=== PATIENT | female | born 1995 | race Caucasian/White ===

== ENCOUNTER → 2017-11-27 12:00 | Outpatient (REF) | payer MEDICAID, SELFPAY | LOC: LAB 12:00 | PROVIDERS: Visit Provider Nurse Practitioner Obstetrics & Gynecology | DX: Z34.90 Encounter for supervision of normal pregnancy, unspecified, unspecified trimester (principal) | CPT/HCPCS: 86403 ==

== ENCOUNTER 2017-11-29 10:58 | Outpatient (CLI) | payer MEDICAID, SELFPAY ==
[2017-11-29 11:15] VITALS: BP 134/80; PULSE 106; RESP 18; TEMP 36.6; O2SAT 99
[2017-11-29 11:17] VITALS: BP 134/80; RESP 18; TEMP 36.6; O2SAT 99; BMI 48.2
[2017-11-29 11:18] VITALS: BMI 30.4
[2017-11-29 11:40] LABS: Microscopic, Urine URINE MICROSCOPIC (MICROSCOPIC)
[2017-11-29 11:44] LABS: Appearance,Urine CLEAR (Clear); Bilirubin,Urine Negative (Negative); Blood, Urine Negative (Negative); Color,Urine STRAW (Yellow); Glucose,Urine (UA) Negative (Negative); Ketones,Urine Negative (Negative); Leukocyte Esterase,Urine TRACE (Negative); Nitrate,Urine Negative (Negative); Protein,Urine Negative (Negative); Specific Gravity, Urine 1.015 (1.005-1.030); Urobilinogen,Urine 0.2 EU/dl (0.2)
[2017-11-29 12:17] LABS: Bacteria,Urine Trace /lpf; WBC,Urine Occasional #/hpf (0-3)
[2017-11-29 12:23] LABS: Fetal Membrane Rupture (Rapid) Negative (Negative)
[2017-11-29 12:25] VITALS: BP 116/72; PULSE 91; RESP 18; TEMP 36.4; O2SAT 99
[2017-11-29 12:39] LABS: Fetal Fibronectin (Rapid) Negative (Negative)
== END 2017-11-29 12:50 | disposition home or self-care (01) ==
LOC: OBOUT 11:00 → OB 11:01
PROVIDERS: PCP Family Medicine; Visit Provider Nurse Practitioner Obstetrics & Gynecology
DX: O60.03 Preterm labor without delivery, third trimester (principal); Z3A.35 35 weeks gestation of pregnancy
CPT/HCPCS: 59025; 81001; 82731; 84112

== ENCOUNTER 2017-12-11 16:00 | Outpatient (CLI) | payer MEDICAID, SELFPAY ==
[2017-12-11 16:20] VITALS: BP 131/70; PULSE 110; RESP 16; TEMP 36.6; O2SAT 97
[2017-12-11 16:28] VITALS: PULSE 108; RESP 16; O2SAT 96; BMI 30.7
[2017-12-11 17:20] LABS: Microscopic, Urine URINE MICROSCOPIC (MICROSCOPIC)
[2017-12-11 17:25] LABS: Appearance,Urine SL CLOUDY (Clear); Bilirubin,Urine Negative (Negative); Blood, Urine Negative (Negative); Glucose,Urine (UA) Negative (Negative); Ketones,Urine Negative (Negative); Leukocyte Esterase,Urine TRACE (Negative); Nitrate,Urine Negative (Negative); Protein,Urine Negative (Negative); Specific Gravity, Urine 1.015 (1.005-1.030); Urobilinogen,Urine 0.2 EU/dl (0.2)
[2017-12-11 17:35] VITALS: BP 123/72; PULSE 90; RESP 16; O2SAT 97
[2017-12-11 17:36] LABS: Color,Urine Yellow (Yellow)
[2017-12-11 18:09] LABS: Bacteria,Urine 3+ /lpf
== END 2017-12-11 18:30 | disposition home or self-care (01) ==
LOC: OBOUT 16:04 → OB 16:06
PROVIDERS: Obstetrics & Gynecology; PCP Nurse Practitioner Obstetrics & Gynecology; Visit Provider Nurse Practitioner Obstetrics & Gynecology
DX: O26.93 Pregnancy related conditions, unspecified, third trimester (principal); Z3A.37 37 weeks gestation of pregnancy; M54.5 Low back pain
CPT/HCPCS: 59025; 81001; 87086; 96360; 96372

== ENCOUNTER 2017-12-26 15:37 | Outpatient (CLI) | payer MEDICAID, SELFPAY ==
[2017-12-26 15:45] VITALS: BMI 31.1
[2017-12-26 15:55] VITALS: BP 131/74; PULSE 118; RESP 18; TEMP 36.7; O2SAT 99; BMI 31.1
[2017-12-26 17:08] LABS: Microscopic, Urine URINE MICROSCOPIC (MICROSCOPIC)
[2017-12-26 17:11] LABS: Appearance,Urine CLEAR (Clear); Bilirubin,Urine Negative (Negative); Blood, Urine Negative (Negative); Color,Urine YELLOW (Yellow); Glucose,Urine (UA) Negative (Negative); Ketones,Urine Negative (Negative); Leukocyte Esterase,Urine 1+ (Negative); Nitrate,Urine Negative (Negative); Protein,Urine Negative (Negative); Urobilinogen,Urine 0.2 EU/dl (0.2)
[2017-12-26 17:25] LABS: Bacteria,Urine 3+ /lpf; RBC,Urine Occasional #/hpf (0-3); Squamous Epithelial Cell,Urine 20-50 #/hpf (0-5); WBC,Urine Occasional #/hpf (0-3)
== END 2017-12-26 17:25 | disposition home or self-care (01) ==
LOC: OBOUT 15:39 → OB 15:40
PROVIDERS: PCP Nurse Practitioner Family; Visit Provider Nurse Practitioner Obstetrics & Gynecology
DX: O60.03 Preterm labor without delivery, third trimester (principal); Z3A.39 39 weeks gestation of pregnancy
CPT/HCPCS: 59025; 81001; 87086

== ENCOUNTER 2018-01-02 04:51 | Inpatient (IN) | payer MEDICAID, SELFPAY ==
[2018-01-02 05:00] VITALS: BMI 30.9
[2018-01-02 06:15] VITALS: BP 120/70; PULSE 105; RESP 18; TEMP 36.7; O2SAT 99
[2018-01-02 06:26] LABS: Basophils % 0.3 % (0.1-2.0); Eosinophils # 0.3 K/mm3 (0.0-0.4); Eosinophils % 3.1 % (0.1-12.0); Hematocrit 30.1 % (37.0-47.0); Hemoglobin 10.2 g/dL (12.2-16.2); Lymphocytes # 2.4 K/mm3 (0.7-4.5); Lymphocytes % 23.8 K/mm3 (10-50); Mean Corpuscular Hemoglobin 32.3 pg (27.0-31.2); Mean Platelet Volume 8.1 fl (7.4-10.4); Monocytes # 0.5 K/mm3 (0.1-1.0); Monocytes % 4.8 % (1.7-9.3); Neutrophils % 67.9 % (37.0-80.0); Platelet Count 365 K/mm3 (142-424); Red Blood Count 3.17 M/mm3 (4.20-5.40); Red Cell Distribution Width 13.6 % (11.5-17.5); White Blood Count 10.2 K/mm3 (4.8-10.8)
--- NOTE | 2018-01-02 07:25 | HMH.LABNOT ---
Labor Note - Subjective: Date: 01/02/18 Time: 07:25 regular contraction - Objective: NST:: Reactive Contractions:: every 4-5 minutes Cervical Dilation:: 2-3 Effacement:: 50% Station: -2 Membranes: articially ruptured - Fetus: Monitoring?: Yes monitoring type:: External - Assessment: Labor progressing?: Yes Cephalopelvic disproportion?: No Patient Problems: All Active Problems (Acute) - Plan: Anesthesia for epidural?: No Continue to labor down?: Yes Plan for ?: No Continue to monitor?: Yes
--- NOTE | 2018-01-02 10:23 | HMH.LABNOT ---
Labor Note - Subjective: Date: 01/02/18 Time: 10:23 regular contraction - Objective: NST:: Reactive Contractions:: every 2-3 minutes Cervical Dilation:: 4 Effacement:: 90% Station: -1 Membranes: articially ruptured - Fetus: Monitoring?: Yes monitoring type:: External - Assessment: Labor progressing?: Yes Cephalopelvic disproportion?: No Patient Problems: All Active Problems (Acute) - Plan: Anesthesia for epidural?: No Continue to labor down?: Yes Plan for ?: No Continue to monitor?: Yes
--- NOTE | 2018-01-02 10:36 | P.HP_ITS ---
OB - H&P: HPI Antepartum - History of Present Illness Chief complaint: She is having occasional contractions. She is feeling pressure. - History of Present Criteria for establishing EDC:: LMP confirmed by 1st trimester US care: good care Ultrasounds: normal 1st trimester US, normal mid trimester US Obstetrical complications: none Medical complications: none [facility] History I have reviewed the patient's past medical history: Yes Medical History: Reports:: Depression Denies:: Cancer, Diabetes Mellitus Type 1, Diabetes Mellitus Type 2, MRSA Other Surgeries: Yes: No Previous Surgery Amputation: No Fractures: No - *Social History Educational Level: Completed High School Smoking Status: Current every day smoker Tobacco Type: cigarettes # Packs/Day (cigarettes): 10 #Yrs smoked (if former smoker): 1 Alcohol Intake: never Substance Use Type: denies use Occupational Status: employed Household Members: spouse, children - Psychiatric History Expresses thoughts of harming self/others: None Suicide Plan Description: No Plan Pschychiatric History:: Reports:: Depression *Family Hx:: Diabetes, Hypertension Review of Systems - Review of Systems Review of systems:: pertinent systems reviewed and negative unless documented below Meds Home Medications Medication Instructions Recorded Confirmed Type ferrous sulfate 325 mg (65 mg 325 mg PO DAILY tab 11/26/17 01/02/18 History iron) tablet pediatric multivitamin no.49 1 tab PO DAILY each 11/26/17 01/02/18 History chewable tablet Allergies Allergy/AdvReac Type Severity Reaction Status Date / Time penicillin G [PENICILLIN G] Allergy Mild -- Verified 12/20/17 09:52 OB - H&P: Exam - Physical Exam Vital signs: Temp Pulse Resp BP Pulse Ox 98.1 F 105 H 18 120/70 99 01/02/18 06:15 01/02/18 06:15 01/02/18 06:15 01/02/18 06:15 01/02/18 06:15 - Constitutional no acute distress - Routine HEENT Exam Head: Present: normocephalic OB - Results - Labs Labs: Short CBC 01/02/18 Range/Units 05:30 WBC 10.2 (4.8-10.8) K/mm3 Hgb 10.2 L (12.2-16.2) g/dL Hct 30.1 L (37.0-47.0) % Plt Count 365 (142-424) K/mm3 OB - A/P Antepartum (1) Normal delivery at term Current visit: Yes Status: Acute - Additional Plan Plan: expectant management (She is having occasional contractions and she is 39 + weeks gestational age. She is 4 cm dilated and josefina so we will deliver her.) Planning to breastfeed?: Yes
--- NOTE | 2018-01-02 12:21 | HMH.LABNOT ---
Labor Note - Subjective: Date: 01/02/18 Time: 12:22 regular contraction - Objective: NST:: Reactive Contractions:: every 2-3 minutes Cervical Dilation:: 6 Effacement:: 100% Station: 0 Membranes: articially ruptured - Fetus: Monitoring?: Yes monitoring type:: External - Assessment: Labor progressing?: Yes Cephalopelvic disproportion?: No Patient Problems: All Active Problems Normal delivery at term (Acute) (Acute) - Plan: Anesthesia for epidural?: Yes Continue to labor down?: Yes Plan for ?: No Continue to monitor?: Yes Start pushing?: No
--- NOTE | 2018-01-02 13:25 | HMH.LABNOT ---
Labor Note - Subjective: Date: 01/02/18 Time: 13:25 regular contraction - Objective: NST:: Reactive Contractions:: every 2-3 minutes Cervical Dilation:: 9 Effacement:: 100% Station: 0 Membranes: articially ruptured - Fetus: Monitoring?: Yes monitoring type:: External - Assessment: Labor progressing?: Yes Cephalopelvic disproportion?: No Patient Problems: All Active Problems Normal delivery at term (Acute) (Acute) - Plan: Anesthesia for epidural?: Yes Continue to labor down?: Yes Plan for ?: No Continue to monitor?: Yes Start pushing?: No
--- NOTE | 2018-01-02 15:19 | P.PCN_ITS ---
- Delivery Note Delivery Date:: 01/02/18 Delivery Time:: 15:05 Anesthesia Type: Epidural Was labor medically induced?: No Induction method: none delivered prior to 39 weeks?: No Gender: Male at 1 minute: 9 at 5 minutes: 9 AF:: Clear fluid Delivery Procedure:: She is a 22-year-old 2 para 1 who was 40 and 1 weeks gestational age. She came in having a few contractions and as result of that we elected to augment her labor. She was started on IV oxytocin had her membranes ruptured. Under labor epidural she progressed to full dilation and delivered spontaneously a liveborn male child. On deliver the head there was a loose nuchal cord which was easily reduced. This was followed by the rest of the infant's body atraumatically. The baby cried spontaneously. The nasopharynx and oropharynx were bulb suctioned. We allowed the cord to continue to pulsate for approximately 45 seconds. The cord was then doubly clamped and cut and the was handed off to nurses who assigned Apgars of 9 at 1 minute and 9 at 5 minutes. We then obtained cord blood as well as cord pH. The pH is currently pending. Using gentle traction on the cord and countertraction on the fundus I was able to easily deliver the placenta intact. He had a normal three-vessel cord. There were no perineal or vaginal lacerations. She has B+ blood, she is rubella immune and was group B streptococcus negative. She plans to bottle feed. Her grease rack worker Dr. Durham. Estimated blood loss was 400 cc. Placental Delivery Description: Spontaneous
[2018-01-03 06:47] LABS: Hematocrit 29.1 % (37.0-47.0); Hemoglobin 9.7 g/dL (12.2-16.2)
--- NOTE | 2018-01-03 10:33 | HMH.ACPN2 ---
Internal Medicine - PN: Subj *Date: 01/03/18 *Time: 10:33 Interval history: She has done well overnight. She is eating and drinking and ambulating. She is bottlefeeding. Her lochia is normal. Exam Vital signs and Labs for Last 24 Hours: Temp Pulse Resp BP Pulse Ox 98.1 F 105 H 18 120/70 99 01/02/18 06:15 01/02/18 06:15 01/02/18 06:15 01/02/18 06:15 01/02/18 06:15 Laboratory Results - last 24 hr 01/02/18 15:15: Cord ABG pH 7.40 01/03/18 06:30: Hgb 9.7 L, Hct 29.1 L I & O for Last 24 hours: Intake & Output 12/31/17 01/01/18 01/02/18 01/03/18 11:59 11:59 11:59 11:59 Weight 175 lb - Constitutional no acute distress Assessment and Plan (1) Normal delivery at term Current visit: Yes Status: Acute Category: Medical Code(s): O80 - Encounter for full-term uncomplicated delivery - Assessment and plan all Dx Assessment and Plan for all problems:: She continues to do very well. She is eating and drinking and ambulating. We will plan to send her home tomorrow.
--- NOTE | 2018-01-03 19:15 | PC.NURSE ---
Report received from JARED Cochran and JARED William.
[2018-01-03 22:34] VITALS: BP 121/59; PULSE 77; RESP 18; TEMP 36.6
--- NOTE | 2018-01-04 08:08 | HMH.DCSUM ---
General - General Admission date: 01/02/18 Discharge date: 01/04/18 HPI HPI: She is a 22-year-old 2 now para 2 who was 40 and 1 weeks gestational age. She is having pressure and occasional contractions and as a result of that we elected to augment her labor. Objective Vital signs: Temp Pulse Resp BP Pulse Ox 97.8 F 77 18 121/59 99 01/03/18 22:34 01/03/18 22:34 01/03/18 22:34 01/03/18 22:34 01/02/18 06:15 no acute distress Hospital Course Hospital Course: She had her membranes ruptured and was augmented with oxytocin. She progressed to full dilation and delivered spontaneously a liveborn male child at 3:05 PM in the afternoon of January 02, 2018. The baby had Apgars of 9 at 1 minute and 9 at 5 minutes. She has done well and has remained afebrile throughout her hospitalization. She is eating and drinking and ambulating. She is bottlefeeding. Her lockstitch front maker is Dr. Durham. She has B+ blood, she is rubella immune and was group B Streptococcus negative. She is discharged home to follow-up with me in approximately 2 weeks time. She will take [id number] analgesics for pain. She will continue with her vitamins and iron. DS: Diagnosis - Discharge Diagnosis (1) Normal delivery at term Status: Acute Discharge Plan - Patient Discharge Instructions ACTIVITY: Continue current activity, No heavy lifting DIET: continue same diet - Follow up Plan Disposition: Home, Self-Assisted Medications: Home Medications Medication Instructions Recorded Confirmed Type ferrous sulfate 325 mg (65 mg 325 mg PO DAILY tab 11/26/17 01/02/18 History iron) tablet pediatric multivitamin no.49 1 tab PO DAILY each 11/26/17 01/02/18 History chewable tablet Prescriptions/Medication Reconciliation: Continue ferrous sulfate 325 mg (65 mg iron) tablet 325 mg PO DAILY tab pediatric multivitamin no.49 chewable tablet 1 tab PO DAILY each ranitidine 150 mg tablet 150 mg PO BID 30 Days #60 tab
--- NOTE | 2018-01-04 08:12 | P.DS_ITS ---
General - General Admission date: 01/02/18 Discharge date: 01/04/18 HPI HPI: She is a 22-year-old 2 now para 2 who was 40 and 1 weeks gestational age. She is having pressure and occasional contractions and as a result of that we elected to augment her labor. Objective Vital signs: Temp Pulse Resp BP Pulse Ox 97.8 F 77 18 121/59 99 01/03/18 22:34 01/03/18 22:34 01/03/18 22:34 01/03/18 22:34 01/02/18 06:15 no acute distress Hospital Course Hospital Course: She had her membranes ruptured and was augmented with oxytocin. She progressed to full dilation and delivered spontaneously a liveborn male child at 3:05 PM in the afternoon of January 02, 2018. The baby had Apgars of 9 at 1 minute and 9 at 5 minutes. She has done well and has remained afebrile throughout her hospitalization. She is eating and drinking and ambulating. She is bottlefeeding. Her extension course coordinator is Dr. Durham. She has B+ blood, she is rubella immune and was group B Streptococcus negative. She is discharged home to follow-up with me in approximately 2 weeks time. She will take [id number] analgesics for pain. She will continue with her vitamins and iron. DS: Diagnosis - Discharge Diagnosis (1) Normal delivery at term Status: Acute Discharge Plan - Patient Discharge Instructions ACTIVITY: Continue current activity, No heavy lifting DIET: continue same diet - Follow up Plan Disposition: Home, Self-Senior Living Medications: Home Medications Medication Instructions Recorded Confirmed Type ferrous sulfate 325 mg (65 mg 325 mg PO DAILY tab 11/26/17 01/02/18 History iron) tablet pediatric multivitamin no.49 1 tab PO DAILY each 11/26/17 01/02/18 History chewable tablet Prescriptions/Medication Reconciliation: Continue ferrous sulfate 325 mg (65 mg iron) tablet 325 mg PO DAILY tab pediatric multivitamin no.49 chewable tablet 1 tab PO DAILY each ranitidine 150 mg tablet 150 mg PO BID 30 Days #60 tab
== END 2018-01-04 11:15 | disposition home or self-care (01) | DRG 775 ==
LOC: OB 04:52
PROVIDERS: Admitting Provider Obstetrics & Gynecology; Family Provider Nurse Anesthetist, Certified Registered; Visit Provider Nurse Practitioner Obstetrics & Gynecology
DX: O69.81X0 Labor and delivery complicated by cord around neck, without compression, not applicable or unspecified (principal); Z37.0 Single live birth; Z3A.40 40 weeks gestation of pregnancy
CPT/HCPCS: 59409; 36415; 59025; 82800; 85014; 85018; 85025; 86850

== ENCOUNTER 2018-03-20 00:43 | Observation (INO) ==
--- NOTE | 2018-03-20 00:58 | Emergency Department Note ---
ED Disposition Clinical Impression: Pelvic pain, Pelvic fluid collection Disposition: Still a Patient Condition on Discharge: Good Referrals: Nita Durham DO [Primary Care Provider] - - Critical Care Critical Care Time: No Attestation: On 03/20/18, the high probability of a clinically significant, sudden or life threatening deterioration of the following system(s) required my full and direct attention, intervention and personal management. The time I documented below is in addition to time spent performing reported procedures but includes the following listed in this critical care notation. Medical Decision Making - Tariq Inquiry Pt receiving controlled substance: No Vital Signs: 03/20/18 00:44 Temperature 97.9 F Temperature Source Oral Pulse Rate [Right Radial] 116 H Respiratory Rate 20 Blood Pressure [Right Arm] 125/60 Blood Pressure Mean [Right Arm] 81 Blood Pressure Source [Right Arm] Automatic Cuff Blood Pressure Position [Right Arm] Sitting 02 Sat by Pulse Oximetry 100 Oxygen Delivery Method Room Air - Lab Data Lab Results 03/20/18 01:00: Urine Color Yellow, Urine Appearance Clear, Urine pH 6.5, Ur Specific [place] 1.015, Urine Protein Negative, Urine Glucose (UA) Negative, Urine Ketones Negative, Urine Blood Negative, Urine Nitrate Negative, Urine Bilirubin Negative, Urine Urobilinogen 0.2, Ur Leukocyte Esterase Negative, Urine WBC Occasional, Ur Squamous Epith Cells Occasional, Urine Bacteria Trace 03/20/18 01:00: WBC 11.1 H, RBC 3.70 L, Hgb 11.7 L, Hct 35.0 L, MCV 94.5, MCH 31.6 H, MCHC 33.4, RDW 13.5, Plt Count 341, MPV 7.7, Neut % (Auto) 65.4, Lymph % (Auto) 25.4, [place] % (Auto) 5.0, Eos % (Auto) 3.8, Baso % (Auto) 0.3, Neut # ( Auto) 7.3, Lymph # (Auto) 2.8, [place] # (Auto) 0.6, Eos # (Auto) 0.4, Baso # (Auto ) 0.0 03/20/18 01:00: Urine HCG, Qual Negative 03/20/18 01:00: Sodium 140, Potassium 3.5, Chloride 105, Carbon Dioxide 26, Anion Gap 12.5, BUN 8, Creatinine 0.85, Estimated Creat Clear 121, Estimated GFR 82, Est GFR ( Amer) 99, Glucose 109 H, Calcium 8.8, Total Bilirubin 0.2, AST 19, ALT 33, Alkaline Phosphatase 91, Total Protein 7.3, Albumin 3.7, Globulin 3.6 H, Albumin/Globulin Ratio 1.0 L, Amylase 36, Lipase 131 Result diagrams: 03/20/18 01:00 03/20/18 01:00 Orders (Tests/Meds): ED MEDICATIONS Discontinued Medications Generic Name Dose Route Start Last Admin Trade Name Freq PRN Reason Stop Dose Admin Acetaminophen 650 mg 03/20/18 02:08 03/20/18 02:10 Acetaminophen 325mg Tab PO 03/20/18 02:09 650 mg ONCE ONE Administration Sodium Chloride 1,000 mls @ 999 mls/hr 03/20/18 01:00 03/20/18 01:00 Sod Chlor 0.9% 1000ml Bag IV 03/20/18 02:00 Not Given .Q1H1M SEAMUS Lactated Ringer's 1,000 mls @ 999 mls/hr 03/20/18 01:00 03/20/18 01:04 Lactated Ringer's 1000 Ml Bag IV 03/20/18 02:00 999 mls/hr .Q1H1M SEAMUS Administration Iopamidol 75 ml 03/20/18 02:14 03/20/18 02:16 [id number]; 75ml Vial IV 03/20/18 02:15 75 ml ONCE ONE Administration Ondansetron HCl 4 mg 03/20/18 00:56 03/20/18 01:04 Zofran 4mg/2ml Vial IV 03/20/18 00:57 4 mg ONCE ONE Administration Sodium Chloride 10 ml 03/20/18 02:14 03/20/18 02:15 Rad-Saline Flush 10ml Syringe IV 03/20/18 02:15 10 ml ONCE ONE Administration ORDERS Category Date Time Status CT abdomen pelvis w con Stat Cat Scan 03/20/18 01:10 Taken Urinalysis and Microscopic Stat Lab 03/20/18 01:47 Ordered - CT Data CT Scan: Abdomen, Pelvis Time Received: 02:[address] Reviewed: Yes: I have viewed the radiologist's interpretation Findings Narrative: CT scan interpreted by [facility] radiologist. Faxed report received and reviewed: Normal appendix. Mildly complex free pelvic fluid measuring 6.8 x 6.8 x 5.2 cm. Subtle peritoneal enhancement is felt to be present. Recommend laboratory correlation for potential abscess. Medical Decision Narrative: 2:20 AM: Case discussed with Dr. Santos. He prefers to admit the patient to observation, pelvic ultrasound this morning, repeat CBC at 6 AM. Patient agreeable. General Adult HPI - General Chief complaint: Back Pain/Injury Stated complaint: Lower Back Pain,Cramping in Abdominal area Time Seen by Provider: 03/20/18 01:00 Mode of Arrival: Ambulatory Limitations: No Limitations Description of Symptoms (Recalled from ER Triage Doc. by RN): had some cramps at work earlier today, low back pain and into abdomen with cramping during sex, started about 30 minutes ago, 2 months post pardum, due for period in about 2 days - History of Present Illness HPI narrative: Pelvic cramping since Sunday 2 days ago. Got worse in the past couple of hours. Pain radiates up her right side and she also has pain in her sacral area. She had bilateral salpingectomy on 02/26/18 for sterilization. No vaginal bleeding for 2 weeks. States normal bowel movements, no constipation, no urinary symptoms, no fever. - Related Data Home Medications Medication Instructions Recorded Confirmed raNITIdine HCl [Ranitidine HCl] 150 mg PO DAILY 03/20/18 03/20/18 Allergies Allergy/AdvReac Type Severity Reaction Status Date / Time penicillin G [PENICILLIN G] Allergy Mild -- Verified 03/13/18 14:00 [facility] History I have reviewed the patient's past medical history: Yes Medical History: Reports:: Depression Denies:: Cancer, Diabetes Mellitus Type 1, Diabetes Mellitus Type 2, MRSA, Seizures Other Medical History: Reports: Other. Denies: Blood Transfusion Reaction Other Surgeries: Yes: No Previous Surgery Amputation: No Fractures: No - Social History Smoking Status: Current every day smoker Tobacco Type: cigarettes # Packs/Day (cigarettes): 1 #Yrs smoked (if former smoker): 1 Alcohol Intake: never Substance Use Type: denies use Occupational Status: employed Household Members: spouse, children - Psychiatric History Expresses thoughts of harming self/others: None Suicide Plan Description: No Plan Pschychiatric History:: Reports:: Depression Family Hx:: Diabetes, Hypertension Comment: Twins ROS Obtained: Yes All systems reviewed & no additional complaints - Constitutional Constitutional: Denies fever(s) - Gastrointestinal Gastrointestingal: Reports: abdominal pain. Denies: constipation, diarrhea, vomiting - Genitourinary Female Genitourinary: Denies abnormal vaginal bleeding, Denies difficulty voiding - Musculoskeletal Musculoskeletal: Reports back pain Physical Exam - General General appearance: alert, in no apparent distress - Head Head exam: atraumatic, normocephalic, normal inspection - Eye Eye exam: Present: normal appearance, PERRL, EOMI - ENT ENT exam: Present: normal exam, normal oropharynx, mucous membranes moist, TM's normal bilaterally, normal external ear exam - Neck Neck exam: Present: normal inspection, full ROM, trachea midline. Absent: meningismus, lymphadenopathy - Chest Chest inspection: Present: normal inspection, symmetric chest wall rise. Absent : tenderness - Respiratory Respiratory exam: Present: normal lung sounds bilaterally. Absent: respiratory distress - Cardiovascular Cardiovascular exam: Present: regular rate, normal rhythm. Absent: JVD - Abdominal Exam Abdominal exam: Present: soft, tenderness, guarding, normal bowel sounds. Absent: distention Abdominal tenderness: Present: RLQ, LLQ, suprapubic - Extremities Exam Extremities exam: Present: normal inspection, full ROM, normal capillary refill. Absent: calf tenderness - Neurological Exam Neurological exam: Present: alert, oriented X3 - Psychiatric Psychiatric exam: Present: normal affect, normal mood - Skin Skin exam: Present: warm, dry, intact, normal color - Lymphatic Lymphatic Findings: no adenopathy
[2018-03-20 01:08] LABS: Appearance,Urine CLEAR (Clear); Bilirubin,Urine Negative (Negative); Blood, Urine Negative (Negative); Color,Urine YELLOW (Yellow); Glucose,Urine (UA) Negative (Negative); Ketones,Urine Negative (Negative); Leukocyte Esterase,Urine Negative (Negative); Microscopic, Urine URINE MICROSCOPIC (MICROSCOPIC); PH,Urine 6.5 (5.0-8.5); Protein,Urine Negative (Negative); Specific Gravity, Urine 1.015 (1.005-1.030); Urobilinogen,Urine 0.2 EU/dl (0.2)
[2018-03-20 01:09] LABS: Basophils % 0.3 % (0.1-2.0); Eosinophils # 0.4 K/mm3 (0.0-0.4); Eosinophils % 3.8 % (0.1-12.0); Hemoglobin 11.7 g/dL (12.2-16.2); Lymphocytes # 2.8 K/mm3 (0.7-4.5); Lymphocytes % 25.4 K/mm3 (10-50); Mean Corpuscular HGB Conc 33.4 g/dL (31.8-35.4); Mean Corpuscular Hemoglobin 31.6 pg (27.0-31.2); Mean Corpuscular Volume 94.5 fl (81-99); Mean Platelet Volume 7.7 fl (7.4-10.4); Monocytes # 0.6 K/mm3 (0.1-1.0); Neutrophils # 7.3 K/mm3 (1.8-7.8); Neutrophils % 65.4 % (37.0-80.0); Platelet Count 341 K/mm3 (142-424); Red Cell Distribution Width 13.5 % (11.5-17.5); White Blood Count 11.1 K/mm3 (4.8-10.8)
[2018-03-20 01:12] LABS: Bacteria,Urine Trace /lpf; Squamous Epithelial Cell,Urine Occasional #/hpf (0-5); WBC,Urine Occasional #/hpf (0-3)
[2018-03-20 01:29] LABS: Albumin Level 3.7 gm/dL (3.4-5.0); Anion Gap 12.5 mEq/L (5-15); Bilirubin,Total 0.2 mg/dL (0.2-1.0); Calcium 8.8 mg/dL (8.5-10.1); Globulin 3.6 gm/dl (1.3-3.2); Potassium 3.5 mmoL/L (3.5-5.1); Total Protein,Serum 7.3 gm/dL (6.4-8.2)
[2018-03-20 06:41] LABS: Basophils % 0.4 % (0.1-2.0); Eosinophils # 0.3 K/mm3 (0.0-0.4); Eosinophils % 3.1 % (0.1-12.0); Hematocrit 34.7 % (37.0-47.0); Hemoglobin 11.4 g/dL (12.2-16.2); Lymphocytes # 2.4 K/mm3 (0.7-4.5); Mean Corpuscular HGB Conc 32.9 g/dL (31.8-35.4); Mean Corpuscular Hemoglobin 31.4 pg (27.0-31.2); Mean Corpuscular Volume 95.3 fl (81-99); Mean Platelet Volume 7.6 fl (7.4-10.4); Monocytes # 0.6 K/mm3 (0.1-1.0); Monocytes % 5.3 % (1.7-9.3); Neutrophils # 7.6 K/mm3 (1.8-7.8); Neutrophils % 69.3 % (37.0-80.0); Platelet Count 325 K/mm3 (142-424); Red Blood Count 3.64 M/mm3 (4.20-5.40); Red Cell Distribution Width 13.5 % (11.5-17.5)
--- NOTE | 2018-03-20 08:06 | History & Physical Report ---
*Admission Date: 03/20/18 *Chief complaint: Pelvic pain *History of present illness: She came into the ER last night with lower abdominal pain. She said that she was having sex and as soon as she started she began to have severe lower abdominal pain. She had a bilateral salpingectomy for family planning on February 26, 2018. Since that time she says she has had sexual intercourse and had no pain. She denies fever or chills. [facility] History I have reviewed the patient's past medical history: Yes Medical History: Reports:: Depression Denies:: Cancer, Diabetes Mellitus Type 1, Diabetes Mellitus Type 2, MRSA, Seizures Other Medical History: Reports: Other. Denies: Blood Transfusion Reaction Other Surgeries: Yes: No Previous Surgery, Tubal Ligation Amputation: No Fractures: No - *Social History Educational Level: Completed High School Smoking Status: Current every day smoker Tobacco Type: cigarettes # Packs/Day (cigarettes): 1 #Yrs smoked (if former smoker): 1 Alcohol Intake: never Substance Use Type: denies use Occupational Status: employed Housing: house Household Members: spouse, children - Psychiatric History Expresses thoughts of harming self/others: None Suicide Plan Description: No Plan Pschychiatric History:: Reports:: Depression *Family Hx:: Diabetes, Hypertension Review of Systems - Review of Systems Review of systems:: pertinent systems reviewed and negative unless documented below Meds Home Medications Medication Instructions Recorded Confirmed Type raNITIdine HCl [Ranitidine HCl] 150 mg PO BID 03/20/18 03/20/18 History Allergies Allergy/AdvReac Type Severity Reaction Status Date / Time No Known Allergies Allergy Verified 03/20/18 03:19 Exam Vital signs and Labs for Last 24 Hours: Temp Pulse Resp BP Pulse Ox 98.1 F 93 H 16 106/52 100 03/20/18 07:57 03/20/18 07:57 03/20/18 07:57 03/20/18 07:57 03/20/18 07:57 Laboratory Results - last 24 hr 03/20/18 01:00: Urine Color Yellow, Urine Appearance Clear, Urine pH 6.5, Ur Specific [place] 1.015, Urine Protein Negative, Urine Glucose (UA) Negative, Urine Ketones Negative, Urine Blood Negative, Urine Nitrate Negative, Urine Bilirubin Negative, Urine Urobilinogen 0.2, Ur Leukocyte Esterase Negative, Urine WBC Occasional, Ur Squamous Epith Cells Occasional, Urine Bacteria Trace 03/20/18 01:00: WBC 11.1 H, RBC 3.70 L, Hgb 11.7 L, Hct 35.0 L, MCV 94.5, MCH 31.6 H, MCHC 33.4, RDW 13.5, Plt Count 341, MPV 7.7, Neut % (Auto) 65.4, Lymph % (Auto) 25.4, Story % (Auto) 5.0, Eos % (Auto) 3.8, Baso % (Auto) 0.3, Neut # ( Auto) 7.3, Lymph # (Auto) 2.8, Story # (Auto) 0.6, Eos # (Auto) 0.4, Baso # (Auto ) 0.0 03/20/18 01:00: Urine HCG, Qual Negative 03/20/18 01:00: Sodium 140, Potassium 3.5, Chloride 105, Carbon Dioxide 26, Anion Gap 12.5, BUN 8, Creatinine 0.85, Estimated Creat Clear 121, Estimated GFR 82, Est GFR ( Amer) 99, Glucose 109 H, Calcium 8.8, Total Bilirubin 0.2, AST 19, ALT 33, Alkaline Phosphatase 91, Total Protein 7.3, Albumin 3.7, Globulin 3.6 H, Albumin/Globulin Ratio 1.0 L, Amylase 36, Lipase 131 03/20/18 06:05: WBC 11.0 H, RBC 3.64 L, Hgb 11.4 L, Hct 34.7 L, MCV 95.3, MCH 31.4 H, MCHC 32.9, RDW 13.5, Plt Count 325, MPV 7.6, Neut % (Auto) 69.3, Lymph % (Auto) 22.0, Story % (Auto) 5.3, Eos % (Auto) 3.1, Baso % (Auto) 0.4, Neut # ( Auto) 7.6, Lymph # (Auto) 2.4, Story # (Auto) 0.6, Eos # (Auto) 0.3, Baso # (Auto ) 0.0 I & O for Last 24 hours: Intake & Output 03/17/18 03/18/18 03/19/18 03/20/18 11:59 11:59 11:59 11:59 Weight 161 lb 6 oz - Constitutional no acute distress - *Routine HEENT Exam Head: Present: normocephalic - *Routine Respiratory Exam Comments: She has normal breath sounds with no accessory muscle use. - *Routine Cardiovascular Exam Present: RRR - *Routine Abdominal Exam Present: soft, tenderness Comments: She is slightly tender to palpation but there is no peritoneal signs. Her belly is soft. - *Routine Exam Patient deferred: external exam, perineal exam - *Routine Extremities Exam Comments: She has good range of motor of all her extremities. - *Routine Skin Exam Present: intact H&P: Result - Labs Labs: Short CBC 03/20/18 03/20/18 Range/Units 01:00 06:05 WBC 11.1 H 11.0 H (4.8-10.8) K/mm3 Hgb 11.7 L 11.4 L (12.2-16.2) g/dL Hct 35.0 L 34.7 L (37.0-47.0) % Plt Count 341 325 (142-424) K/mm3 BMP 03/20/18 01:00 Sodium 140 Potassium 3.5 Chloride 105 Carbon Dioxide 26 BUN 8 Creatinine 0.85 Glucose 109 H Calcium 8.8 Liver Function 03/20/18 Range/Units 01:00 Total Bilirubin 0.2 (0.2-1.0) mg/dL AST 19 (15-37) U/L ALT 33 (12-78) U/L Alkaline Phosphatase 91 (46-116) U/L Albumin 3.7 (3.4-5.0) gm/dL Urine 03/20/18 Range/Units 01:00 Urine Color Yellow (Yellow) Urine Appearance Clear (Clear) Urine pH 6.5 (5.0-8.5) Ur Specific [place] 1.015 (1.005-1.030) Urine Protein Negative (Negative) Urine Glucose (UA) Negative (Negative) Assessment and Plan (1) Pelvic fluid collection Current visit: Yes Status: Acute Category: Medical Code(s): R18.8 - Other ascites (2) Pelvic pain Current visit: Yes Status: Acute Category: Medical Code(s): R10.2 - Pelvic and perineal pain - Assessment and plan all Dx Assessment and Plan for all problems:: She had a CT scan last night that showed a 6 cm collection of fluid in the pelvis. They were concerned about an abscess but she has no evidence of this on her clinical examination. I suspect she may have had a ruptured ovarian cyst since she had pain with intercourse as soon as she started. We will get a transvaginal ultrasound this morning to confirm this collection of fluid. If there is any doubt about an abscess we will certainly plan to perform surgery later today. Her white cell count is just 11. It has not changed overnight. She has no fever. Is not been taking anything for pain. She took one Tylenol last night.
--- NOTE | 2018-03-20 08:21 | Pharmacy Consult Notes ---
[facility] Pharmacy VTE Monitoring - Patient Demographics Admission date: 03/19/18 Report Date: 03/20/18 Time: 08:21 Allergies/Adverse Reactions: Patient Allergies No Known Allergies Allergy (Verified 03/20/18 03:19) Height: 1.6 m Weight: 73.198 kg Patient Problems: Current Active Problems Pelvic pain (Acute) Pelvic fluid collection (Acute) - VTE Risk Labs: VTE Related Lab Results Hgb 11.4 g/dL (12.2-16.2) L 03/20/18 06:05 Hct 34.7 % (37.0-47.0) L 03/20/18 06:05 Plt Count 325 K/mm3 (142-424) 03/20/18 06:05 BUN 8 mg/dL (7-18) 03/20/18 01:00 Creatinine 0.85 mg/dL (0.55-1.02) 03/20/18 01:00 Estimated Creat Clear 121 mL/min (0-300) 03/20/18 01:00 Was VTE Risk Assessment Performed: Yes VTE Score: 1 VTE Risk Level: Very Low Risk Clinical Trial Participant: No - Prophylaxis VTE Prophylaxis Ordered?: Yes Types of VTE Prophylaxis: TEDS Knee High
[2018-03-20 16:03] VITALS: BP 102/60
--- NOTE | 2018-03-20 17:02 | Discharge Summary ---
General - General Admission date:: 03/20/18 Discharge date: 03/20/18 HPI HPI: She came into the ER last night with lower abdominal pain. She said that she was having sex and as soon as she started she began to have severe lower abdominal pain. She had a bilateral salpingectomy for family planning on February 26, 2018. Since that time she says she has had sexual intercourse and had no pain. She denies fever or chills. Hospital Course Hospital Course: She has been doing well throughout the day. She had a repeat ultrasound that just showed a 5 cm hemorrhagic ovarian cyst on the right ovary. There was some fluid in the pelvis. Her white cell count has not gone up and she has remained afebrile. Her pain is mild to moderate. It is not gotten any worse. She is just been taking Tylenol for pain. We will plan to discharge her home today to follow-up with me early next week with another ultrasound. We will return to the ER if she gets any further episodes of pain or fever. Objective Vital signs: Temp Pulse Resp BP Pulse Ox 98.1 F 78 16 102/60 96 03/20/18 15:55 03/20/18 15:55 03/20/18 15:55 03/20/18 15:55 03/20/18 15:55 no acute distress Results Labs on day of discharge: Labs from last 24 hours 03/20/18 03/20/18 03/20/18 06:05 01:00 01:00 WBC 11.0 H RBC 3.64 L Hgb 11.4 L Hct 34.7 L MCV 95.3 MCH 31.4 H MCHC 32.9 RDW 13.5 Plt Count 325 MPV 7.6 Neut % (Auto) 69.3 Lymph % (Auto) 22.0 Craig % (Auto) 5.3 Eos % (Auto) 3.1 Baso % (Auto) 0.4 Neut # (Auto) 7.6 Lymph # (Auto) 2.4 Craig # (Auto) 0.6 Eos # (Auto) 0.3 Baso # (Auto) 0.0 Sodium 140 Potassium 3.5 Chloride 105 Carbon Dioxide 26 Anion Gap 12.5 BUN 8 Creatinine 0.85 Estimated Creat Clear 121 Estimated GFR 82 Est GFR ( Amer) 99 Glucose 109 H Calcium 8.8 Total Bilirubin 0.2 AST 19 ALT 33 Alkaline Phosphatase 91 Total Protein 7.3 Albumin 3.7 Globulin 3.6 H Albumin/Globulin Ratio 1.0 L Amylase 36 Lipase 131 Urine Color Urine Appearance Urine pH Ur Specific [place] Urine Protein Urine Glucose (UA) Urine Ketones Urine Blood Urine Nitrate Urine Bilirubin Urine Urobilinogen Ur Leukocyte Esterase Urine WBC Ur Squamous Epith Cells Urine Bacteria Urine HCG, Qual Negative 03/20/18 03/20/18 01:00 01:00 WBC 11.1 H RBC 3.70 L Hgb 11.7 L Hct 35.0 L MCV 94.5 MCH 31.6 H MCHC 33.4 RDW 13.5 Plt Count 341 MPV 7.7 Neut % (Auto) 65.4 Lymph % (Auto) 25.4 Craig % (Auto) 5.0 Eos % (Auto) 3.8 Baso % (Auto) 0.3 Neut # (Auto) 7.3 Lymph # (Auto) 2.8 Craig # (Auto) 0.6 Eos # (Auto) 0.4 Baso # (Auto) 0.0 Sodium Potassium Chloride Carbon Dioxide Anion Gap BUN Creatinine Estimated Creat Clear Estimated GFR Est GFR ( Amer) Glucose Calcium Total Bilirubin AST ALT Alkaline Phosphatase Total Protein Albumin Globulin Albumin/Globulin Ratio Amylase Lipase Urine Color Yellow Urine Appearance Clear Urine pH 6.5 Ur Specific [place] 1.015 Urine Protein Negative Urine Glucose (UA) Negative Urine Ketones Negative Urine Blood Negative Urine Nitrate Negative Urine Bilirubin Negative Urine Urobilinogen 0.2 Ur Leukocyte Esterase Negative Urine WBC Occasional Ur Squamous Epith Cells Occasional Urine Bacteria Trace Urine HCG, Qual DS: Diagnosis - Discharge Diagnosis (1) Pelvic fluid collection Status: Acute (2) Pelvic pain Status: Acute Discharge Plan - Patient Discharge Instructions ACTIVITY: No heavy lifting DIET: continue same diet - Follow up Plan Disposition: Home, Self-Assisted Medications: Home Medications Medication Instructions Recorded Confirmed Type raNITIdine HCl [Ranitidine HCl] 150 mg PO BID 03/20/18 03/20/18 History Prescriptions/Medication Reconciliation: Continue raNITIdine HCl [Ranitidine HCl] 150 mg PO BID
== END 2018-03-20 17:40 | disposition home or self-care (01) ==
LOC: ER 00:43 → 2ND 00:43
PROVIDERS: ADMIT Nurse Practitioner Obstetrics & Gynecology; ATTEND Nurse Practitioner Obstetrics & Gynecology

== ENCOUNTER 2018-12-13 08:57 | Outpatient (RCR) | payer MEDICAID, SELFPAY ==
--- NOTE | 2018-12-13 09:51 | HMH.PTOPEV ---
PT Outpatient Evaluation Rehab PT Outpatient Evaluation Start: 12/13/18 09:36 Freq: Status: Active Protocol: Document 12/13/18 09:36 DIALLO (Rec: 12/13/18 09:50 DIALLO [id number]) Electronically Signed By Parth Gan, PT 12/13/18 09:36 Outpatient Therapy Subjective History Subjective History Pt is a 23 year old female presenting to outpatient PT with reports of R hip pain starting 07/2018 of insidious onset. Pt most recently received a steriod injection that has provided some significant relief. Signs and symptoms consistent with R trochanteric bursitis/ITB syndrome. Pt reports hx of chronic low back pain as well starting after a lifting injury. No hx of BLE radicular symptoms. Chief Complaint Pain Weakness Symptom Type Ache Sharp Symptoms Relieved By Rest/Positioning Ice OTC Meds Symptoms Aggravated By Standing Physical Activity Walking Prior Functional Limitations None Current Functional Limitations Lifting Housework Sleeping Standing Recreation Activity Walking Stairs Symptom Description Constant but Variable Intermittent Level of pain today (0-10) 2 Pain scale - at its best (0-10) 0 Pain scale - at its worst (0-10) 5 Hip/Knee Eval Gait Observation General Gait Pattern Observation No Deviations/Normal Assistive Device Assistive Devices None / NA Palpation Tenderness right Knee Palpation Overall Comment troch bursa, piriformis Hip Palpation Findings Tenderness MMT left Hip Strength Reason Not Measured WFL Knee Strength Reason Not Measured WFL right Hip Flexion Strength Grade 4 Good Hip Abduction Strength Grade 4 Good Hip Adduction Strength Grade 4- Good- Hip Extension Strength Grade 4- Good- Hip External Rotation Strength Grade 4- Good- Hip Internal Rotation Strength Grade 4- Good- Knee Strength Reason Not Measured WFL ROM left Hip ROM Reason Not Measured Within Function
== END 2018-12-13 08:59 | disposition home or self-care (01) ==
LOC: PT 08:57
PROVIDERS: Visit Provider Internal Medicine Adolescent Medicine
DX: M76.31 Iliotibial band syndrome, right leg (principal); M70.61 Trochanteric bursitis, right hip
CPT/HCPCS: 97163

== ENCOUNTER → 2019-02-25 11:40 | Outpatient (CLI) | payer MEDICAID, SELFPAY ==
--- NOTE | 2019-02-25 11:45 | XR_ITS ---
EXAM: XR lumbar spine min 4V HISTORY: ITS.REASON: LOW BACK PAIN ORDERING PHYSICIAN: Vira Garcia PATIENT AGE: 23 years COMPARISON: None FINDINGS: There is minimal lumbar curvature convex left. The disc spaces are well-preserved. No fracture or dislocation is evident. No lytic or blastic change. The SI joints have an unremarkable appearance. IMPRESSION: Minimal lumbar curvature convex left otherwise negative lumbar spine
== END ==
PROVIDERS: PCP Internal Medicine Adolescent Medicine; Visit Provider Nurse Practitioner Family
DX: M54.5 Low back pain (principal); G89.29 Other chronic pain
CPT/HCPCS: 72110

== ENCOUNTER → 2019-06-13 07:27 | Outpatient (CLI) | payer MEDICAID, SELFPAY ==
--- NOTE | 2019-06-13 07:31 | US_ITS ---
US gallbladder HISTORY: ITS.REASON: RUQ PAIN ORDERING PHYSICIAN: Aaron Moreira MD PATIENT AGE: 24 years Comparison: None FINDINGS: Common bile duct is normal measuring 2.3 mm. Visualized portions of the pancreas, IVC, portal vein and hepatic veins appear normal. There is a small amount of linear sludge in the gallbladder without stones and there is no gallbladder wall thickening or pericholecystic fluid. Liver and right kidney are normal. Impression: Small amount of gallbladder sludge. No definite gallstone or acute inflammation.
== END ==
PROVIDERS: PCP Internal Medicine Adolescent Medicine; Visit Provider Internal Medicine Adolescent Medicine
DX: R10.11 Right upper quadrant pain (principal)
CPT/HCPCS: 76705

== ENCOUNTER → 2019-06-27 09:58 | Outpatient (CLI) | payer MEDICAID, SELFPAY ==
--- NOTE | 2019-06-27 10:03 | NM_ITS ---
NM hepatobiliary w pharm HISTORY: ITS.REASON: RUQ PAIN,ABD PAIN ORDERING PHYSICIAN: Aaron Moreira MD PATIENT AGE: 24 years COMPARISON: 06/13/2019 DOSE: 7.80 mci tc choletec 1.3 mcg of cck injected into rt ant. FINDINGS: Homogeneous activity is present within the hepatic parenchyma. Activity is present in the gallbladder by 10 minutes. Activity is present in the small bowel by 30 minutes. The gallbladder ejection fraction is calculated to be 95% The patient did not report pain or other symptoms during CCK infusion. IMPRESSION: Unremarkable hepatobiliary scan and gallbladder ejection fraction. No evidence of common or cystic duct obstruction with normal gallbladder ejection fraction
== END ==
PROVIDERS: PCP Pediatrics; Visit Provider Internal Medicine Adolescent Medicine
DX: R10.11 Right upper quadrant pain (principal)
CPT/HCPCS: 78227; A9537; J2805

== ENCOUNTER → 2019-08-05 10:36 | Outpatient (CLI) | payer MEDICAID, SELFPAY ==
[2019-08-05 13:35] LABS: HCG Qualitative, Serum Negative (Negative)
== END ==
PROVIDERS: Visit Provider Surgery
DX: R10.9 Unspecified abdominal pain (principal)
CPT/HCPCS: 36415; 84703

== ENCOUNTER → 2020-04-30 17:08 | Outpatient (CLI) | payer BC, SELFPAY ==
[2020-04-30 17:27] LABS: Basophils # 0.1 K/mm3 (0-0.2); Basophils % 0.5 % (0.1-2.0); Eosinophils # 0.2 K/mm3 (0.0-0.4); Eosinophils % 1.5 % (0.1-12.0); Hemoglobin 13.9 g/dL (12.2-16.2); Lymphocytes # 2.1 K/mm3 (0.7-4.5); Lymphocytes % 16.4 % (10-50); Mean Corpuscular HGB Conc 34.7 g/dL (31.8-35.4); Mean Corpuscular Hemoglobin 33.8 pg (27.0-31.2); Mean Corpuscular Volume 97.3 fl (81-99); Mean Platelet Volume 7.5 fl (7.4-10.4); Monocytes # 0.5 K/mm3 (0.1-1.0); Monocytes % 3.4 % (1.7-9.3); Neutrophils # 10.1 K/mm3 (1.8-7.8); Neutrophils % 78.1 % (37.0-80.0); Platelet Count 312 K/mm3 (142-424); Red Blood Count 4.11 M/mm3 (4.20-5.40); Red Cell Distribution Width 13.3 % (11.5-17.5)
[2020-04-30 17:28] LABS: Urine Pregnancy, HCG Qual. Negative (Negative)
[2020-04-30 18:24] LABS: Chloride 106 mmol/L (98-107); Potassium 3.8 mmoL/L (3.5-5.1); Sodium 138 mmol/L (136-145)
[2020-04-30 18:27] LABS: Anion Gap 11.8 mEq/L (5-15); Blood Urea Nitrogen 7 mg/dl (7-17); Calcium 9.5 mg/dl (8.4-10.2); Carbon Dioxide 24 mmol/L (22.0-30.0); Estimated Glomerular Filt Rate 120 ml/min (>60); GFR (African American) 145 ML/MIN (>60); Glucose 88 mg/dl (74-100)
== END ==
PROVIDERS: Visit Provider Internal Medicine Adolescent Medicine
DX: R10.30 Lower abdominal pain, unspecified (principal)
CPT/HCPCS: 36415; 80048; 81025; 85025

== ENCOUNTER 2020-12-18 12:07 | Emergency (ER) | payer SELFPAY ==
[2020-12-18 12:10] VITALS: BP 105/60; PULSE 86; RESP 20; TEMP 36.6; O2SAT 99; BMI 26.9
--- NOTE | 2020-12-18 13:07 | HMH.EDUTC ---
[facility] [place] Clinical Impression: Strep throat Disposition: Home, Self-Care Condition on Discharge: Good Instructions: DI for Strep Throat Additional Instructions: Start antibiotics today be sure to take it as ordered with the full length of time although you should start feeling better in 24-48 hours. Change toothbrush and toothpaste 24-48 hours after starting antibiotics Tylenol or Motrin as needed for fever or pain Encourage fluids, water, Gatorade, Powerade, try cold fluids, popsicles, ice cream will make it feel better You are contagious for 24 hours. Avoid kissing anyone, no eating or drinking after anyone. You are contagious. Follow-up the ER for new or worsening symptoms or no noticeable improvement over the next 24-48 hours. Follow-up with PCP this week. Prescriptions: Azithromycin [Zithromax 250mg tab] 250 mg PO DIRECTED #6 tab Transmission Status: Pending to [id number] Referrals: Amado Reyna MD [Primary Care Provider] - Time of Disposition: 13:19 Medical Decision Making - Tariq Inquiry Pt receiving controlled substance: No Vital Signs: 12/18/20 12:10 Temperature 97.9 F Temperature Source Oral Pulse Rate [Right Brachial] 86 Respiratory Rate 20 Blood Pressure [Right Arm] 105/60 L Blood Pressure Mean [Right Arm] 75 Blood Pressure Source [Right Arm] Automatic Cuff Blood Pressure Position [Right Arm] Sitting 02 Sat by Pulse Oximetry 99 Oxygen Delivery Method Room Air [facility] [place] - General Chief complaint: Urgent [facility] Stated complaint: LIM;Joint Pain;Aching all over Time Seen by Provider: 12/18/20 13:07 Mode of Arrival: Ambulatory Source of Information: Patient Limitations: No Limitations Description of Symptoms (Recalled from Triage Doc. by RN): PATIENT C/O HEADACHE AND BODY ACHES SINCE SUNDAY NIGHT HEENT Symptoms (Recalled from RN notes): No Resp Symptoms (Recalled from RN notes): No Skin Symptoms (Recalled from RN notes): No MS Symptoms (Recalled from RN notes): No Functional Status (Recalled from RN notes): WNL - History of Present Illness Provider Complaint: 25 yr old female presnets for sore throat,lim, body aches and fever since . pt states she was feeling dizzy with a lim on but that has improved. - Related Data Previous Rx's Medication Instructions Recorded Azithromycin [Zithromax 250mg 250 mg PO DIRECTED #6 tab 12/18/20 tab] Allergies Allergy/AdvReac Type Severity Reaction Status Date / Time No Known Allergies Allergy Verified 06/28/20 10:11 - Worker's Comp Is this a Worker's Comp case?: No H History - Hepatitis A Screen Drug use history?: No High risk sexual behaviors?: No History of sexually transmitted infection?: No Currently employed?: No Childcare worker?: No Do you have indoor plumbing?: Yes Do you have electricity?: Yes Attestation statement:: This patient has been screened for Hepatitis A risk factors. I have reviewed the patient's past medical history: Yes Medical History: Reports:: Depression Denies:: Cancer, Diabetes Mellitus Type 1, Diabetes Mellitus Type 2, Internal Pacemaker, Lung Disease, MRSA, Seizures Other Medical History: Reports: Other. Denies: Blood Transfusion Reaction Other Surgeries: Yes: No Previous Surgery, EGD, Tubal Ligation, Other. No: Pacemaker Amputation: No Fractures: No Comment: wisdom teeth - Social History Smoking Status: Current every day smoker Tobacco Type: cigarettes # Packs/Day (cigarettes): 1 #Yrs smoked (if former smoker): 1 Alcohol Intake: never Substance Use Type: denies use Occupational Status: other Housing: house Household Members: spouse, children - Psychiatric History Pschychiatric History:: Reports:: Depression Family Hx:: Diabetes, Hypertension Comment: Twins ROS Obtained: Yes Systems reviewed as appropriate & no additional complaints - Constitutional Constitutional: Reports system reviewed and no additional complaints, excep
[2020-12-18 13:20] VITALS: BP 105/60; PULSE 86; RESP 20; TEMP 36.6; O2SAT 99
[2020-12-18 15:02] LABS: UTC Strep Screen (Rapid) Negative (Negative)
== END 2020-12-18 13:27 | disposition home or self-care (01) ==
PROVIDERS: Emergency Provider Nurse Practitioner Family; PCP Internal Medicine Adolescent Medicine
DX: J02.0 Streptococcal pharyngitis (principal); F17.210 Nicotine dependence, cigarettes, uncomplicated
CPT/HCPCS: 87880; 99202; G0463

== ENCOUNTER 2021-01-08 15:42 | Emergency (ER) | payer OTHER, SELFPAY ==
[2021-01-08 15:45] VITALS: BP 139/77; PULSE 81; RESP 19; TEMP 36.8; O2SAT 99; BMI 26.5
--- NOTE | 2021-01-08 16:06 | HMH.EDUTC ---
[facility] [place]: [place] Disposition: Home, Self-Care Condition on Discharge: Good Instructions: DI for Hives, DI for Rash, Methylprednisolone Additional Instructions: Look around and make sure that nothing has changed like soap, shampoo, laundry detergent ETC that you may be having a reaction too Start Medrol dose pack tomorrow Over the counter Benadryl may help with itching and rash Return if needed Straight to ER if any life threatening symptoms Prescriptions: methylPREDNISolone [Medrol 4mg tab] 4 mg PO DIRECTED #21 tab Transmission Status: Received by [id number] Referrals: Amado Reyna MD [Primary Care Provider] - As needed Time of Disposition: 16:19 Medical Decision Making - Tariq Inquiry Pt receiving controlled substance: No Tariq was queried for this patient: No Vital Signs: 01/08/21 15:45 Temperature 98.2 F Temperature Source Oral Pulse Rate [Right Brachial] 81 Respiratory Rate 19 Blood Pressure [Right Arm] 139/77 Blood Pressure Mean [Right Arm] 97 Blood Pressure Source [Right Arm] Automatic Cuff Blood Pressure Position [Right Arm] Sitting 02 Sat by Pulse Oximetry 99 Oxygen Delivery Method Room Air - Lab Data Lab results reviewed: Yes: I reviewed the patient's lab results. Orders (Tests/Meds): ED MEDICATIONS Discontinued Medications Generic Name Dose Route Start Last Admin Trade Name Andrew PRN Reason Stop Dose Admin Methylprednisolone Sodium Succinate 125 mg 01/08/21 16:16 01/08/21 16:20 Methylprednisolone Sod Succ 125mg Vial IM 01/08/21 16:17 125 mg ONCE ONE Administration Medical Decision Narrative: Reports tubal Rash improved patient dcd home [facility] [place] - General Stated complaint: rash Time Seen by Provider: 01/08/21 16:06 Mode of Arrival: Ambulatory Source of Information: Patient Limitations: No Limitations Description of Symptoms (Recalled from Triage Doc. by RN): PATIENT C/O RASH ALL OVER SINCE APPROX 1400 TODAY HEENT Symptoms (Recalled from RN notes): No Resp Symptoms (Recalled from RN notes): No Skin Symptoms (Recalled from RN notes): Yes MS Symptoms (Recalled from RN notes): No Functional Status (Recalled from RN notes): WNL - History of Present Illness Provider Complaint: Patient states that she was at work and around 130 she noticed she was having rash on her chest, shoulders and arms States that she felt warm and not sure if she was hot or had fever Denies any known allergies States that she is not sure if there is something she is allergic to but wanted to get checked because it felt itchy - Related Data Previous Rx's Medication Instructions Recorded Azithromycin [Zithromax 250mg 250 mg PO DIRECTED #6 tab 12/18/20 tab] methylPREDNISolone [Medrol 4mg 4 mg PO DIRECTED #21 tab 01/08/21 tab] Allergies Allergy/AdvReac Type Severity Reaction Status Date / Time No Known Allergies Allergy Verified 06/28/20 10:11 - Worker's Comp Is this a Worker's Comp case?: No [facility] History - Hepatitis A Screen Drug use history?: No High risk sexual behaviors?: No History of sexually transmitted infection?: No Currently employed?: No Childcare worker?: No Do you have indoor plumbing?: Yes Do you have electricity?: Yes Attestation statement:: This patient has been screened for Hepatitis A risk factors. I have reviewed the patient's past medical history: Yes Medical History: Reports:: Depression Denies:: Cancer, Diabetes Mellitus Type 1, Diabetes Mellitus Type 2, Internal Pacemaker, Lung Disease, MRSA, Seizures Other Medical History: Reports: Other. Denies: Blood Transfusion Reaction Other Surgeries: Yes: No Previous Surgery, EGD, Tubal Ligation, Other. No: Pacemaker Amputation: No Fractures: No Comment: wisdom teeth - Social History Smoking Status: Current every day smoker Tobacco Type: cigarettes # Packs/Day (cigarettes): 1 #Yrs smoked (if former smoker): 1 Alcohol Intake: never
[2021-01-08 16:48] VITALS: BP 139/77; PULSE 81; RESP 19; TEMP 36.8; O2SAT 99
[2021-01-08 16:53] LABS: UTC Strep Screen (Rapid) Negative (Negative)
== END 2021-01-08 16:50 | disposition home or self-care (01) ==
PROVIDERS: Emergency Provider Nurse Practitioner; PCP Internal Medicine Adolescent Medicine
DX: R21 Rash and other nonspecific skin eruption (principal); F17.210 Nicotine dependence, cigarettes, uncomplicated; F33.1 Major depressive disorder, recurrent, moderate
CPT/HCPCS: 87880; 96372; 99202; G0463

== ENCOUNTER → 2021-07-15 12:09 | Outpatient (CLI) | payer BC, OTHER, SELFPAY ==
[2021-07-15 13:27] LABS: Basophils % 0.5 % (0.1-2.0); Eosinophils # 0.1 K/mm3 (0.0-0.4); Eosinophils % 1.5 % (0.1-12.0); Hematocrit 39.7 % (37.0-47.0); Hemoglobin 13.3 g/dL (12.2-16.2); Lymphocytes # 2.2 K/mm3 (0.7-4.5); Lymphocytes % 27.4 % (10-50); Mean Corpuscular HGB Conc 33.4 g/dL (31.8-35.4); Mean Corpuscular Hemoglobin 32.7 pg (27.0-31.2); Mean Corpuscular Volume 97.8 fl (81-99); Mean Platelet Volume 8.4 fl (7.4-10.4); Monocytes # 0.3 K/mm3 (0.1-1.0); Monocytes % 3.6 % (1.7-9.3); Neutrophils # 5.3 K/mm3 (1.8-7.8); Neutrophils % 67.1 % (37.0-80.0); Platelet Count 366 K/mm3 (142-424); Red Blood Count 4.06 M/mm3 (4.20-5.40); White Blood Count 7.9 K/mm3 (4.8-10.8)
[2021-07-15 14:15] LABS: Alanine Aminotransferase 19 U/L (12-78); Albumin Level 4.5 g/dl (3.5-5.0); Albumin/Globulin Ratio 1.7 (1.1-1.8); Alkaline Phosphatase 61 U/L (38-126); Anion Gap 16.1 mEq/L (5-15); Aspartate Amino Transferase 25 U/L (14-36); Bilirubin,Total 0.4 mg/dl (0.2-1.3); Blood Urea Nitrogen 8 mg/dl (7-17); Calcium 9.3 mg/dl (8.4-10.2); Carbon Dioxide 26 mmol/L (22.0-30.0); Chloride 102 mmol/L (98-107); Estimated Glomerular Filt Rate 147 ml/min (>60); GFR (African American) 178 ML/MIN (>60); Globulin 2.7 g/dL (1.3-3.2); Glucose 76 mg/dl (74-100); Potassium 4.1 mmoL/L (3.5-5.1); Sodium 140 mmol/L (136-145); Total Protein,Serum 7.2 g/dl (6.3-8.2)
[2021-07-15 14:47] LABS: Thyroid Stimulating Hormone 1.01 uIU/mL (0.465-4.68)
[2021-07-15 15:06] LABS: Vitamin B12 356 pg/mL (239-931)
== END ==
PROVIDERS: Visit Provider Nurse Practitioner Family
DX: R42 Dizziness and giddiness (principal); R51.9 Headache, unspecified
CPT/HCPCS: 36415; 80053; 82607; 84443; 85025

== ENCOUNTER → 2021-08-13 09:18 | Outpatient (CLI) | payer BC, OTHER, SELFPAY ==
--- NOTE | 2021-08-13 09:25 | MR_ITS ---
PROCEDURE INFORMATION: Exam: MRA Head Without Contrast; Arteriography Exam date and time: 08/13/2021 9:25 AM Age: 26 years old Clinical indication: Patient HX: Headaches TECHNIQUE: Imaging protocol: Magnetic resonance angiography head without contrast. Exam focused on the arteries. COMPARISON: No relevant prior studies available. FINDINGS: ANTERIOR CIRCULATION: Right internal carotid artery: Intracranial segment is patent with no significant stenosis. No aneurysm. Right middle cerebral artery: No occlusion or significant stenosis. No aneurysm. Right anterior cerebral artery: No occlusion or significant stenosis. No aneurysm. Left internal carotid artery: Intracranial segment is patent with no significant stenosis. No aneurysm. Left middle cerebral artery: No occlusion or significant stenosis. No aneurysm. Left anterior cerebral artery: No occlusion or significant stenosis. No aneurysm. POSTERIOR CIRCULATION: Right vertebral artery: No occlusion or significant stenosis. No aneurysm. Left vertebral artery: No occlusion or significant stenosis. No aneurysm. Basilar artery: No occlusion or significant stenosis. No aneurysm. Right posterior cerebral artery: No occlusion or significant stenosis. No aneurysm. Left posterior cerebral artery: No occlusion or significant stenosis. No aneurysm. IMPRESSION: No stenosis or occlusion. No aneurysm.
--- NOTE | 2021-08-13 09:25 | MR_ITS ---
PROCEDURE INFORMATION: Exam: MR Head Without and With Contrast Exam date and time: 08/13/2021 9:25 AM Age: 26 years old Clinical indication: Pain; Migraine; Aura effect not specified; Does respond to medication; Severity not specified; Patient HX: PT C/O persistent headaches TECHNIQUE: Imaging protocol: MR of the head without and with intravenous contrast. Contrast material: PROHANCE; Contrast volume: 13 ml; Contrast route: IV; COMPARISON: No relevant prior studies available. FINDINGS: Brain: There is no extra-axial collection or intra-axial mass. Normal parenchymal signal is preserved. There is no diffusion restriction. There is no abnormal enhancement within the brain. Cerebral ventricles: Normal. No ventriculomegaly. Bones/joints: Unremarkable. Paranasal sinuses: Normal as visualized. No acute sinusitis. Mastoid air cells: Normal as visualized. No mastoid effusion. Orbital cavity: Unremarkable. Soft tissues: Unremarkable. IMPRESSION: No acute findings.
== END ==
PROVIDERS: PCP Internal Medicine Adolescent Medicine; Visit Provider Nurse Practitioner Family
DX: R51.9 Headache, unspecified (principal); R42 Dizziness and giddiness; Z82.49 Family history of ischemic heart disease and other diseases of the circulatory system
CPT/HCPCS: 70544; 70553; A9576

== ENCOUNTER 2022-01-11 00:46 | Emergency (ER) | payer BC, OTHER, SELFPAY ==
[2022-01-11 00:47] VITALS: BP 136/79; PULSE 118; RESP 18; TEMP 37.5; O2SAT 99; BMI 26.5
[2022-01-11 01:17] LABS: Influenza A, PCR Not Detected (NotDetected); Influenza B, PCR Not Detected (NotDetected); Microscopic, Urine URINE MICROSCOPIC (MICROSCOPIC)
[2022-01-11 01:20] LABS: Appearance,Urine CLEAR (Clear); Basophils # 0.1 K/mm3 (0-0.2); Basophils % 1.1 % (0.1-2.0); Bilirubin,Urine Negative (Negative); Blood, Urine 1+ (Negative); Color,Urine YELLOW (Yellow); Eosinophils # 0.1 K/mm3 (0.0-0.4); Eosinophils % 1.4 % (0.1-12.0); Glucose,Urine (UA) Negative (Negative); Hematocrit 41.4 % (37.0-47.0); Hemoglobin 13.5 g/dL (12.2-16.2); Ketones,Urine Negative (Negative); Leukocyte Esterase,Urine Negative (Negative); Lymphocytes % 20.9 % (10-50); Mean Corpuscular HGB Conc 32.6 g/dL (31.8-35.4); Mean Corpuscular Hemoglobin 31.6 pg (27.0-31.2); Mean Corpuscular Volume 97.1 fl (81-99); Mean Platelet Volume 7.9 fl (7.4-10.4); Monocytes # 0.4 K/mm3 (0.1-1.0); Monocytes % 8.6 % (1.7-9.3); Neutrophils # 3.2 K/mm3 (1.8-7.8); Nitrate,Urine Negative (Negative); Platelet Count 342 K/mm3 (142-424); Protein,Urine Negative (Negative); Red Blood Count 4.26 M/mm3 (4.20-5.40); Red Cell Distribution Width 13.2 % (11.5-17.5); Specific Gravity, Urine >= 1.030 (1.005-1.030); Urobilinogen,Urine 0.2 EU/dl (0.2); White Blood Count 4.7 K/mm3 (4.8-10.8)
[2022-01-11 01:28] LABS: Alanine Aminotransferase 21 U/L (12-78); Albumin Level 4.8 g/dl (3.5-5.0); Albumin/Globulin Ratio 1.6 (1.1-1.8); Alkaline Phosphatase 69 U/L (38-126); Anion Gap 14.3 mEq/L (5-15); Aspartate Amino Transferase 26 U/L (14-36); Bilirubin,Total 0.3 mg/dl (0.2-1.3); Blood Urea Nitrogen 6 mg/dl (7-17); Calcium 8.8 mg/dl (8.4-10.2); Carbon Dioxide 27 mmol/L (22.0-30.0); Chloride 102 mmol/L (98-107); Creatinine Clearance Estimated 150 mL/min (50-200); Estimated Glomerular Filt Rate 119 ml/min (>60); GFR (African American) 144 ML/MIN (>60); Glucose 87 mg/dl (74-100); Potassium 3.3 mmoL/L (3.5-5.1); Sodium 140 mmol/L (136-145); Total Protein,Serum 7.8 g/dl (6.3-8.2)
[2022-01-11 01:33] LABS: C-Reactive Protein 2.9 mg/L (0-4); HCG Qualitative, Serum Negative (Negative)
[2022-01-11 01:36] LABS: Bacteria,Urine Trace /lpf; WBC,Urine Occasional #/hpf (0-3)
[2022-01-11 01:40] LABS: Coronavirus 19, PCR Detected (NotDetected)
--- NOTE | 2022-01-11 01:41 | XR_ITS ---
PROCEDURE INFORMATION: Exam: XR Chest Exam date and time: 01/11/2022 1:41 AM Age: 26 years old Clinical indication: Condition or disease; Lung condition and disease; Pneumonia; Other: Covid; Cough; Additional info: Covid positive; Cough TECHNIQUE: Imaging protocol: XR of the chest. Views: 2 views. COMPARISON: ABDPELW CT abdomen pelvis w con 03/20/2018 1:26 AM FINDINGS: Lungs: Unremarkable. No consolidation. Pleural spaces: Unremarkable. No pleural effusion. No pneumothorax. Heart/Mediastinum: Unremarkable. No cardiomegaly. Bones/joints: Mild dextroconvex midthoracic scoliosis which may be positional in nature. Otherwise unremarkable. IMPRESSION: No acute findings.
[2022-01-11 01:47] LABS: Procalcitonin 0.057 ng/mL (0.0-2.0)
[2022-01-11 02:10] LABS: Erythrocyte Sedimentation Rate 24 mm/hr (0-20)
--- NOTE | 2022-01-11 03:19 | HMH.EDURI ---
ED Disposition Clinical Impression: COVID-19 Disposition: Home, Self-Care Condition on Discharge: Good Instructions: DI for COVID-19 (Suspected or Confirmed ) Additional Instructions: use meds and call pcp for follow up Prescriptions: dexAMETHasone [Decadron] 6 mg PO DAILY #6 tab Transmission Status: Pending to [id number] Referrals: Amado Reyna MD [Primary Care Provider] - - Critical Care Critical Care Time: No Attestation: On 01/11/22, the high probability of a clinically significant, sudden or life threatening deterioration of the following system(s) required my full and direct attention, intervention and personal management. The time I documented below is in addition to time spent performing reported procedures but includes the following listed in this critical care notation. Medical Decision Making - Medical Records Medical records reviewed: Yes: I reviewed the patient's medical records. - Tariq Inquiry Pt receiving controlled substance: No Vital Signs: 01/11/22 00:47 Temperature 99.5 F Temperature Source Oral Pulse Rate [Left Radial] 118 H Respiratory Rate 18 Blood Pressure [Right Arm] 136/79 Blood Pressure Mean [Right Arm] 98 Blood Pressure Source [Right Arm] Automatic Cuff Blood Pressure Position [Right Arm] Sitting 02 Sat by Pulse Oximetry 99 Oxygen Delivery Method Room Air - Lab Data Lab results reviewed: Yes: I reviewed the patient's lab results. Lab Results 01/11/22 01:04: Urine Color Yellow, Urine Appearance Clear, Urine pH 6.0, Ur Specific Alfred >= 1.030, Urine Protein Negative, Urine Glucose (UA) Negative, Urine Ketones Negative, Urine Blood 1+, Urine Nitrate Negative, Urine Bilirubin Negative, Urine Urobilinogen 0.2, Ur Leukocyte Esterase Negative, Urine RBC 3-5, Urine WBC Occasional, Ur Squamous Epith Cells 3-5, Urine Bacteria Trace 01/11/22 01:04: Sodium 140, Potassium 3.3 L, Chloride 102, Carbon Dioxide 27, Anion Gap 14.3, BUN 6 L, Creatinine 0.60, Estimated Creat Clear 150, Estimated GFR 119, Est GFR ( Amer) 144, Glucose 87, Calcium 8.8, Total Bilirubin 0.3, AST 26, ALT 21, Alkaline Phosphatase 69, C-Reactive Protein 2.9, Total Protein 7.8, Albumin 4.8, Globulin 3.0, Albumin/Globulin Ratio 1.6 01/11/22 01:04: Serum HCG, Qual Negative 01/11/22 01:04: SARS-CoV-2 (PCR) Detected A, Influenza A Untype (PCR) Not detected, Influenza Type B (PCR) Not detected 01/11/22 01:04: WBC 4.7 L, RBC 4.26, Hgb 13.5, Hct 41.4, MCV 97.1, MCH 31.6 H, MCHC 32.6, RDW 13.2, Plt Count 342, MPV 7.9, Neut % (Auto) 68.0, Lymph % (Auto) 20.9, Mcleod % (Auto) 8.6, Eos % (Auto) 1.4, Baso % (Auto) 1.1, Neut # (Auto) 3.2, Lymph # (Auto) 1.0, Mcleod # (Auto) 0.4, Eos # (Auto) 0.1, Baso # (Auto) 0.1, ESR 24 H 01/11/22 01:04: Procalcitonin 0.057 Result diagrams: 01/11/22 01:04 01/11/22 01:04 Orders (Tests/Meds): ED MEDICATIONS Generic Name Dose Route Start Last Admin Trade Name Freq PRN Reason Stop Dose Admin Sodium Chloride 1,000 mls @ 999 mls/hr 01/11/22 01:15 01/11/22 01:20 Sod Chlor 0.9% 1000ml Bag IV 01/11/22 02:15 999 mls/hr .[id number] SEAMUS Administration Discontinued Medications Generic Name Dose Route Start Last Admin Trade Name Freq PRN Reason Stop Dose Admin Acetaminophen 1,000 mg 01/11/22 01:15 01/11/22 01:19 Acetaminophen 500mg Tab PO 01/11/22 01:16 1,000 mg ONCE ONE Administration Dexamethasone Sodium Phosphate 10 mg 01/11/22 01:41 01/11/22 01:45 Dexamethasone 4mg/Ml 5ml Mdv IV 01/11/22 01:42 10 mg ONCE ONE Administration Ibuprofen 600 mg 01/11/22 01:15 01/11/22 01:18 Ibuprofen 600 Mg Tablet PO 01/11/22 01:16 600 mg ONCE ONE Administration - Radiology Data #1 Image(s): Chest Image Reviewed: Yes I have reviewed radiologist's interpretation Preliminary Findings: Normal/NAD Medical Decision Narrative: uri sx and cough with covid-19 and stable exams URI/Sore Throat HPI - General Chief Complaint: Upper Res
[2022-01-11 03:21] VITALS: BP 115/78; PULSE 90; RESP 18; TEMP 36.9; O2SAT 99
[2022-01-11 03:40] VITALS: BP 122/73; PULSE 87; RESP 18; TEMP 37.1; O2SAT 99
== END 2022-01-11 03:42 | disposition home or self-care (01) ==
PROVIDERS: Emergency Provider Emergency Medicine; PCP Internal Medicine Adolescent Medicine
DX: U07.1 COVID-19 (principal); F17.210 Nicotine dependence, cigarettes, uncomplicated; F32.9 Major depressive disorder, single episode, unspecified
CPT/HCPCS: 71046; 80053; 81001; 84145; 84703; 85025; 85651; 86140; 96365; 96375; 99283; C9803; U0003; U0005

== ENCOUNTER → 2023-01-01 16:44 | Outpatient (CLI) | payer BC, OTHER, SELFPAY ==
--- NOTE | 2023-01-01 16:49 | XR_ITS ---
PROCEDURE INFORMATION: Exam: XR Right Hip Exam date and time: 01/01/2023 4:51 PM Age: 27 years old Clinical indication: Hip pain; Right hip; Additional info: Pain in right hip TECHNIQUE: Imaging protocol: Radiologic exam of the Right hip. Views: 2 or 3 views hip with pelvis when performed. COMPARISON: ABDPELW CT abdomen pelvis w con 03/20/2018 1:26 AM FINDINGS: Bones/joints: Unremarkable. No acute fracture. Soft tissues: Unremarkable. IMPRESSION: No acute findings.
--- NOTE | 2023-01-01 16:49 | XR_ITS ---
PROCEDURE INFORMATION: Exam: XR Lumbosacral Spine Exam date and time: 01/01/2023 4:51 PM Age: 27 years old Clinical indication: Low back pain TECHNIQUE: Imaging protocol: Radiologic exam of the lumbosacral spine. Views: 2 or 3 views. COMPARISON: CR [id number] XR lumbar spine min 4V 02/25/2019 11:47 AM FINDINGS: Bones/joints: There is stable minimal leftward curvature of the lumbar spine. No vertebral body compression or acute fracture evident. No significant degenerative/arthritic changes are seen Soft tissues: Unremarkable. IMPRESSION: No acute abnormality
--- NOTE | 2023-01-01 16:50 | XR_ITS ---
PROCEDURE INFORMATION: Exam: XR Right Knee Exam date and time: 01/01/2023 4:51 PM Age: 27 years old Clinical indication: Pain; Knee; Right; Additional info: Pain in right knee TECHNIQUE: Imaging protocol: Radiologic exam of the Right knee. Views: 3 views. COMPARISON: No relevant prior studies available. FINDINGS: Bones/joints: Normal. Soft tissues: Normal. IMPRESSION: No acute findings.
== END ==
PROVIDERS: PCP Nurse Practitioner Family; Visit Provider Nurse Practitioner Family
DX: M54.50 Low back pain, unspecified (principal); M25.551 Pain in right hip; M25.561 Pain in right knee
CPT/HCPCS: 72100; 73502; 73562

== ENCOUNTER → 2023-03-02 14:42 | Outpatient (CLI) | payer BC, OTHER, SELFPAY ==
--- NOTE | 2023-03-02 14:46 | US_ITS ---
FINAL REPORT CLINICAL HISTORY: Ovarian Pain/Pelvic Pain FINDINGS: Transvaginal sonographic images of the pelvis were obtained. The uterus measures 8.2 x 4.2 x 5.0 cm. No mass is identified. The endometrium measures 5 mm which is normal. The right ovary measures up to 3.5 cm. The left ovary measures up to 2.6 cm. There is a 1.4 cm complex mass in the right ovary, may represent a complex/hemorrhagic cyst. Small follicles are seen bilaterally. There is a small amount of pelvic free fluid, may be physiologic or reactive. IMPRESSION: Complex right ovarian mass, may represent complex/hemorrhagic cyst. Small amount of pelvic free fluid, may be physiologic or reactive. Reviewed, Interpreted and Dictated by Aly Antonio III, MD Transcribed by Sandra Yates Authenticated and [facility]
== END ==
PROVIDERS: PCP Nurse Practitioner Family; Visit Provider Nurse Practitioner Obstetrics & Gynecology
DX: R10.2 Pelvic and perineal pain (principal); N83.209 Unspecified ovarian cyst, unspecified side
CPT/HCPCS: 76830

== ENCOUNTER 2023-08-22 09:46 | Emergency (ER) | payer BC, OTHER, SELFPAY ==
[2023-08-22 10:00] VITALS: BP 135/66; PULSE 76; RESP 20; TEMP 36.8; O2SAT 98; BMI 28.8
--- NOTE | 2023-08-22 10:11 | EXP.UTC ---
Discharge Plan Disposition Patient Disposition: Home, Self-Care Condition: Good Prescriptions Prescriptions: New methylprednisolone [Medrol (Douglas)] 4 mg tablets,dose pack See Rx Instructions .Route .COMPLEX 6 Days Qty: 21 0RF Rx Instructions: taper pack; azithromycin [Zithromax Z-Douglas] 250 mg tablet See Rx Instructions .ROUTE .COMPLEX 5 Days Qty: 6 0RF Rx Instructions: For 250 mg dose pack: take 500 mg today (day 1), then 250 mg for 4 days (days 2-5) Referrals Follow up/Referrals: Gerda Smith APRN [Primary Care Provider] - See instructions Activity Restrictions/Add. Instructions Additional Instructions/Restrictions: *Monitor Temp, Over the counter Motrin or Tylenol as directed/as needed Tylenol every 4 hours and Motrin every 6 hours (as long as your family doctor has told you that you can take it) for fever or pain. and straight to ER if unable to lower temp less than 101.0 after medication given *Warm salt water gargles may help to soothe the throat *Throat Lozenges? *Warm fluids like tea with honey may help to soothe the throat? *Sleep elevated *Humidifier/Vaporizer *Flonase 2 sprays in each nostril daily but be aware that it may take 2-3 days before you notice improvement *Bromfed may cause drowsiness. Know how it effects you (your child) before driving, caring for small child, or sending your child to school. Not other antihistamines/allergy medications while taking bromfed Your throat swab was sent for culture. Those results are typically sent to your primary care. Be sure to follow up in 2-3 days with your family doctor/primary care physician if no improvement so they can review those result and treat if necessary. If you don?t have a primary care doctor, I recommend you get one but in the mean time, you will have to return to a walk in clinic Follow up IMMEDIATELY for new or worsening symptoms or no Noticeable improvement over the next 48-72 hours. 911 for difficulty breathing or swallowing You were tested for today for Upper Respiratory Panel with COVID19 your test result should be back in the next 24 hours and be available for you to view on your [facility] My Health Portal if your COVID or Flu is positive you will need to Quarantine for 5 days Clinical Impressions Clinical Impression: Pharyngitis Qualifiers: Pharyngitis/tonsillitis etiology: unspecified etiology Qualified Code(s): J02.9 - Acute pharyngitis, unspecified Instructions Patient Instructions: Sore Throat, DI for Sinusitis Discharge ED Provider: Ashley Traore [facility] [place] HPI General Stated complaint: LIM, sore throat,body aches,nausea Mode of Arrival: Ambulatory Source of Information: Patient Limitations: No Limitations Time Seen by Provider: 08/22/23 10:11 Description of Symptoms (Recalled from Triage Doc. by RN): PATIENT C/O LOSS OF VOICE, SORE THROAT, BODY ACHES, AND HEADACHE X 2 DAYS HEENT Symptoms (Recalled from RN notes): Yes Resp Symptoms (Recalled from RN notes): No Skin Symptoms (Recalled from RN notes): No MS Symptoms (Recalled from RN notes): No Functional Status (Recalled from RN notes): WNL History of Present Illness Provider Complaint: Patient states that she hasnt been feeling well for several days States that she has been having sore throat, headache body aches, and loss her voice States that today she was still not feeling any better so she came in to get checked out Related Data Previous Rx's Medication Instructions Recorded azithromycin 250 mg tablet See Rx Instructions PO .COMPLEX 5 08/22/23 (Zithromax Z-Douglas) days #6 tabs methylprednisolone 4 mg tablets in See Rx Instructions .Route 08/22/23 a dose pack (Medrol (Douglas)) .COMPLEX 6 days #21 tabs Allergies Allergy/AdvReac Type Severity Reaction Status Date / Time No Known Allergies Allergy Verified 03/08/23 13:29 Worker's Comp Is this a Worker's Comp case?: No [facility] Disclaimer: The information
[2023-08-22 10:25] LABS: UTC Influenza A Antigen Negative (Negative); UTC Influenza B Antigen Negative (Negative); UTC Strep Screen (Rapid) Negative (Negative)
[2023-08-22 10:31] VITALS: BP 135/66; PULSE 76; RESP 20; TEMP 36.8; O2SAT 98
== END 2023-08-22 10:33 | disposition home or self-care (01) ==
PROVIDERS: Emergency Provider Nurse Practitioner; PCP Nurse Practitioner Family
DX: J02.9 Acute pharyngitis, unspecified; Z87.891 Personal history of nicotine dependence
CPT/HCPCS: 87804; 87880; 99212; 99214; G0463

== ENCOUNTER → 2023-08-23 15:52 | Outpatient (CLI) | payer BC, OTHER, SELFPAY ==
[2023-08-23 17:43] LABS: Basophils % 0.2 % (0.1-2.0); Eosinophils % 0.1 % (0.1-12.0); Hematocrit 38.3 % (37.0-47.0); Hemoglobin 12.7 g/dL (12.2-16.2); Lymphocytes # 1.7 K/mm3 (0.7-4.5); Lymphocytes % 13.7 % (10-50); Mean Corpuscular HGB Conc 33.2 g/dL (31.8-35.4); Mean Corpuscular Hemoglobin 31.5 pg (27.0-31.2); Mean Corpuscular Volume 94.8 fl (81-99); Mean Platelet Volume 7.9 fl (7.4-10.4); Monocytes # 0.4 K/mm3 (0.1-1.0); Monocytes % 2.9 % (1.7-9.3); Neutrophils # 10.2 K/mm3 (1.8-7.8); Neutrophils % 83.1 % (37.0-80.0); Platelet Count 373 K/mm3 (142-424); Red Blood Count 4.04 M/mm3 (4.20-5.40); Red Cell Distribution Width 13.4 % (11.5-17.5); White Blood Count 12.3 K/mm3 (4.8-10.8)
[2023-08-23 17:51] LABS: Alanine Aminotransferase 18 U/L (12-78); Albumin Level 4.6 g/dl (3.5-5.0); Albumin/Globulin Ratio 1.6 (1.1-1.8); Alkaline Phosphatase 67 U/L (38-126); Aspartate Amino Transferase 20 U/L (14-36); Bilirubin,Total 0.2 mg/dl (0.2-1.3); Blood Urea Nitrogen 8 mg/dl (7-17); Calcium 9.1 mg/dl (8.4-10.2); Carbon Dioxide 27 mmol/L (22.0-30.0); Chloride 105 mmol/L (98-107); Estimated Glomerular Filt Rate 145 ml/min (>60); GFR (African American) 175 ML/MIN (>60); Globulin 2.9 g/dL (1.3-3.2); Glucose 93 mg/dl (74-100); Sodium 141 mmol/L (136-145); Total Protein,Serum 7.5 g/dl (6.3-8.2)
[2023-08-23 18:08] LABS: HCG,Quantitative < 2 mIU/ml (0-5.42)
== END ==
PROVIDERS: PCP Nurse Practitioner Family; Visit Provider Nurse Practitioner Obstetrics & Gynecology
DX: Z01.812 Encounter for preprocedural laboratory examination (principal); R10.2 Pelvic and perineal pain
CPT/HCPCS: 36415; 80053; 84702; 85025

== ENCOUNTER 2023-08-30 07:07 | Day surgery (SDC) | payer BC, OTHER, SELFPAY ==
[2023-08-29 11:23] VITALS: BMI 27.4
[2023-08-30] VITALS (10 sets, daily range): BP systolic 115–141; BP diastolic 64–89; PULSE 70–100; RESP 12–20; TEMP 35.6–37.2; O2SAT 94–100
--- NOTE | 2023-08-30 08:25 | EXP.ANES.CKL ---
[facility] Disclaimer: The information contained in this section may have been updated after the patient was seen, as this information can be updated by other users. Medical History No significant past medical history Surgical History Hx of tubal ligation Hx of wisdom tooth extraction Family History Other Cancer Social History Smoking Status: Former smoker tobacco type: cigarettes packs per day: 1 second hand exposure: No alcohol intake: never substance use type: denies use current occupational status: employed and other Travel in the last 8 weeks: None household members: spouse and children housing: house current occupation: [employer], on maternity leave current occupational exposures/hazards: No caffeine: No [facility] Anesthesia Checklist Structural Data Admitted From: Home Planned Operative Procedure/s: d/c hyst Consent for Planned Operative Procedure(s) Verified: Yes NPO Status Verified Time NPO: 00:00 Additional verifications Anesthesia Reactions: No Hx Blood Transfusions: No Blood Transfusion Reaction: No Airway Assessment Mallampati Score:: Class I C-Spine Mobility Assessed: Yes TMJ Mobility Assessed: Yes Dentition: Good Dentition Neurological Assessment Level of Consciousness: Awake, Alert and Appropriate Anesthesia Plan Anesthesia Risk discussed: Yes Anesthesia Plan: Verified ASA Class: I Anesthesia Type: General
--- NOTE | 2023-08-30 09:10 | EXP.OP.NOTE ---
Date of procedure: 08/30/23 Pre-op Diagnosis:: Menorrhagia Post-op Diagnosis:: Menorrhagia Procedure performed:: Hysteroscopy, dilation and curettage, NovaSure ablation Surgeon:: Walter Santos MD STUDENT RECRUITER:: Other (Collette Veras) Anesthesia: LMA Estimated blood loss (mL): 50 Clinical Note:: She is a 28-year-old lady who complains of extremely heavy periods. She has had a bilateral salpingectomy and was offered NovaSure ablation. The risks and benefits of surgery were discussed with the patient prior to surgery. Operative findings:: She had an anteverted somewhat bulky uterus that sounded to 9 cm. The width of the uterus was 4.6 cm and the length was 6 cm. Operative note:: She was taken to the operating room where LMA anesthesia was found be adequate. She was prepped and draped in the normal sterile fashion in the lithotomy position. A weighted speculum was placed in the vagina and the anterior lip of the cervix was grasped with a tenaculum. The cervix was then dilated to approximately 6 mm. I then inserted a hysteroscope into the uterine cavity and the findings were as previously dictated. I then performed a gentle curettage with a medium curette. I then sounded the uterus and determine the length of the uterus. I then inserted the NovaSure device and determine the width of the endometrial cavity. The width was 4.9 cm and the length was 6 cm. This was placed into the NovaSure device. About half-way through the program the program failed as a result of a vacuum failure. I attempted to remedy the situation and this still did not work so I obtained a new device. I then ran the device through its program. I further inspected the endometrial cavity and was found to be completely charred. I then injected 30 cc of 0.5% ropivacaine at the 3:00, 5:00, 7:00, and 9:00 positions of the cervix. She tolerated procedure well and was taken to the recovery room in excellent condition. All sponge and instrument counts were correct. The estimated blood loss was less than 50 cc. Condition: stable Disposition: PACU Specimens:: Endometrial curettings Complications:: None
--- NOTE | 2023-08-30 11:28 | P.PNANES_ITS ---
[facility] Anesthesia Record Part I Anesthesia Record I Intake, IV Amount: 500 Hydration: Adequate Estimated blood loss (mL): 50 Urine output (mL): 300 Blood Products used (#): none Blood Pressure: 115/76 SaO2: 94 Pulse Rate: 71 Airway Patency: Patent Respiratory Rate: 12 Temperature: 96.0 F Patient is:: Awake, Drowsy and Stable Stable to PACU at:: 09:09
--- NOTE | 2023-08-30 14:25 | SUR.OPER ---
Novasure ablation total time 1 minute 47 seconds
--- NOTE | 2023-08-31 10:22 | EXP.ANES.II ---
[facility] Anesthesia Record Part II Anesthesia Record Part II Discharge Time: 09:34 Destination: Surgical Day Care (OP Surgery) PACU nurse assessment reviewed?: Yes Patient Condition:: Good Anesthesia Complications:: None Swallowing reflex intact?: Yes Airway Patency: Patent Cyanosis?: No Blood Pressure: 129/76 SaO2: 98 Respiratory Rate: 16 Pulse Rate: 88 Temperature: 97.4 F Mental Status: Alert & Oriented Pain level:: 1 Nausea and/or vomitting:: None Intake, IV Amount: 0 Hydration: Adequate
[2023-08-31 10:23] VITALS: BP 129/76; PULSE 88; RESP 16; TEMP 36.3; O2SAT 98
== END 2023-08-30 10:19 | disposition home or self-care (01) ==
PROVIDERS: PCP Nurse Practitioner Family; Visit Provider Nurse Practitioner Obstetrics & Gynecology
PROC: 0U5B8ZZ Destruction of Endometrium, Via Natural or Artificial Opening Endoscopic (ICD-10-PCS; CPT 58563; principal; 2023-08-30 08:45)
DX: N92.0 Excessive and frequent menstruation with regular cycle (principal)
CPT/HCPCS: 58563; 96374; J2405

== ENCOUNTER 2024-05-15 07:22 | Outpatient (CLI) | payer BC, SELFPAY ==
--- NOTE | 2024-05-15 07:29 | US_ITS ---
FINAL REPORT CLINICAL HISTORY: PELVIC PAIN,PERINEAL PAIN COMPARISON: None FINDINGS: The gallbladder shows no wall thickening, distention or stone disease. No biliary ductal dilatation is appreciated. No fluid collections are seen. The pancreas is obscured by overlying bowel gas. The portions of the liver visualized appear unremarkable. The right kidney measures 12.1 cm in length, and the left kidney measures 10.4 cm in length. No evidence of hydronephrosis or mass is seen. IMPRESSION: No abnormality of the upper abdomen identified. Reviewed, Interpreted and Dictated by Aparna Bender MD Transcribed by Deepti Ortiz Authenticated and [facility]
--- NOTE | 2024-05-15 07:29 | US_ITS ---
PROCEDURE: US TRANSVAGINAL CLINICAL INDICATION: PELVIC PAIN,PERINEAL PAIN COMPARISON: US US TRANSVAGINAL from 03/02/2023 FINDINGS: Transvaginal sonographic images of the pelvis were obtained. UTERUS: 8.0cm x 4.7 cmx 3.5 cm anteverted with a combined endometrial thickness of 9.8mm. There is a posterior fibroid measuring 1.1 cm x 1.1 cm x 1.4 cm. There are post ablation changes within the uterus. There is a 4.4 mm nabothian cyst in the cervix. LEFT OVARY: 3.0cmx2.0cmx1.6cm with a volume of 5ml. There is a 0.9 cm resolving hemorrhagic follicle. Smaller than previous exam 1 year ago. Could represent a small endometrioma. There are a few small calcifications within the left ovary that could be old endometriosis. There are multiple small peripheral follicles. RIGHT OVARY: 4.2cmx 2.2cmx2.2cm with a volume of 11ml. There is a corpus luteum in the right ovary measuring 2.1 cm. There are multiple small peripheral follicles. Both ovaries are seen and appear normal. Doppler flow to both ovaries are seen. There is a small amount fluid in the cul-de-sac. IMPRESSION: 1. Anteverted uterus normal in shape and size. There are post ablation changes. There is a posterior fibroid measuring up to 1.4 cm in size. 2. Both ovaries are seen and appear normal. They have a polycystic appearance. There appears to be a 2.1 cm corpus luteum on the right ovary. Calcifications seen in the left ovary that may be old endometriosis. Previous described hemorrhagic cyst on the left ovary is smaller in size but may represent a small endometrioma. 3. There is a small amount of fluid in the cul-de-sac. Dictated by: Walter Santos MD 05/15/2024 16:33 Walter Santos MD in OV 05/15/2024 16:33
== END 2024-05-15 23:59 | disposition home or self-care (01) ==
LOC: RAD 07:22
PROVIDERS: PCP Nurse Practitioner Family; Visit Provider Nurse Practitioner Family
DX: R10.2 Pelvic and perineal pain (principal)
CPT/HCPCS: 76700; 76830

== ENCOUNTER 2025-05-31 14:08 | Emergency (ER) | payer BC, SELFPAY ==
--- NOTE | 2025-05-31 14:13 | ED_ITS ---
Discharge Plan Disposition Patient Disposition: Home, Self-Care Condition: Good Prescriptions Prescriptions: No Action No Known Home Medications Referrals Follow up/Referrals: Gerda Smith APRN [Primary Care Provider, Medical] - See instructions Activity Restrictions/Add. Instructions Additional Instructions/Restrictions: As we discussed I am sending a muscle relaxer into your pharmacy. Please be careful about driving within 8 hours of taking it. Also recommend taking 1000 mg alternating every 4 hours with up to 800 mg of ibuprofen taken with food [id number] to help control pain and swelling. If you have any continued new or worsening signs or symptoms please follow-up with your PCP return to the ER as needed. Clinical Impressions Clinical Impression: Acute back pain Instructions Patient Instructions: DI for Low Back Pain Print Language Print Language: Wolof Discharge ED Provider: João Abarca General Adult HPI <ANJANA Kay - Last Filed: 05/31/25 17:08> General Chief complaint: Back Pain/Injury Stated complaint: Mid and Lower Back Pain; Time Seen by Provider: 05/31/25 14:13 History of Present Illness HPI narrative: Patient presents for evaluation of back pain. Patient states that she woke up today with low back pain initially in the lumbar area. She states as the day is gone on she has began hurting in her mid back. She denies any trauma or injury. She denies chest pain fever chills hemoptysis hematochezia melena nausea vomit diarrhea. Patient works at [employer] but has a sitting job. She has never had a back injury previously that she knows. She also reports that she occasionally has bilateral lower extremity burning numbness that comes and goes. Related Data Home Medications ?Medication ?Instructions ?Recorded ?Confirmed No Known Home Medications 09/18/2305/19 Allergies Allergy/AdvReac Type Severity Reaction Status Date / Time No Known Allergies Allergy Verified 05/28/24 15:50 PFSH <ANJANA Kay - Last Filed: 05/31/25 17:08> [facility] Disclaimer: The information contained in this section may have been updated after the patient was seen, as this information can be updated by other users. Medical History Pelvic pain Surgical History History of endometrial ablation History of D&C History of hysteroscopy Hx of wisdom tooth extraction Hx of tubal ligation Family History Other Cancer Social History Smoking Status: Never smoker second hand exposure: No alcohol intake: never substance use type: denies use current occupational status: employed and other Travel in the last 8 weeks?: None household members: spouse and children housing: house current occupation: [employer], on maternity leave current occupational exposures/hazards: No caffeine: No Other Medical History Have you received the Flu Vaccine for this season: No Have you received the Pneumonia Vaccine: No <ANJANA Kay - Last Filed: 05/31/25 17:08> ROS Obtained: Yes Systems reviewed as appropriate & no additional complaints except as documented Physical Exam <ANJANA Kay - Last Filed: 05/31/25 17:08> General General appearance: alert Respiratory Respiratory exam: Present normal lung sounds bilaterally Cardiovascular Cardiovascular exam: Present regular rate Neurological Exam Neurological exam: Present alert and oriented X3 Medical Decision Making <ANJANA Kay - Last Filed: 05/31/25 17:08> Medical Records Medical records reviewed: Yes I reviewed the patient's medical records. Screening: Per USPSTF and CDC recommendations, given the prevalence of disease in our region, it is our hospital?s policy to screen for HIV and viral Hepatitis for all patients aged 18 and over and those with ongoing risk factors. Tariq Inquiry Pt receiving controlled substance: No Vital Signs: 05/31/25 14:16 05/31/25 14:16 05/31/25 14:30 Temperature 98.4 F 98.4 F Temperature Source Oral Pulse Rate 87 78 Pulse Rate [Right Radial] 87 Respiratory Rate 16 16 18 Blood Pressure 114/57 L 100/52 L Blood Pressure [Right Arm] 114/57 L Blood Pressure Mean 68 Blood Pressure Mean [Right Arm] 76 02 Sat by Pulse Oximetry 100 100 100 Oxygen Delivery Method Room Air Room Air 05/31/25 15:30 05/31/25 16:00 05/31/25 16:30 Temperature Temperature Source Pulse Rate 66 63 68 Pulse Rate [Right Radial] Respiratory Rate 18 18 16 Blood Pressure 109/69 L 103/64 L 95/57 L Blood Pressure [Right Arm] Blood Pressure Mean 80 74 65 Blood Pressure Mean [Right Arm] 02 Sat by Pulse Oximetry 100 100 100 Oxygen Delivery Method 05/31/25 18:19 Temperature 98.2 F Temperature Source Pulse Rate 78 Pulse Rate [Right Radial] Respiratory Rate 20 Blood Pressure 130/78 Blood Pressure [Right Arm] Blood Pressure Mean Blood Pressure Mean [Right Arm] 02 Sat by Pulse Oximetry Oxygen Delivery Method Room Air Lab Data Lab results reviewed: Yes I reviewed the patient's lab results. Lab Results 05/31/25 15:20: WBC 7.8, RBC 3.95 L, Hgb 12.7, Hct 37.7, MCV 95.4, MCH 32.2 H, MCHC 33.7, RDW 12.4, Plt Count 296, MPV 9.8, Neut % (Auto) 58.6, Lymph % (Auto) 31.1, Young % (Auto) 6.2, Eos % (Auto) 2.8, Baso % (Auto) 1.0, Neut # (Auto) 4.6, Lymph # (Auto) 2.4, Young # (Auto) 0.5, Eos # (Auto) 0.2, Baso # (Auto) 0.1, ESR 17, Sodium 138, Potassium 4.1, Chloride 101, Carbon Dioxide 28, Anion Gap 13.1, BUN 10, Creatinine 0.70, Estimated Creat Clear 112, Estimated GFR 97, Est GFR ( Amer) 117, Glucose 85, Calcium 8.8, Total Bilirubin 0.3, AST 22, ALT 15, Alkaline Phosphatase 68, C-Reactive Protein < 0.3, Total Protein 7.1, Albumin 4.6, Globulin 2.5, Albumin/Globulin Ratio 1.8, Procalcitonin < 0.030, Serum HCG, Qual Negative 05/31/25 15:23: Urine Color Yellow, Urine Appearance Clear, Urine pH 8.0, Ur Specific [place] 1.015, Urine Protein Negative, Urine Glucose (UA) Negative, Urine Ketones Negative, Urine Blood Negative, Urine Nitrate Negative, Urine Bilirubin Negative, Urine Urobilinogen 0.2, Ur Leukocyte Esterase Negative, Urine RBC None, Urine WBC None, Ur Squamous Epith Cells Occasional, Urine Bacteria None, Urine HCG, Qual Negative 05/31/25 15:20 05/31/25 15:20 Orders (Tests/Meds): ED MEDICATIONS Discontinued Medications Generic Name Dose Route Start Last Admin Trade Name Andrew PRN Reason Stop Dose Admin Acetaminophen 1,000 mg 05/31/25 15:01 05/31/25 15:23 Acetaminophen 500mg Tab PO 05/31/25 15:02 1,000 mg ONCE ONE Administration Dexamethasone Sodium Phosphate 10 mg 05/31/25 15:01 05/31/25 15:23 Dexamethasone 4mg/Ml 5ml Mdv IV 05/31/25 15:02 10 mg ONCE ONE Administration Ketorolac Tromethamine 15 mg 05/31/25 15:01 05/31/25 15:23 Ketorolac 30mg/Ml Vial IV 05/31/25 15:02 15 mg ONCE ONE Administration Methocarbamol 500 mg 05/31/25 15:01 05/31/25 15:23 Methocarbamol 500mg Tablet PO 05/31/25 15:02 500 mg ONCE ONE Administration ORDERS Category Date Time Status CT cervical spine wo con Stat Cat Scan 05/31/25 15:[address] lumbar spine wo con Stat Cat Scan 05/31/25 15:[address] thoracic spine wo con Stat Cat Scan 05/31/25 15:01 Completed CBC w/Auto Diff [Complete Blood Count Auto Diff] Stat Lab 05/31/25 15:20 Completed CMP [Comprehensive Metabolic Panel] Stat Lab 05/31/25 15:20 Completed CRP [C-Reactive Protein] Stat Lab 05/31/25 15:20 Completed ESR [Erythrocyte Sedimentation Rate] Stat Lab 05/31/25 15:20 Completed HCG Qualitative, Serum Stat Lab 05/31/25 15:20 Completed Procalcitonin Stat Lab 05/31/25 15:20 Completed UA [Urinalysis and Microscopic] Stat Lab 05/31/25 15:23 Completed Urine , HCG Qual. Stat Lab 05/31/25 15:23 Completed Medical Decision Narrative: In summary patient is a 30-year-old female who presents to the emergency department for evaluation of atraumatic back pain. Patient is hemodynamically stable the blood pressure 114/57 heart rate 87 normal sinus rhythm on the bedside monitor breathing 16 times minute satting at 100% on room air upon arrival, afebrile at 90.4. Physical exam is remarkable for midline dorsal spine tenderness from the C-spine to the sacrum however there is no palpable bony deformities evidence of contusions abrasions deformities. Patient is neurovascularly intact in all 4 extremities and is able to ambulate in the emergency department.. Differential diagnosis includes arthralgia versus arthritis versus degenerative disc disease versus infection etc. Initial workup will be conducted with hematologic labs and CT scan without contrast of the cervical thoracic and lumbar spines. Initial interventions include Tylenol Decadron Robaxin Toradol. Initial workup reviewed by me and her hematologic labs nonactionable my informal interpretation of her imaging shows no evidence of acute bony abnormality or injury.. Upon repeat evaluation patient had significant improvement after initial intervention. Given this there is diagnostic uncertainty as to the cause of her discomfort with essentially ruled out any serious or life-threatening condition. I feel patient is safe for discharge with a prescription for muscle relaxer with close follow-up with her PCP for persistent new or worsening signs or symptoms. Patient verbalized understanding and agreement. <João Abarca MD - Last Filed: 06/01/25 09:23> Vital Signs: 05/31/25 14:16 05/31/25 14:16 05/31/25 14:30 Temperature 98.4 F 98.4 F Temperature Source Oral Pulse Rate 87 78 Pulse Rate [Right Radial] 87 Respiratory Rate 16 16 18 Blood Pressure 114/57 L 100/52 L Blood Pressure [Right Arm] 114/57 L Blood Pressure Mean 68 Blood Pressure Mean [Right Arm] 76 02 Sat by Pulse Oximetry 100 100 100 Oxygen Delivery Method Room Air Room Air 05/31/25 15:30 05/31/25 16:00 05/31/25 16:30 Temperature Temperature Source Pulse Rate 66 63 68 Pulse Rate [Right Radial] Respiratory Rate 18 18 16 Blood Pressure 109/69 L 103/64 L 95/57 L Blood Pressure [Right Arm] Blood Pressure Mean 80 74 65 Blood Pressure Mean [Right Arm] 02 Sat by Pulse Oximetry 100 100 100 Oxygen Delivery Method 05/31/25 18:19 Temperature 98.2 F Temperature Source Pulse Rate 78 Pulse Rate [Right Radial] Respiratory Rate 20 Blood Pressure 130/78 Blood Pressure [Right Arm] Blood Pressure Mean Blood Pressure Mean [Right Arm] 02 Sat by Pulse Oximetry Oxygen Delivery Method Room Air Lab Data Lab Results 05/31/25 15:20: WBC 7.8, RBC 3.95 L, Hgb 12.7, Hct 37.7, MCV 95.4, MCH 32.2 H, MCHC 33.7, RDW 12.4, Plt Count 296, MPV 9.8, Neut % (Auto) 58.6, Lymph % (Auto) 31.1, Young % (Auto) 6.2, Eos % (Auto) 2.8, Baso % (Auto) 1.0, Neut # (Auto) 4.6, Lymph # (Auto) 2.4, Young # (Auto) 0.5, Eos # (Auto) 0.2, Baso # (Auto) 0.1, ESR 17, Sodium 138, Potassium 4.1, Chloride 101, Carbon Dioxide 28, Anion Gap 13.1, BUN 10, Creatinine 0.70, Estimated Creat Clear 112, Estimated GFR 97, Est GFR ( Amer) 117, Glucose 85, Calcium 8.8, Total Bilirubin 0.3, AST 22, ALT 15, Alkaline Phosphatase 68, C-Reactive Protein < 0.3, Total Protein 7.1, Albumin 4.6, Globulin 2.5, Albumin/Globulin Ratio 1.8, Procalcitonin < 0.030, Serum HCG, Qual Negative 05/31/25 15:23: Urine Color Yellow, Urine Appearance Clear, Urine pH 8.0, Ur Specific [place] 1.015, Urine Protein Negative, Urine Glucose (UA) Negative, Urine Ketones Negative, Urine Blood Negative, Urine Nitrate Negative, Urine Bilirubin Negative, Urine Urobilinogen 0.2, Ur Leukocyte Esterase Negative, Urine RBC None, Urine WBC None, Ur Squamous Epith Cells Occasional, Urine Bacteria None, Urine HCG, Qual Negative Orders (Tests/Meds): ED MEDICATIONS Discontinued Medications Generic Name Dose Route Start Last Admin Trade Name Andrew PRN Reason Stop Dose Admin Acetaminophen 1,000 mg 05/31/25 15:01 05/31/25 15:23 Acetaminophen 500mg Tab PO 05/31/25 15:02 1,000 mg ONCE ONE Administration Dexamethasone Sodium Phosphate 10 mg 05/31/25 15:01 05/31/25 15:23 Dexamethasone 4mg/Ml 5ml Mdv IV 05/31/25 15:02 10 mg ONCE ONE Administration Ketorolac Tromethamine 15 mg 05/31/25 15:01 05/31/25 15:23 Ketorolac 30mg/Ml Vial IV 05/31/25 15:02 15 mg ONCE ONE Administration Methocarbamol 500 mg 05/31/25 15:01 05/31/25 15:23 Methocarbamol 500mg Tablet PO 05/31/25 15:02 500 mg ONCE ONE Administration ORDERS Category Date Time Status CT cervical spine wo con Stat Cat Scan 05/31/25 15:[address] lumbar spine wo con Stat Cat Scan 05/31/25 15:[address] thoracic spine wo con Stat Cat Scan 05/31/25 15:01 Completed CBC w/Auto Diff [Complete Blood Count Auto Diff] Stat Lab 05/31/25 15:20 Completed CMP [Comprehensive Metabolic Panel] Stat Lab 05/31/25 15:20 Completed CRP [C-Reactive Protein] Stat Lab 05/31/25 15:20 Completed ESR [Erythrocyte Sedimentation Rate] Stat Lab 05/31/25 15:20 Completed HCG Qualitative, Serum Stat Lab 05/31/25 15:20 Completed Procalcitonin Stat Lab 05/31/25 15:20 Completed UA [Urinalysis and Microscopic] Stat Lab 05/31/25 15:23 Completed Urine , HCG Qual. Stat Lab 05/31/25 15:23 Completed Medical Decision Narrative: In summary patient is a 30-year-old female who presents to the emergency department for evaluation of atraumatic back pain. Patient is hemodynamically stable the blood pressure 114/57 heart rate 87 normal sinus rhythm on the bedside monitor breathing 16 times minute satting at 100% on room air upon arrival, afebrile at 98.4. Physical exam is remarkable for midline dorsal spine tenderness from the C-spine to the sacrum however there is no palpable bony deformities evidence of contusions abrasions deformities. Patient is neurovascularly intact in all 4 extremities and is able to ambulate in the emergency department.. Differential diagnosis includes arthralgia versus arthritis versus degenerative disc disease versus infection etc. Initial workup will be conducted with hematologic labs and CT scan without contrast of the cervical thoracic and lumbar spines. Initial interventions include Tylenol Decadron Robaxin Toradol. Initial workup reviewed by me and her hematologic labs nonactionable my informal interpretation of her imaging shows no evidence of acute bony abnormality or injury.. Upon repeat evaluation patient had significant improvement after initial intervention. Given this there is diagnostic uncertainty as to the cause of her discomfort with essentially ruled out any serious or life-threatening condition. I feel patient is safe for discharge with a prescription for muscle relaxer with close follow-up with her PCP for persistent new or worsening signs or symptoms. Patient verbalized understanding and agreement. I was consulted by the VICKY, and we discussed the complexity of the problems being addressed. I approve the treatment and management plan for this patient's care in the emergency department, thus performing a substantive portion of the medical decision making. João Abarca MD Critical Care <ANJANA Kay - Last Filed: 05/31/25 17:08> Critical Care Time Critical Care Time: No
[2025-05-31 14:16] VITALS: BP 114/57; PULSE 87; RESP 16; TEMP 36.9; O2SAT 100; BMI 23.9
--- OUTSIDE RECORDS SUMMARY | 2025-05-31 14:24 | XMS_ITS | Data Portability ---
Author Organization [facility] Address [address] [place] [address] Care Team Providers Care Phone Banker Name Role Phone LISSETTE THOMAS Primary Care Provider [phone] Assessment Encounter Date Assessment Date Assessment LastModified by Organization Details LastModified Time 05/29/2023 05/29/2023 Pharyngitis -2 week history of sore throat, enlarged tonsil on right side, and pharyngeal erythema. -Treated by PCP with azithromycin 11 days ago with no improvement in symptoms. -prescribing cephalexin and referring to ENT for possible infected tonsillolith -instructed patient on OTC acetaminophen/i buprofen use for pain/fever control -Educated on salt water gargles, sucking on throat lozenges, hard candy or pieces of ice to help with symptoms relief [email or web address] Not available 05/29/2023 14:33:42 Plan of Treatment Reminders Order Date Submit Date Provider Last Modified By Organization Details Last Modified Time Details Appointments None recorded. Lab HbA1c (hemoglobin A1c), blood 2023 024 [facility], [address] , [facility], [place], [address], 4 08:04:15 urinalysis, dipstick 2023 024 [facility], [address] [facility], [place], [address], 14:02:25 culture, urine 2023 024 AYE [facility], [address], [place] [address], [place], [address], 4 08:04:16 lh + FSH, serum 2023 024 [facility], [address], [place], [place], [address], 4 08:04:14 test, urine 2023 024 [facility], [address] [place] [address], [address], 4 15:05:06 estradiol, serum 2023 024 [facility], [address], [address] [address], [place], [address], 4 08:04:15 progesteron e, serum 2023 024 [facility], [address], [place], [place], [address], 4 08:04:16 TSH + free T4, serum 2023 024 [facility], [address], [place] [address], [place], [address], 4 08:04:13 CMP, serum or plasma 2023 024 [facility], [address], [place] [address], [place], [address], 4 08:04:14 CBC w/ auto diff 2023 024 [facility], [address], [place], [place], [address], 4 08:04:13 rapid strep group A, throat [email or web address] [address] [place] [address], [address], 3 14:33:29 urinalysis, dipstick 2022 023 [facility], [address] [place] [address], [address], 3 15:54:13 HbA1c (hemoglobin A1c), blood 2022 023 [facility], [address] [place] [address], [address], 3 15:54:13 urinalysis, dipstick 2022 023 [facility], [address] [place] [address], [address], 3 11:28:43 culture, urine 2022 023 [facility], [address], [place] [address], [place], [address], 3 13:06:37 ESR (erythrocyt e sedimentati on rate), blood 2022 023 AYE [facility], [address], [place], [place], [address], 3 13:06:36 rf (rheumatoid factor), serum 2022 023 [facility], [address], [place], [place], [address], 3 13:06:35 C reactive protein, QN, serum or plasma 2022 023 [facility], [address], [place], [place], [address], 3 13:06:36 OSMEL (antinuclea r antibodies) screen, serum 2022 023 [facility], [address], [place] [address], [place], [address], 3 13:06:35 Referral otolaryngol ogist referral 2022 023 [email or web address] [facility], [address], [place], [address], 3 10:22:25 Procedures None recorded. Surgeries None recorded. Imaging US, pelvis, transabdomi nal + transvagina l - abdomen complete and transvagina l 2023 024 [facility] (X-[facility]), [address], [place], [address], 4 11:20:14 CT, abdomen + pelvis, w/o contrast 2023 024 [facility] (X-Ray), [address], [place], [address], 4 09:42:43 XR, lumbosacral spine, 2 or 3 view 2022 023 [facility] ([facility]), [address], [place], [address], 3 19:29:47 XR, knee, 3 view 2022 023 [facility] ([facility]), [address], [place], [address], 3 19:32:26 XR, hip, unilateral, 2 or 3 view 2022 023 [facility] ([facility]), [address], [place], [address], 3 19:36:01 Medication Orders cephalexin 500 mg capsule 2023 024 [facility], [address], [address], 4 14:07:47 cephalexin 500 mg capsule 2022 023 [facility], [address], [address], 4 13:33:40 Zithromax Z-Douglas 250 mg tablet 2022 023 [facility], [address], [address], 4 13:33:35 cephalexin 500 mg capsule 2022 023 [facility], [address], [address], 4 13:33:40 Diflucan 100 mg tablet 2022 023 [facility], [address], [address], 4 13:33:47 Patient TargetsNo targets recorded. Patient Instructions Encounter Date Encounter Id Patient Instructions Last Modified By Organization Details Last Modified Time 05/29/2023 [id number] Please consult o ur office promptly if you develop any of the following symptoms: 1. A fever of at least 101 F or 38.4 C 2. Throat pain that is severe or does not start to improve within 5 to 7 days Call for an ambulance or go to the emergency room if you: 1. Have trouble breathing 2. Cannot control your saliva (drooling) due to difficulty swallowing 3. Have swelling of the neck or tongue 4. Cannot move your neck or have trouble opening your mouth Not available 05/29/2023 14:32:49 You can give the infection to other people until you have been treated with an antibiotic for 1 to 3 days. Children with strep throat should not go back to school or day care until their fever has gone away and they have taken an antibiotic for at least 24 hours. Pain/discomfort relief: -Ibuprofen (brand names: Advil, Motrin, Nuprin) or acetaminophen (brand name: Tylenol). Children should not take aspirin. -Gargling with warm salt water ( teaspoon of salt in 1 cup [8 ounces] of warm water) -For adults and older children, sucking on throat lozenges, hard candy or pieces of ice -For younger children soft foods, cool drinks or warm liquids, popsicles Prevention and decreasing spread of Strep Throat: Hand hygiene is especially important after coughing and sneezing and before preparing foods or eating. Good respiratory etiquette involves covering your cough or sneeze. -Cover your mouth and nose with a tissue when you cough or sneeze -Put your used tissue in the waste basket -Cough or sneeze into your upper sleeve or elbow, not your hands, if you don t have a tissue -Wash your hands often with soap and water for at least 20 seconds -Use an alcohol-based hand rub if soap and water are not available -You should also wash glasses, utensils, and plates after someone who is sick uses them. These items are safe for others to use once washed. Monitor for dehydration, encourage increased fluids. If decreased fluids and decreased urine output, or patient showing other signs and symptoms of dehydration, go to ER immediately. If continued fever, no improvement, or worsening symptoms, RTC sooner or go to ER. 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 Referring Physician: Mj Pugh, Family Medicine, Encounter Date: 05/29/2023 Results Created Date Observation Date Name Description Value Unit Range Abnormal Flag Note LastModifiedBy Organization Detail LastModifiedTime 12/22/19 23 12/24/2022 RHEUM ATOID FACTO R (RF) rheumatoid factor (rf) <10.0 IU/mL <14.0 Not Available [facility]) [address] [facility], [place], [address], 12/25/2022 13:06:35 12/22/19 23 12/25/2022 OSMEL W/REF PRECIOUS IF POSIT HERNAN OSMEL direct Negati ve negati ve Not Available [facility] ([facility]) [address] [facility], [place], [address], 12/25/2022 13:06:35 12/22/19 23 12/23/2022 SEDIM ENTAT ION RATE- WESTE RGREN sedimentatio n rate-westerg dequan 10 mm/HR 0-32 Not Available [facility] ([facility]) [address] [facility], [place], [address], 12/25/2022 13:06:36 12/22/19 23 12/24/2022 C-JOSE ELIAS CTIVE PROTE IN, QUANT C-reactive protein, quant <1 mg/L 0-10 Not Available [facility] ([facility]) [address] [facility], [place], [address], 12/25/2022 13:06:36 12/22/19 23 12/24/2022 URINE CULTU RE, ROUTI NE urine culture, routine Final report Not Available [facility] ([facility]) [address] [place], [address], 12/25/2022 13:06:37 12/22/19 23 12/24/2022 URINE CULTU RE, ROUTI NE result 1 Commen t Cultu re shows less than 10,00 0 colon y formi ng units of bacte arely per iam liter of urine . This colon y count is not gener ally consi dered to be clini anders signi fican t. Not Available [facility] ([facility]) [address] [facility], [place], [address], 12/25/2022 13:06:37 12/22/19 23 12/22/2022 urina lysis , dipst ick Leukocytes Negati ve Not Available [address], [address], 12/22/2022 10:50:24 12/22/19 23 12/22/2022 urina lysis , dipst ick Nitrite negati ve Not Available [address], [address], 12/22/2022 10:50:24 12/22/19 23 12/22/2022 urina lysis , dipst ick Urobilinogen .2 Not Available [facility] [address], [address], 12/22/2022 10:50:24 12/22/19 23 12/22/2022 urina lysis , dipst ick Protein Negati ve Not Available [address], [address], 12/22/2022 10:50:24 12/22/19 23 12/22/2022 urina lysis , dipst ick pH 7.5 Not Available [address], [address], 12/22/2022 10:50:24 12/22/19 23 12/22/2022 urina lysis , dipst ick Blood Negati ve Not Available [address], [address], 12/22/2022 10:50:24 12/22/19 23 12/22/2022 urina lysis , dipst ick Specific [place] 1.020 Not Available [address], [address], 12/22/2022 10:50:24 12/22/19 23 12/22/2022 urina lysis , dipst ick Ketone Negati ve Not Available [address], [address], 12/22/2022 10:50:24 12/22/19 23 12/22/2022 urina lysis , dipst ick Bilirubin Negati ve Not Available [address], [address], 12/22/2022 10:50:24 12/22/19 23 12/22/2022 urina lysis , dipst ick Glucose Negati ve Not Available [address], [address], 12/22/2022 10:50:24 12/22/19 23 12/22/2022 urina lysis , dipst ick Appearance Clear Not Available [address], [address], 12/22/2022 10:50:24 12/22/19 23 12/22/2022 urina lysis , dipst ick Color Yellow Not Available [address], [address], 12/22/2022 10:50:24 01/12/20 23 01/12/2023 urina lysis , dipst ick Leukocytes Negati ve Not Available [address], [address], 01/12/2023 14:12:04 01/12/20 23 01/12/2023 urina lysis , dipst ick Nitrite negati ve Not Available [address], [address], 01/12/2023 14:12:04 01/12/20 23 01/12/2023 urina lysis , dipst ick Urobilinogen .2 Not Available [facility], [address], 01/12/2023 14:12:04 01/12/20 23 01/12/2023 urina lysis , dipst ick Protein Negati ve Not Available [address], [address], 01/12/2023 14:12:04 01/12/20 23 01/12/2023 urina lysis , dipst ick pH 7.0 Not Available [address], [address], 01/12/2023 14:12:04 01/12/20 23 01/12/2023 urina lysis , dipst ick Blood Negati ve Not Available [address], [address], 01/12/2023 14:12:04 01/12/20 23 01/12/2023 urina lysis , dipst ick Specific [place] 1.025 Not Available [address], [address], 01/12/2023 14:12:04 01/12/20 23 01/12/2023 urina lysis , dipst ick Ketone Negati ve Not Available [address], [address], 01/12/2023 14:12:04 01/12/20 23 01/12/2023 urina lysis , dipst ick Bilirubin Negati ve Not Available [address], [address], 01/12/2023 14:12:04 01/12/20 23 01/12/2023 urina lysis , dipst ick Glucose Negati ve Not Available [address], [address], 01/12/2023 14:12:04 01/12/20 23 01/12/2023 urina lysis , dipst ick Appearance Clear Not Available [address], [address], 01/12/2023 14:12:04 01/12/20 23 01/12/2023 urina lysis , dipst ick Color Yellow Not Available [address], [address], 01/12/2023 14:12:04 01/12/20 23 01/12/2023 HbA1c (hemo globi n A1c), blood HbA1C 5.2 % Not Available [address], [address], 01/12/2023 14:12:16 05/18/20 23 05/18/2023 rapid strep group A, throa t Strep negati ve Not Available [address], [address], 05/18/2023 14:26:56 05/18/20 23 05/18/2023 rapid strep group A, throa t Culture No Not Available [address], [address], 05/18/2023 14:26:56 05/09/20 24 05/10/2024 TSH+F REE T4 TSH 1.920 uIU/m L 0.450- 4.500 Not Available [facility] ([facility]) [address] [place], [address], 05/11/2024 08:04:13 05/09/20 24 05/10/2024 TSH+F REE T4 T4,free(dire ct) 1.07 NG/dL 0.82-1 .77 Not Available [facility] ([facility]) [address] [facility], [place], [address], 05/11/2024 08:04:13 05/09/20 24 05/10/2024 CBC WITH DIFFE RENTI AL/PL ATELE T WBC 9.0 x10e3 /uL 3.4-10 .8 Not Available [facility] ([facility]) [address] [facility], [place], [address], 05/11/2024 08:04:13 05/09/20 24 05/10/2024 CBC WITH DIFFE RENTI AL/PL ATELE T RBC 3.96 x10e6 /uL 3.77-5 .28 Not Available [facility] ([facility]) [address] [place], [address], 05/11/2024 08:04:13 05/09/20 24 05/10/2024 CBC WITH DIFFE RENTI AL/PL ATELE T hemoglobin 12.9 g/dL 11.1-1 5.9 Not Available [facility] ([facility]) [address] [facility], [place], [address], 05/11/2024 08:04:13 05/09/20 24 05/10/2024 CBC WITH DIFFE RENTI AL/PL ATELE T hematocrit 37.2 % 34.0-4 6.6 Not Available [facility] ([facility]) [address] [place], [address], 05/11/2024 08:04:13 05/09/20 24 05/10/2024 CBC WITH DIFFE RENTI AL/PL ATELE T MCV 94 fL 79-97 Not Available [facility] ([facility]) [address] [place], [address], 05/11/2024 08:04:13 05/09/20 24 05/10/2024 CBC WITH DIFFE RENTI AL/PL ATELE T MCH 32.6 pg 26.6-3 3.0 Not Available [facility] ([facility]) [address] [place], [address], 05/11/2024 08:04:13 05/09/20 24 05/10/2024 CBC WITH DIFFE RENTI AL/PL ATELE T MCHC 34.7 g/dL 31.5-3 5.7 Not Available [facility] ([facility]) [address] [facility], [place], [address], 05/11/2024 08:04:13 05/09/20 24 05/10/2024 CBC WITH DIFFE RENTI AL/PL ATELE T RDW 12.5 % 11.7-1 5.4 Not Available [facility] ([facility]) [address] [facility], [place], [address], 05/11/2024 08:04:13 05/09/20 24 05/10/2024 CBC WITH DIFFE RENTI AL/PL ATELE T platelets 323 x10e3 /uL 150-45 0 Not Available [facility] ([facility]) [address] [facility], [place], [address], 05/11/2024 08:04:13 05/09/20 24 05/10/2024 CBC WITH DIFFE RENTI AL/PL ATELE T neutrophils 69 % not estab. Not Available [facility] ([facility]) [address] [facility], [place], [address], 05/11/2024 08:04:13 05/09/20 24 05/10/2024 CBC WITH DIFFE RENTI AL/PL ATELE T lymphs 24 % not estab. Not Available [facility] ([facility]) [address] [facility], [place], [address], 05/11/2024 08:04:13 05/09/20 24 05/10/2024 CBC WITH DIFFE RENTI AL/PL ATELE T monocytes 5 % not estab. Not Available [facility] ([facility]) [address] [facility], [place], [address], 05/11/2024 08:04:13 05/09/20 24 05/10/2024 CBC WITH DIFFE RENTI AL/PL ATELE T eos 1 % not estab. Not Available [facility] ([facility]) [address] [place], [address], 05/11/2024 08:04:13 05/09/20 24 05/10/2024 CBC WITH DIFFE RENTI AL/PL ATELE T basos 1 % not estab. Not Available [facility] ([facility]) [address] [facility], [place], [address], 05/11/2024 08:04:13 05/09/20 24 05/10/2024 CBC WITH DIFFE RENTI AL/PL ATELE T immature cells CASH APPLICATION REPRESENTATIVE Not Available [facility] ([facility]) [address] [place], [address], 05/11/2024 08:04:13 05/09/20 24 05/10/2024 CBC WITH DIFFE RENTI AL/PL ATELE T neutrophils (absolute) 6.3 x10e3 /uL 1.4-7. 0 Not Available [facility] ([facility]) [address] [place], [address], 05/11/2024 08:04:13 05/09/20 24 05/10/2024 CBC WITH DIFFE RENTI AL/PL ATELE T lymphs (absolute) 2.2 x10e3 /uL 0.7-3. 1 Not Available [facility] ([facility]) [address] [place], [address], 05/11/2024 08:04:13 05/09/20 24 05/10/2024 CBC WITH DIFFE RENTI AL/PL ATELE T monocytes(ab solute) 0.4 x10e3 /uL 0.1-0. 9 Not Available [facility] ([facility]) [address] [place], [address], 05/11/2024 08:04:13 06/21/20 24 05/10/2024 CBC WITH DIFFE RENTI AL/PL ATELE T eos (absolute) 0.1 x10e3 /uL 0.0-0. 4 Not Available [facility] ([facility]) [address] [facility], [place], [address], 05/11/2024 08:04:13 05/09/20 24 05/10/2024 CBC WITH DIFFE RENTI AL/PL ATELE T baso (absolute) 0.1 x10e3 /uL 0.0-0. 2 Not Available [facility] ([facility]) [address] [facility], [place], [address], 05/11/2024 08:04:13 05/09/20 24 05/10/2024 CBC WITH DIFFE RENTI AL/PL ATELE T immature granulocytes 0 % not estab. Not Available [facility] ([facility]) [address] [facility], [place], [address], 05/11/2024 08:04:13 05/09/20 24 05/10/2024 CBC WITH DIFFE RENTI AL/PL ATELE T immature grans (abs) 0.0 x10e3 /uL 0.0-0. 1 Not Available [facility] ([facility]) [address] [facility], [place], [address], 05/11/2024 08:04:13 05/09/20 24 05/10/2024 CBC WITH DIFFE RENTI AL/PL ATELE T NRBC CASH APPLICATION REPRESENTATIVE Not Available [facility] ([facility]) [address] [facility], [place], [address], 05/11/2024 08:04:13 05/09/20 24 05/10/2024 CBC WITH DIFFE RENTI AL/PL ATELE T hematology comments: CASH APPLICATION REPRESENTATIVE Not Available [facility] ([facility]) [address] [facility], [place], [address], 05/11/2024 08:04:13 05/09/20 24 05/10/2024 COMP. METAB OLIC PANEL (14) glucose 85 mg/dL 70-99 Not Available [facility] ([facility]) [address] [place], [address], 05/11/2024 08:04:14 05/09/20 24 05/10/2024 COMP. METAB OLIC PANEL (14) BUN 6 mg/dL 6-20 Not Available [facility] ([facility]) [address] [place], [address], 05/11/2024 08:04:14 05/09/20 24 05/10/2024 COMP. METAB OLIC PANEL (14) creatinine 0.64 mg/dL 0.57-1 .00 Not Available [facility] ([facility]) [address] [place], [address], 05/11/2024 08:04:14 05/09/20 24 05/10/2024 COMP. METAB OLIC PANEL (14) eGFR 121 mL/mi n/1.7 3 >59 Not Available [facility] ([facility]) [address] [place], [address], 05/11/2024 08:04:14 05/09/20 24 05/10/2024 COMP. METAB OLIC PANEL (14) BUN/creatini ne ratio 9 9-23 Not Available [facility] ([facility]) [address] [place], [address], 05/11/2024 08:04:14 05/09/20 24 05/10/2024 COMP. METAB OLIC PANEL (14) sodium 139 mmol/ L 134-14 4 Not Available [facility] ([facility]) [address] [place], [address], 05/11/2024 08:04:14 05/09/20 24 05/10/2024 COMP. METAB OLIC PANEL (14) potassium 3.8 mmol/ L 3.5-5. 2 Not Available [facility] ([facility]) [address] [place], [address], 05/11/2024 08:04:14 05/09/20 24 05/10/2024 COMP. METAB OLIC PANEL (14) chloride 101 mmol/ L 96-106 Not Available [facility] ([facility]) [address] [place], [address], 05/11/2024 08:04:14 05/09/20 24 05/10/2024 COMP. METAB OLIC PANEL (14) carbon dioxide, total 23 mmol/ L 20-29 Not Available [facility] ([facility]) [address] [place], [address], 05/11/2024 08:04:14 05/09/20 24 05/10/2024 COMP. METAB OLIC PANEL (14) calcium 9.4 mg/dL 8.7-10 .2 Not Available [facility] ([facility]) [address] [place], [address], 05/11/2024 08:04:14 05/09/20 24 05/10/2024 COMP. METAB OLIC PANEL (14) protein, total 7.0 g/dL 6.0-8. 5 Not Available [facility] ([facility]) [address] [place], [address], 05/11/2024 08:04:14 05/09/20 24 05/10/2024 COMP. METAB OLIC PANEL (14) albumin 4.6 g/dL 3.9-4. 9 Not Available [facility] ([facility]) [address] [place], [address], 05/11/2024 08:04:14 05/09/20 24 05/10/2024 COMP. METAB OLIC PANEL (14) globulin, total 2.4 g/dL 1.5-4. 5 Not Available [facility] ([facility]) [address] [place], [address], 05/11/2024 08:04:14 05/09/20 24 05/10/2024 COMP. METAB OLIC PANEL (14) bilirubin, total 0.3 mg/dL 0.0-1. 2 Not Available [facility] ([facility]) [address] [place], [address], 05/11/2024 08:04:14 05/09/20 24 05/10/2024 COMP. METAB OLIC PANEL (14) alkaline phosphatase 65 IU/L 44-121 Not Available [facility]) [address] [place], [address], 05/11/2024 08:04:14 05/09/20 24 05/10/2024 COMP. METAB OLIC PANEL (14) AST (SGOT) 14 IU/L 0-40 Not Available [facility] ([facility]) [address] [place], [address], 05/11/2024 08:04:14 05/09/20 24 05/10/2024 COMP. METAB OLIC PANEL (14) ALT (SGPT) 14 IU/L 0-32 Not Available [facility] ([facility]) [address] [place], [address], 05/11/2024 08:04:14 05/09/20 24 05/10/2024 FSH AND LH LH 7.1 mIU/m L Adult Femal e Range Folli cular phase 2.4 - 12.6 Ovula tion phase 14.0 - 95.6 Lutea l phase 1.0 - 11.4 Postm enopa usal 7.7 - 58.5 Not Available [facility] ([facility]) [address] [place], [address], 05/11/2024 08:04:14 05/09/20 24 05/10/2024 FSH AND LH FSH 4.3 mIU/m L Adult Femal e Range Folli cular phase 3.5 - 12.5 Ovula tion phase 4.7 - 21.5 Lutea l phase 1.7 - 7.7 Postm enopa usal 25.8 - 134.8 Not Available [facility] ([facility]) [address] [place], [address], 05/11/2024 08:04:14 05/09/20 24 05/10/2024 HEMOG LOBIN A1C hemoglobin A1C 5.6 % 4.8-5. 6 Predi abete s: 5.7 - 6.4 Diabe chi: >6.4 Glyce rodriguez contr ol for adult s with diabe chi: <7.0 Not Available [facility] ([facility]) [address] [place], [address], 05/11/2024 08:04:15 05/09/20 24 05/10/2024 ESTRA DIOL estradiol 89.0 pg/mL Adult Femal e Range Folli cular phase 12.5 - 166.0 Ovula tion phase 85.8 - 498.0 Lutea l phase 43.8 - 211.0 Postm enopa usal <6.0 - 54.7 Pregn bridget 1st trime ster 215.0 - >4300 .0 Afua ECLIA metho dolog y Not Available [facility] ([facility]) [address] [place], [address], 05/11/2024 08:04:15 05/09/20 24 05/10/2024 PROGE STERO NE progesterone 1.4 NG/mL Folli cular phase 0.1 - 0.9 Lutea l phase 1.8 - 23.9 Ovula tion phase 0.1 - 12.0 Pregn ant First trime ster 11.0 - 44.3 Secon d trime ster 25.4 - 83.3 Third trime ster 58.7 - 214.0 Postm enopa usal 0.0 - 0.1 Not Available [facility] ([facility]) [address] [place], [address], 05/11/2024 08:04:16 05/09/20 24 05/11/2024 URINE CULTU RE, ROUTI NE urine culture, routine Final report Not Available [facility] ([facility] [facility]) [address] [facility], [place], [address], 05/11/2024 08:04:16 05/09/20 24 05/11/2024 URINE CULTU RE, ROUTI NE result 1 COMMEN T Mixed uroge nital karley 10,00 0-25, 000 colon y formi ng units per mL Not Available [facility] ([facility]) [address] [facility], [place], [address], 05/11/2024 08:04:16 05/09/20 24 05/09/2024 pregn bridget test, urine HCG negati ve Not Available [address], [address], 05/09/2024 14:02:13 05/09/20 24 05/09/2024 urina lysis , dipst ick Leukocytes Negati ve Not Available [address], [address], 05/09/2024 13:41:12 05/09/20 24 05/09/2024 urina lysis , dipst ick Nitrite negati ve Not Available [address], [address], 05/09/2024 13:41:12 05/09/20 24 05/09/2024 urina lysis , dipst ick Urobilinogen .2 Not Available [facility], [address], 05/09/2024 13:41:12 05/09/20 24 05/09/2024 urina lysis , dipst ick Protein Negati ve Not Available [address], [address], 05/09/2024 13:41:12 05/09/20 24 05/09/2024 urina lysis , dipst ick pH 7.0 Not Available [address], [address], 05/09/2024 13:41:12 05/09/20 24 05/09/2024 urina lysis , dipst ick Blood Negati ve Not Available [address], [address], 05/09/2024 13:41:12 05/09/20 24 05/09/2024 urina lysis , dipst ick Specific [place] 1.025 Not Available [address], [address], 05/09/2024 13:41:12 05/09/20 24 05/09/2024 urina lysis , dipst ick Ketone Negati ve Not Available [address], [address], 05/09/2024 13:41:12 05/09/20 24 05/09/2024 urina lysis , dipst ick Bilirubin Negati ve Not Available [address], [address], 05/09/2024 13:41:12 05/09/20 24 05/09/2024 urina lysis , dipst ick Glucose Negati ve Not Available [address], [address], 05/09/2024 13:41:12 05/09/20 24 05/09/2024 urina lysis , dipst ick Appearance Clear Not Available [address], [address], 05/09/2024 13:41:12 05/09/20 24 05/09/2024 urina lysis , dipst ick Color Yellow Not Available [address], [place], [address], 05/09/2024 13:41:12 01/01/20 23 01/01/2023 XR, lumbo sacra l spine , 2 or 3 view No observ ation record ed. [address], [place], [address], 01/04/2023 11:05:44 01/01/20 23 01/01/2023 XR, knee, 3 view No observ ation record ed. [address], [place], [address], 01/04/2023 11:05:45 01/01/20 23 01/01/2023 XR, hip, unila teral , 2 or 3 view No observ ation record ed. [address], [place], [address], 01/04/2023 11:05:45 03/02/20 23 03/02/2023 US, trans vagin al No observ ation record ed. [address], [place], [address], 03/05/2023 08:30:42 05/15/20 24 05/15/2024 US, pelvi s, trans abdom inal + trans vagin al No observ ation record ed. [facility] (X-Ray) [address] [place] [address] [address], [place], [address], 05/16/2024 12:37:58 05/15/20 24 05/15/2024 US, pelvi s, trans abdom inal + trans vagin al No observ ation record ed. [facility] [address], [place], [address], 05/16/2024 12:37:58 Result Notes None recorded. Problems Name Problem SNOMED Code Status Onset Date Resolution Date Notes Provider Name and Address Organization Details Recorded Time Uses oral contraception 2903480 Active 2015 Celina pulliam, [place] - [facility] 2 11:32:11 Pharyngitis 786369843 Active 2022 Mj Pugh, SENIOR PRODUCT DEVELOPMENT MANAGER [address], [place], [address], [place] - [facility] 3 11:49:20 Problem Notes None recorded. Procedures Surgical History Date Name Laterality Status Provider Name and Address Organization Details Recorded Time 08/19/20 Endometrial Ablation completed Whitneynancychetan Obrienguillermogeorgiana, SENIOR PRODUCT DEVELOPMENT MANAGER [address], [place], [address], [place] - [facility] 05/09/2024 13:59:01 01/06/20 16 Date of Last Pap Smear completed Celina Edwards [place] - [facility] 07/11/2022 11:32:11 Tubal Ligation completed Kellee Stears [place] - [facility] 07/10/2022 16:16:23 extraction of wisdom tooth completed Kellee Stears [place] - [facility] 07/10/2022 16:16:29 Imaging Results None recorded. Procedure Notes None recorded. Medical Equipment None Reported. Allergies Allergen ID Allergen Name Allergen Category Reaction Reaction Severity Criticality Documentation Date Start Date Code Code System Note Provider Name and Address Organization Details Recorded Time 26995 Product containin g penicilli n (product) medicatio n Not available Not available Not available 08/25/20162014 92529 8001 SNOMED Celina pulliam, [place] - [facility] 2 11:32:12 Medications Name Sig Start Date Stop Date Status Note LastModified by Organization Details LastModified Time cyclobenz aprine 10 mg tablet take 1 tablet (10 mg) by oral route 3 times per day prn 07/17 completed Not Available Not Available Not Available fluconazo le 100 mg tablet TAKE ONE TABLET BY MOUTH A ONE-TIME DOSE AND MAY REPEAT DOSE IN 3 DAYS IF NO IMPROVEM ENT 05/09 completed Not Available Not Available Not Available azithromy jazmin 250 mg tablet TAKE 2 TABLETS BY MOUTH ON DAY 1, AND THEN TAKE 1 TABLET BY MOUTH ONCE A DAY ON DAY 2 THROUGH DAY 5 05/09 completed Not Available Not Available Not Available fluconazo le 150 mg tablet TAKE 1 TABLET BY MOUTH NEEDED DIRECTED FOR 1 DAY active Not Available Not Available No t Available benzoyl peroxide 5 % topical gel apply to the affected area(s) by topical route 2 times per day for 30 days 09/19 completed benzoyl peroxide 5 % topical gel;Jhon rded Status: Recorded on: 09/22/20 08 3:02PM;D iscontin ued Status: Disconti nued on: 09/19/20 10 11:00AM; User: aria Fisher on: 03/21/20 09;Indic ation: Acne Vulgaris - (12.7061 00) Not Available Not Available Not Available oxycodone -acetamin ophen 5 mg-325 mg tablet TAKE 1 TABLET BY MOUTH EVERY 6 HOURS NEEDED FOR PAIN 05/09 completed Not Available Not Available Not Available Microgest in FE 12/08 (28) 1 mg-20 mcg (21)/75 mg (7) tablet take 1 tablet by oral route once daily for 28 days 07/17 completed Not Available Not Available Not Available Lice Treatment (permethr in) 1 % topical liquid APPLY A SUFFICIE NT AMOUNT OF SHAMPOO BY TOPICAL ROUTE ONCE ALLOW TO REMAIN ON HAIR FOR 10 MINUTES BEFORE RINSING OFF WITH WATER 07/17 completed Not Available Not Available Not Available doxycycli ne monohydra te 100 mg capsule take 1 capsule (100 mg) by oral route every 12 hours 07/19 completed doxycycl ine monohydr ate 100 mg oral capsule; Recorded Status: Recorded on: 03/19/20 09 11:45AM; Disconti nued Status: Disconti nued on: 07/19/20 10 5:14PM;U ser: aria Fisher on: 03/26/20 09 Not Available Not Available Not Available cephalexi n 500 mg capsule TAKE 1 CAPSULE BY MOUTH TWICE DAILY FOR 7 DAYS active Not Available Not Available No t Available omeprazol e 20 mg capsule,d elayed release Take 1 capsule every day by oral route. 05/18 completed Not Available Not Available Not Available diclofena c sodium 75 mg tablet,de layed release take 1 tablet (75 mg) by oral route 2 times per day with food 07/24 completed diclofen ac sodium 75 mg oral tablet,d elayed release (/JENNIFER); Recorded Status: Recorded on: 07/14/20 16 11:23AM; User: aria Fisher on: 07/24/20 16;Print ed: 07/14/20 16 Not Available Not Available Not Available ranitidin e 150 mg capsule take 1 capsule (150 mg) by oral route 2 times per day 01/06 completed ranitidi ne HCl 150 mg oral capsule; Prescrib e Status: Prescrib ed on: 10/05/20 15 1:09PM;D iscontin ued Status: Disconti nued on: 01/06/20 16 9:47AM;U ser: [email or web address]; Indicati on: Drug eruption - (693.0); Pharmacy Verified : 10/05/20 15 1:09PM Not Available Not Available Not Available benzoyl peroxide 5 % topical cleanser wash the affected area(s) by topical route 2 times per day for 30 days 09/22 completed benzoyl peroxide 5 % topical cleanser ;Recorde d Status: Recorded on: 09/22/20 08 2:18PM;D iscontin ued Status: Disconti nued on: 09/22/20 08 3:02PM;U ser: [email or web address]; Indicati on: Acne Vulgaris - (12.7061 00) Not Available Not Available Not Available methylpre dnisolone 4 mg tablets in a dose pack TAKE BY MOUTH DIRECTED ON INSIDE OF PACKAGE 05/09 completed Not Available Not Available Not Available sertralin e 50 mg tablet take 1 tablet (50 mg) by oral route once daily for 30 days 06/21 completed sertrali ne 50 mg oral tablet;P rescribe Status: Prescrib ed on: 09/06/20 15 11:58AM; Disconti nued Status: Disconti nued on: 06/21/20 16 3:50PM;U ser: aria ;Est. Completi on: 03/04/20 16;Pharm acyVleigh ied: 09/06/20 15 11:58AM Not Available Not Available Not Available imipramin e 25 mg tablet take 1 tablet (25 mg) by oral route [facility] 09/19 completed imiprami ne HCl 25 mg oral tablet;c omment: pt says does not take;Rec orded Status: Recorded on: 09/22/20 08 3:02PM;D iscontin ued Status: Disconti nued on: 09/19/20 10 11:00AM; User: aria ;Est. Completi on: 03/21/20 09;Indic ation: Depressi on - (969) Not Available Not Available Not Available loratadin e 10 mg tablet take 1 tablet (10 mg) by oral route once daily for 14 days 01/06 completed loratadi ne 10 mg oral tablet;P rescribe Status: Prescrib ed on: 10/05/20 15 1:09PM;D iscontin ued Status: Disconti nued on: 01/06/20 16 9:47AM;U ser: [email or web address]; Est. Completi on: 10/19/20 15;Indic ation: Urticari a - (5889 );Phar Clarence fied: 10/05/20 15 1:09PM Not Available Not Available Not Available naproxen 500 mg tablet 07/17 completed Not Available Not Available Not Available medroxypr ogesteron e 150 mg/mL intramusc ular syringe inject 1 millilit er (150 mg) by intramus cular route every 3 months 06/21 completed medroxyp rogester one 150 mg/mL intramus cular syringe; Recorded Status: Recorded on: 01/06/20 16 10:26AM; Disconti nued Status: Disconti nued on: 06/21/20 16 3:50PM;U ser: [email or web address] ;Printed : 01/06/20 16 Not Available Not Available Not Available Prilosec OTC 20 mg tablet,de layed release take 1 tablet by oral route daily for 30 days 08/09 completed Prilosec OTC 20 mg oral tablet,d elayed release (/EC); Recorded Status: Recorded on: 02/02/20 10 3:04PM;D iscontin ued Status: Disconti nued on: 08/09/20 15 12:44PM; User: [email or web address] EstRan Completi on: 07/31/20 10;Print ed: 02/02/20 10 Not Available Not Available Not Available Minastrin 24 Fe 1 mg-20 mcg (24)/75 mg (4) chewable tablet chew 1 tablet by oral route once daily for 28 days 08/09 completed Minastri n 24 Fe 1 mg-20 mcg(24) /75 mg (4) oral tablet,lizz gould; Andrea e Status: Prescrib ed on: 06/29/20 15 3:05PM;D iscontin ued Status: Disconti nued on: 08/09/20 15 12:44PM; User: [email or web address] TeresaEst. Completi on: 07/27/20 15;Pharm acyVerif ied: 06/29/20 15 3:05PM Not Available Not Available Not Available Contrave 8 mg-90 mg tablet,ex tended release Take 1 tablet every day by oral route as directed for 30 days. 09/12 completed Not Available Not Available Not Available Vitals Date Recorded Body height Body mass index (BMI) Body weight Heart rate Oxygen saturation Oxygen saturation in Arterial blood by Pulse oximetry Respiratory rate Body temperature Systolic And Diastolic Provider Name and Address Organization Details Last Updated DateTime 3 159.13 cm 28.7 kg/m2 18112.7 8 g 94 /min 98 % 98 % 18 /min 97.8 [degF] 120/74 mm[Hg] Kellee Stears [place] - [facility] 3 10:55:34 Date Recorded Body height Body mass index (BMI) Body weight Body temperature Heart rate Oxygen saturation Oxygen saturation in Arterial blood by Pulse oximetry Respiratory rate Provider Name and Address Organization Details Last Updated DateTime 3 159.13 cm 29.1 kg/m2 01107.7 6 g 97.9 [degF] 97 /min 98 % 98 % 18 /min Brisa Garibay [facility] 3 13:40:40 Date Recorded Body height Body mass index (BMI) Body weight Body temperature Heart rate Oxygen saturation Oxygen saturation in Arterial blood by Pulse oximetry Respiratory rate Systolic And Diastolic Provider Name and Address Organization Details Last Updated DateTime 4 159.13 cm 25.4 kg/m2 14494.1 2 g 97.6 [degF] 110 /min 99 % 99 % 18 /min 122/76 mm[Hg] Brisa Garibay [facility] 4 13:39:32 Date Recorded Body height Body mass index (BMI) Body weight Body temperature Heart rate Oxygen saturation Oxygen saturation in Arterial blood by Pulse oximetry Respiratory rate Systolic And Diastolic Provider Name and Address Organization Details Last Updated DateTime 3 159.13 cm 27.4 kg/m2 66120.6 3 g 98.5 [degF] 99 /min 95 % 95 % 18 /min 110/72 mm[Hg] Brisa LOMAX [facility] 3 14:03:37 Date Recorded Body height Body mass index (BMI) Body weight Body temperature Heart rate Oxygen saturation Oxygen saturation in Arterial blood by Pulse oximetry Respiratory rate Systolic And Diastolic Provider Name and Address Organization Details Last Updated DateTime 3 159.13 cm 27.6 kg/m2 30817.2 2 g 97.7 [degF] 78 /min 97 % 97 % 18 /min 105/68 mm[Hg] Brisa Garibay [facility] 3 13:54:42 Social History Question Answer Notes LastModified by Organizat ion Details LastModified Time Tobacco Smoking Status Former Smoker Kellee Ja pulliam [facility] 07/10/2022 16:14:25 Do You Have An Advance Directive? No Information not available 07/10/2022 Are You Blind Or Do You Have Difficulty Seeing? No Information not available 07/10/2022 Is Blood Transfusion Acceptable In An Emergency? Yes [email or web address] Information not available 10/18/2016 What Is Your Level Of Caffeine Consumption? Occasional Information not available 07/10/2022 How Much Tobacco Do You Chew? None [email or web address] Information not available 10/18/2016 Are You Deaf Or Do You Have Serious Difficulty Hearing? No Information not available 07/10/2022 What Type Of Diet Are You Following? REGULAR Information not available 07/10/2022 What Is The Highest Grade Or Level Of School You Have Completed Or The Highest Degree You Have Received? [id number] Information not available 07/10/2022 Have There Been Any Changes To Your Family Or Social Situation? No Information not available 07/10/2022 What Is The Fluoride Status Of Your Home? Unknown Information not available 07/10/2022 Live Alone Or With Others? With Others Information not available 10/18/2016 Do You Have A Medical Power Of Integration Architect? No Information not available 07/10/2022 How Many Children Do You Have? 3 2 Step Children Information not available 07/10/2022 Performs Monthly Self-breast Exam? Yes [email or web address] Information not available 10/18/2016 Do You Use Protection During Sex? Always [email or web address] Information not available 10/18/2016 What Is Your Relationship Status? Information not available 07/10/2022 Seat Belts Used Routinely Yes [email or web address] Information not available 10/18/2016 Are You Sexually Active? Yes Information not available 10/18/2016 Do You Have Smoke And Carbon Monoxide Detectors In Your Home? Yes Information not available 07/10/2022 At What Age Did You Start Smoking Tobacco? 19 [email or web address] Information not available 10/18/2016 Are You Passively Exposed To Smoke? Yes Information not available 07/10/2022 How Much Tobacco Do You Smoke? 0.5 PPD [email or web address] Information not available 10/18/2016 General Stress Level Medium [email or web address] Information not available 10/18/2016 Do You Use Sunscreen Routinely? Yes [email or web address] Information not available 10/18/2016 How Many Years Have You Smoked Tobacco? 2 [email or web address] Information not available 10/18/2016 Do You Have Difficulty Walking Or Climbing Stairs? No Information not available 07/10/2022 How Many Years Have You Used E-cigarettes Or Vape? 2 Information not available 07/10/2022 Sex: Female Functional Status Question Answer Note LastModified by Organizat ion Details LastModified Time Do you or have you ever used smokeless tobacco? Never used smokeless tobacco Information not available 07/10/2022 Are you currently employed? Yes Information not available 07/10/2022 Do you have transportation difficulties? No Information not available 07/10/2022 Are you able to care for yourself? Yes Information n ot available 07/10/2022 Do you have difficulty dressing or bathing? No Information not available 07/10/2022 Do you or have you ever used e-cigarettes or vape? Current user of electronic cigarettes Information not available 07/10/2022 What is your exercise level? Occasional Information not available 07/10/2022 Do you use any illicit or recreational drugs? No Information not available 07/10/2022 Do you or have you ever used any other forms of tobacco or nicotine? Yes Information not available 07/10/2022 What is your level of alcohol consumption? None Information not available 07/10/2022 Are you able to walk? [email or web address] Information not available 07/10/2022 Do you have difficulty doing errands alone? 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 [id number] works night Information not available 07/10/2022 Do you have difficulty concentrating, remembering or making decisions? No Information not available 07/10/2022 Family History Relationship Description Onset Age of this Age Resolved Age Notes LastModified by Organization Details LastModified Time Paternal Grandmother Acid reflux Not availabl e 07/11/2022 11:32:11 Paternal Grandmother Arthritis Not available 07/11/2022 11:32:11 Paternal Grandmother Bipolar disorder Not available 06/20 11:32:11 Paternal Grandmother Osteoarthrit is Not available 06/20 11:32:11 Mother Acid reflux Not mayte ilable 07/11/2022 11:32:11 Mother No current problems or disability [email or web address] Not available 07/10 16:13:05 Maternal Grandmother Arthritis Not available 07/11/2022 11:32:11 Maternal Grandmother Bipolar disorder Not available 06/20 11:32:11 Maternal Grandmother Dementia Not available 0 07/11/2022 11:32:11 Maternal Grandmother Glaucoma Not available 0 07/11/2022 11:32:11 Maternal Grandmother Hyperthyroid ism Not available 06/20 11:32:11 Maternal Grandmother Suicide Not available 11:32:11 Father Asthma Not availabl e 07/11/2022 11:32:11 Father No current problems or disability [email or web address] Not available 07/10 16:13:05 Maternal Aunt Bipolar disorder Not available 06/20 11:32:11 Maternal Aunt Malignant tumor of breast Not available 06/20 11:32:11 Maternal Aunt Diabetes mellitus Not available 06/20 11:32:11 Paternal Grandfather Cirrhosis of liver Not available 06/20 11:32:11 Maternal Grandfather Heart disease Not available 06/20 11:32:11 Medical History Condition Response Pancreatitis N Other N Atrial Fibrillation N congenital heart disease N Blood Diseases N Hyperthyroidism N Rheumatoid arthritis N Blood Transfusion N Erectile Dysfunction N amputation N Skin Lesions N Depression N Pneumonia N Incontinence N Murmur N Edema N Alzheimer's Disease N Migraine Headaches N Tobacco Abuse N Anxiety Disorder N Hemorrhoids N Obesity N Vision or Eye Problems N Arthritis N Restless Leg Syndrome N Infertility N Polyps N Carpal Tunnel N Acid Reflux (GERD) N Cancer N Stroke N Varicosities N Tendonitis N Crohn's Disease N Hypercholesterolemia N Skin Cancer N Fibromyalgia N Headaches N Anal Fissure N Irritable Bowel Syndrome N Kidney Disease N Heart Problems N Hospitalizations N Gallstones N Kidney or Bladder Problems N Goiter N Acne N Eating Disorder N Guevara's Esophagus N Hypertriglyceridemia N Constipation N Embolism N Vitamin B12 Deficiency N Deviated Septum N AIDS/HIV N Myocardial Infarction N Asthma N Mitral Valve Disorders N Vertigo N Hepatitis N Thyroid Cancer N Neuropathy N History of DVT N Herniated Disc N Chicken Pox N Von Willebrands Disease N Thrombophilias N Breast Cancer N Hernia N Plantar Fasciitis N Hypothyroidism N Lung Disease N Defects or Inherited Disease N Breast Problem N Ovarian Cyst N Anesthesia Complications N Testosterone Deficiency N Interstitial Cystitis N Congenital Anomalies N Hypoglycemia N Blood clot N Vitamin D Deficiency N Cellulitis N Endometriosis N Bladder or Kidney Problems N Fracture N Schizophrenia N Panic Disorder N Concussion N Spina Bifida N Osteoarthritis N Parkinson's Disease N Disc Protrusion N STI N Esophagitis N Angina N Thyroid Problems N GI Problems N ADD/ADHD N Anemia N Multiple Sclerosis N Abnormal PAP N Lumbago N Mental Illness N Psychiatric Illness N Ovarian Cancer N Diabetes N Degenerative Disc Disease N Seizures/Epilepsy N Syncope N Insomnia N Hyperlipidemia N Eczema N Dementia N Attention Deficient Disorder N Abuse/Domestic Violence N Ulcerative colitis N Cerebrovascular Disease N Depression N Guillain-Callery N Sleep Apnea N Aneurysm N Heart Disease N Bronchitis N Suicidal Ideation N Pre-Eclampsia N Hypertension N Osteoporosis N Gynecological History Statement/Question Response Date of Last Mammogram Flow Heavy Date of LMP 05/21/2023 Post Menopausal Bleeding N STIs/STDs N Last Lipids Date of Last Colonoscopy Last Ovarian U/S Screening Abnormal Pap N On BCP's at Conception? Y HPV Vaccine N Duration of Flow (days) 4 Age at Menarche 8 Current Control Method Tubal Ligat ion Age at First Child 18 Last Annual Exam/Provider 01-06-2016 Frequency of Cycle (Q days) 30 Most Recent Bone Density Sexually Active? Y Date of Last Cervical Culture 01/06/2016 Menses Monthly Y Date of Last Pap Smear 01/06/2016 Sexual Problems? N LMP Approximate Hormone Replacement Therapy N Obstetrics History GPAL:G 1 P 0 2 0 2 Type Value Multiple Births 1 Premature 2 Living 2 Total 1 Immunizations Vaccine Type Date Status Note Provider Koby ryder and Address Organization Details Recorded Time DTaP 4 completed Not Available [facility] 05/29/2023 13:40:25 DTaP 7 completed Not Available [facility] 05/29/2023 13:40:25 Hib (PRP-OMP) 3 completed Not Available [facility] 05/29/2023 13:40:25 Hib (PRP-OMP) 3 completed Not Available [facility] 05/29/2023 13:40:25 Hib (PRP-OMP) 4 completed Not Available [facility] 05/29/2023 13:40:25 Hib (PRP-OMP) 4 completed Not Available [facility] 05/29/2023 13:40:25 IPV 3 completed Not Available [facility] 05/29/2023 13:40:25 IPV 3 completed Not Available [facility] 05/29/2023 13:40:25 IPV 4 completed Not Available [facility] 05/29/2023 13:40:25 IPV 7 completed Not Available [facility] 05/29/2023 13:40:25 MMR 4 completed Not Available [facility] 05/29/2023 13:40:25 MMR 9 completed Not Available [facility] 05/29/2023 13:40:25 varicella 1 completed Not Available [facility] 05/29/2023 13:40:25 meningococcal MCV4P 6 completed Not Available [facility] 05/29/2023 13:40:25 influenza, unspecified formulation 5 completed Not Available [facility] 05/29/2023 13:40:25 influenza, unspecified formulation 6 completed Not Available [facility] 05/29/2023 13:40:25 HPV, unspecified formulation 7 completed Not Available [facility] 05/29/2023 13:40:25 HPV, unspecified formulation 7 completed Not Available [facility] 05/29/2023 13:40:25 HPV, unspecified formulation 8 completed Not Available [facility] 05/29/2023 13:40:25 tetanus toxoid, adsorbed 4 completed Not Available [facility] 05/29/2023 13:40:25 Hep B, adolescent or pediatric 3 completed Not Available [facility] 05/29/2023 13:40:25 Hep B, adolescent or pediatric 3 completed Not Available [facility] 05/29/2023 13:40:25 Hep B, adolescent or pediatric 4 completed Not Available [facility] 05/29/2023 13:40:25 DTaP 3 completed Not Available [facility] 05/29/2023 13:40:25 DTaP 3 completed Not Available [facility] 05/29/2023 13:40:25 DTaP 4 completed Not Available [facility] 05/29/2023 13:40:25 Influenza, split virus, trivalent, preservative 9 completed MONIE V[facility]12/[facility] 18:39:13 Past Encounters Encounter ID Performer Location Encounter Start Date Encounter Closed Date Diagnosis/Indication Diagnosis SNOMED-CT Code Diagnosis ICD10 Code Diagnosis Note [id number] [facility] [address] [place] [address] 05/10/2009 00:00:00 [id number] [facility] [address] [place] [address] 05/18/2009 00:00:00 [id number] [facility] [address] [place] [address] 08/03/2009 00:00:00 [id number] [facility] [address] [place] [address] 07/14/2016 00:00:00 [id number] [facility] [address] [place] [address] 09/22/2008 00:00:00 [id number] [facility] [address] [place] [address] 10/22/2008 00:00:00 [id number] [facility] [address] [place] [address] 07/19/2010 00:00:00 [id number] [facility] [address] [place] [address] 09/19/2010 00:00:00 [id number] [facility] [address] [place] [address] 08/09/2015 00:00:00 [id number] [facility] [address] [place] [address] 09/06/2015 00:00:00 [id number] [facility] [address] [place] [address] 01/12/2009 00:00:00 [id number] [facility] [address] [place] [address] 10/05/2015 00:00:00 [id number] [facility] [address] [place] [address] 03/19/2009 00:00:00 [id number] [facility] [address] [place] [address] 01/06/2016 00:00:00 [id number] [facility] [address] [place] [address] 05/10/2009 00:00:00 [id number] [facility] [address] [place] [address] 03/30/2016 00:00:00 [id number] [facility] [address] [place] [address] 06/21/2016 00:00:00 [id number] [facility] [address] [place] [address] 07/14/2016 00:00:00 [id number] 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 Techniques for quitting smoking discussed including pharmaceut icals (Nicotine patches, gum, Zyban, and Chantix) and behavioral therapy (Dick Trujillo). Immediate and fisher lobster cardiovasc ular and respirator y benefits of smoking cessation discussed. Lung cancer risk reduction also discussed. [id number] Whitneynathen fito [address] [address] 07/10/2022 16:07:56 07/10/2022 17:04:11 Fatigue 28695569 R53.83 Obesity 582595684 E66.9 [id number] Lissette Obrienfito [address] [address] 07/17/2022 08:30:51 07/17/2022 09:04:56 Body mass index 25-29 - overweight 177874436 Z68.27 discussed low calorie/ca rb diet and exercise plandiscus sed options for medication management .pt would like to try contrave- risk and benefits discussed with pt. medication discussed with pt in detail. Overweight [id number] E66 .[id number] Liss[address] Smith[address] [address] 09/12/2022 17:50:52 09/12/2022 18:50:30 Acute urinary tract infection 439871498 N39.0 Dysuria 79188474 R30.0 [id number] [facility] Ob[facility] [address] [address] 12/22/2022 10:47:35 12/22/2022 11:50:56 Acute urinary tract infection 975044054 N39.0 increase fluids Low back pain 050796130 M54.50 Pain of ri ght hip joint 2654929460 19902 M25.551 Pain of ri ght knee joint 9018889715 57718 M25.561 Pain of mu ltiple joints [id number] M25.50 [id number] [facility] [address] 01/12/2023 13:32:09 01/12/2023 15:00:35 Overactive urinary bladder 734222544 N32.81 if any other symptoms return sooner Pain of mu ltiple joints 67441530 M25.50 labs was wnlcontinu e to monitor tylenol or motrin as needed [id number] Lissette Smith [address] [address] 05/18/2023 13:33:45 05/18/2023 14:38:16 Pharyngitis 396813119 J02.9 if symptoms worsen [facility] [id number] Mj Pugh [place] [address] 05/29/2023 13:39:50 05/29/2023 14:24:27 Pharyngitis 379828734 J02.9 [id number] [facility] [address] [address] 05/09/2024 13:13:09 05/09/2024 14:14:56 Acute urinary tract infection 125991237 N39.0 increase fluidstrea t while waiting for culture Unintentio nal weight loss 535652338 R63.4 Night sweats 42089337 R6 1 Pain in pelvis 73430041 R10.2 if symptoms worsen or no improvemen t return or go to ed Health Concerns Section Related Observation LastModified by Organization Detai ls LastModified Time None Recorded Concern Status LastModified by Organization Details LastModified Time None Recorded Advance Directives Directive N: Payers Insurance Date Sequence Insurance Name Policy Number Policy Ellison Covered Member ID Ellison Member ID Guarantor Name 07/11/2022 1 [facility] [place] [facility] [place] Ángela Edwards [id number] Ángela Cazares 05/09/2024 [place] [facility] [place]MEDICAID[place] [id number] Ángela Cazares [id number] Ángela Cazares 05/09/2024 1 *SELF PAY* Ki rstyn 05/15/2024 1 [place] [id number] Ángela Cazares [id number] Ángela luisa 07/11/2022 1 PASSPORT BY [place] (MEDICAID REPLACEMENT - HMO) Ángela Pachecokostasaleksey [id number] Ángela kostasaleksey 05/09/2024 1 [facility]ICAID H[facility]) Ángela Pachecoluisa [id number] Ángela luisa 07/11/2022 1 [place] Jerry Motta [id number] Ángela kostase 05/09/2024 1 [place] [id number] 02 Rickie Cazares [id number] Ángela kostas07/11/2022 1 UNSPECIFIED REMIT PAYOR Ángela Sage Notes Date Note Type Note Provider Name and Address Organization Details Recorded Time 12/22/2022 text/html Ángela is a 27 year old female who presents to the office today with concerns ofright hip pain-causing knee and back pain for years. has had xray of low back but no other work up. pt states she did do PT with no improvement. pt states the pain has worsened and now causing her to not be able to walk far due to pain radiating to hip and leguti-freq, incontinence- due to not getting to bathroom fast enough,pelvis pressure Lissette Smith, SENIOR PRODUCT DEVELOPMENT MANAGER [address], [place], [address], [place] - [facility] 12/22/2022 11:33:03 01/12/2023 text/html Back PainReporte d bypatient.Location:p ain is not radiating Severity:improving Associated Symptoms:no fever; no weak limbs; no numbness of the legs/feet; no tingling; no incontinence; no shortness of breath; no unintentional weight loss; no chills; no night sweats; no gait instability; no bowel/bladder symptoms; no recent increase in stress Prior Imaging:MRI; X-ray 27 yr old female presents for follow up on multiple joint pain, says her urine has a sweet smell with freq. Lissette Smith, SENIOR PRODUCT DEVELOPMENT MANAGER [address], [place], [address], [place] - [facility] 01/12/2023 15:54:35 05/18/2023 text/html Sore ThroatRepor kenyon bypatient.Duration:s tarted 3 day(s) ago Quality:painful;symp toms worse in the evening Severity:mild Context:no recent travel Associated Symptoms:no fever 28 yr old female presents with a swollen tonsil, denies pain in the throat. Has had some dizziness and sweating spells as well. Lissette Smith, SENIOR PRODUCT DEVELOPMENT MANAGER [address], [place], [address], [facility] - [facility] 05/18/2023 14:34:23 05/29/2023 text/html sore throat for 14 daysseen by PCP 11 days ago and PE positive for erythematous, swollen tonsils, Rapid strep -, started on z-douglas, Sore Throat- Onset was 14 days ago- Symptoms described as right sided throat pain- Occurs daily, constant- Severity is mild to moderate- Aggravating factors: none- Alleviating factors: salt water gargles- Associated ROS: headaches, mild cough- Negative ROS: No aphagia, dyspnea, fever, hoarseness, rash - Associated medical history: none- Associated social history: electronic cigarettes- Associated sexual history: none- Associated family history: none Mj Pugh, SENIOR PRODUCT DEVELOPMENT MANAGER [address], [place], [address], [facility] - [facility] 05/29/2023 14:39:50 05/09/2024 text/html 29 yr old female presents for back pain that radiates around to the lower pelvic region. She states it is constant and started a month ago. No irregular bleeding reported. Patient does state she has some hesitancy when urinating and freq. states pain with intercourse. pt states she has had wt loss but also quit drinking pop. pt states also having night sweats. Lissette Smith, SENIOR PRODUCT DEVELOPMENT MANAGER [address], [place], [address], [place] - [facility] 05/09/2024 16:11:33 OBGyn Episode No OBEpisode recorded.
[2025-05-31 14:30] VITALS: BP 100/52; PULSE 78; RESP 18; O2SAT 100
--- NOTE | 2025-05-31 15:01 | CT_ITS ---
PROCEDURE INFORMATION: Exam: CT Cervical Spine Without Contrast Exam date and time: 05/31/2025 3:48 PM Age: 30 years old Clinical indication: Neck pain; Additional info: Atraumatic spine pain TECHNIQUE: Imaging protocol: Computed tomography of the cervical spine without contrast. Radiation optimization: All CT scans at this facility use at least one of these dose optimization techniques: automated exposure control; mA and/or kV adjustment per patient size (includes targeted exams where dose is matched to clinical indication); or iterative reconstruction. COMPARISON: MR ANGIO HEAD WO CON 08/13/2021 9:38 AM FINDINGS: Bones/joints: No acute fracture or subluxation. No significant loss of disc space height. Nonspecific straightening is likely positional. C2-C3: No significant spinal canal or foraminal stenosis. C3-C4: No significant spinal canal or foraminal stenosis. C4-C5: No significant spinal canal or foraminal stenosis. C5-C6: No significant spinal canal or foraminal stenosis. C6-C7: No significant spinal canal or foraminal stenosis. C7-T1: No significant spinal canal or foraminal stenosis. Lungs: Lung apices are clear as visualized. Pleural spaces: No apical pneumothorax. Soft tissues: No precervical soft tissue swelling. IMPRESSION: No acute fracture of the cervical spine.
--- NOTE | 2025-05-31 15:01 | CT_ITS ---
PROCEDURE INFORMATION: Exam: CT Thoracic Spine Without Contrast Exam date and time: 05/31/2025 3:50 PM Age: 30 years old Clinical indication: Pain in thoracic spine; Additional info: Atraumatic back pain TECHNIQUE: Imaging protocol: Computed tomography of the thoracic spine without contrast. Radiation optimization: All CT scans at this facility use at least one of these dose optimization techniques: automated exposure control; mA and/or kV adjustment per patient size (includes targeted exams where dose is matched to clinical indication); or iterative reconstruction. COMPARISON: CT CERVICAL SPINE WO CON 05/31/2025 3:48 PM FINDINGS: Bones/joints: No acute fracture or subluxation. No significant loss of disc space height. T1-T2: No significant spinal canal or foraminal stenosis. T2-T3: No significant spinal canal or foraminal stenosis. T3-T4: No significant spinal canal or foraminal stenosis. T4-T5: No significant spinal canal or foraminal stenosis. T5-T6: No significant spinal canal or foraminal stenosis. T6-T7: No significant spinal canal or foraminal stenosis. T7-T8: No significant spinal canal or foraminal stenosis. T8-T9: No significant spinal canal or foraminal stenosis. T9-T10: No significant spinal canal or foraminal stenosis. T10-T11: No significant spinal canal or foraminal stenosis. T11-T12: No significant spinal canal or foraminal stenosis. T12-L1: No significant spinal canal or foraminal stenosis. Soft tissues: Unremarkable. IMPRESSION: No acute fracture of the thoracic spine.
--- NOTE | 2025-05-31 15:01 | CT_ITS ---
PROCEDURE INFORMATION: Exam: CT Lumbar Spine Without Contrast Exam date and time: 05/31/2025 3:53 PM Age: 30 years old Clinical indication: Low back pain; Additional info: Atraumatic back pain TECHNIQUE: Imaging protocol: Computed tomography of the lumbar spine without contrast. Radiation optimization: All CT scans at this facility use at least one of these dose optimization techniques: automated exposure control; mA and/or kV adjustment per patient size (includes targeted exams where dose is matched to clinical indication); or iterative reconstruction. COMPARISON: CR XR LUMBAR SPINE 2-3V 01/01/2023 4:51 PM FINDINGS: Bones/joints: No acute fracture or subluxation. No loss of disc space height. Mild levocurvature is again noted. L1-L2: No significant spinal canal or foraminal stenosis. L2-L3: No significant spinal canal or foraminal stenosis. L3-L4: No significant spinal canal or foraminal stenosis. L4-L5: No significant spinal canal or foraminal stenosis. L5-S1: No significant spinal canal or foraminal stenosis. Soft tissues: Unremarkable. IMPRESSION: No acute fracture of the lumbar spine.
[2025-05-31] MEDS: ACETAMINOPHEN 500MG TAB 1000 MG PO (15:23)
[2025-05-31] MEDS: KETOROLAC 30MG/ML VIAL 15 MG IV (15:23)
[2025-05-31] MEDS: DEXAMETHASONE 4MG/ML 5ML MDV 10 MG IV (15:23)
[2025-05-31] MEDS: METHOCARBAMOL 500MG TABLET 500 MG PO (15:23)
[2025-05-31 15:26] LABS: Microscopic, Urine URINE MICROSCOPIC (MICROSCOPIC)
[2025-05-31 15:30] VITALS: BP 109/69; PULSE 66; RESP 18; O2SAT 100
[2025-05-31 15:31] LABS: Bilirubin,Urine Negative (Negative); Color,Urine YELLOW (Yellow); Glucose,Urine (UA) Negative (Negative); Ketones,Urine Negative (Negative); Leukocyte Esterase,Urine Negative (Negative); PH,Urine 8.0 (5.0-8.5); Protein,Urine Negative (Negative); Specific Gravity, Urine 1.015 (1.005-1.030); Urobilinogen,Urine 0.2 EU/dl (0.2)
[2025-05-31 15:37] LABS: Urine Pregnancy, HCG Qual. Negative (Negative)
[2025-05-31 15:43] LABS: Hematocrit 37.7 % (37.0-47.0); Hemoglobin 12.7 g/dL (12.2-16.2); Immature Granulocytes % 0.3 %; Mean Corpuscular HGB Conc 33.7 g/dL (31.8-35.4); Mean Corpuscular Hemoglobin 32.2 pg (27.0-31.2); Mean Corpuscular Volume 95.4 fl (81-99); Nucleated Red Blood Cells % 0 %; Platelet Count 296 K/mm3 (142-424); Red Blood Count 3.95 M/mm3 (4.20-5.40); Red Cell Distribution Width-SD 43.4 fL; White Blood Count 7.8 K/mm3 (4.8-10.8)
[2025-05-31 15:44] LABS: HCG Qualitative, Serum Negative (Negative)
--- NOTE | 2025-05-31 15:44 | PC.NURSE ---
pt going for CT at this time
[2025-05-31 15:48] LABS: Alanine Aminotransferase 15 U/L (12-78); Albumin Level 4.6 g/dl (3.5-5.0); Albumin/Globulin Ratio 1.8 (1.1-1.8); Alkaline Phosphatase 68 U/L (38-126); Anion Gap 13.1 mEq/L (5-15); Aspartate Amino Transferase 22 U/L (14-36); Bilirubin,Total 0.3 mg/dl (0.2-1.3); Blood Urea Nitrogen 10 mg/dl (7-17); Calcium 8.8 mg/dl (8.4-10.2); Carbon Dioxide 28 mmol/L (22.0-30.0); Chloride 101 mmol/L (98-107); Creatinine Clearance Estimated 112 mL/min (50-200); Creatinine,Serum 0.70 mg/dl (0.52-1.04); Estimated Glomerular Filt Rate 97 ml/min (>60); GFR (African American) 117 ML/MIN (>60); Globulin 2.5 g/dL (1.3-3.2); Glucose 85 mg/dl (74-100); Potassium 4.1 mmoL/L (3.5-5.1); Sodium 138 mmol/L (136-145); Total Protein,Serum 7.1 g/dl (6.3-8.2)
[2025-05-31 15:54] LABS: Squamous Epithelial Cell,Urine Occasional #/hpf (0-5)
[2025-05-31 16:00] VITALS: BP 103/64; PULSE 63; RESP 18; O2SAT 100
[2025-05-31 16:06] LABS: Procalcitonin < 0.030 ng/mL (0.0-2.0)
[2025-05-31 16:24] LABS: C-Reactive Protein < 0.3 mg/L (0-4)
[2025-05-31 16:30] VITALS: BP 95/57; PULSE 68; RESP 16; O2SAT 100
[2025-05-31 18:19] VITALS: BP 130/78; PULSE 78; RESP 20; TEMP 36.8; O2SAT 98
== END 2025-05-31 18:21 | disposition home or self-care (01) ==
PROVIDERS: Physician Assistant; Emergency Provider Student in an Organized Health Care Education/Training Program; PCP Nurse Practitioner Family
DX: M54.6 Pain in thoracic spine (principal); M54.50 Low back pain, unspecified
CPT/HCPCS: 72125; 72128; 72131; 80053; 81001; 81025; 84145; 84703; 85025; 85651; 86140; 96374; 96375; 99285; J1100; J1885

== ENCOUNTER 2025-06-03 15:03 | Outpatient (CLI) | payer BC, SELFPAY ==
--- OUTSIDE RECORDS SUMMARY | 2025-06-03 15:06 | XMS_ITS | Data Portability ---
Author Organization [facility] Address [address] [place] [address] Care Team Providers Care Mfts Name Role Phone LISSETTE VALADEZ Primary Care Provider [phone] Assessment Encounter Date Assessment Date Assessment LastModified [...] of ice to help with symptoms relief [email or web address] Not available 05/29/2023 14:33:42 Plan of Treatment Reminders Order Date Submit Date Provider Last Modified By Organization Details Last Modified Time Details Appointments None recorded. Lab HbA1c (hemoglobin A1c), blood 2023 024 [facility], [address] , [facility], [place], [address], 4 08:04:15 urinalysis, dipstick 2023 024 [facility], [address] [facility], [place], [address], 14:02:25 culture, urine 2023 024 [facility], [address], [address] [address], [place], [address], 4 08:04:16 lh + FSH, serum 2023 024 [facility], [address], [place], [place], [address], 4 08:04:14 test, urine 2023 024 [facility], [address] [place] [address], [address], 4 15:05:06 estradiol, serum 2023 024 [facility], [address], [address], [place], [address], 4 08:04:15 progesteron e, serum 2023 024 [facility], [address], [place], [place], [address], 4 08:04:16 TSH + free T4, serum 2023 024 [facility], [address], [place] [address], [place], [address], 4 08:04:13 CMP, serum or plasma 2023 024 [facility], [address], [place] [address], [place], [address], 4 08:04:14 CBC w/ auto diff 2023 024 [facility], [address], [place] [address], [place], [address], 4 08:04:13 rapid strep group A, [facility], [address] [place] [address], [address], 3 14:33:29 urinalysis, dipstick 2022 023 [facility], [address] [place] [address], [address], 3 15:54:13 HbA1c (hemoglobin A1c), blood 2022 023 [facility], [address] [place] [address], [address], 3 15:54:13 urinalysis, dipstick 2022 023 [facility], [address] [place] [address], [address], 3 11:28:43 culture, urine 2022 023 [facility], [address], [address] [address], [place], [address], 3 13:06:37 ESR (erythrocyt e sedimentati on rate), blood 2022 023 [facility], [address], [address] [address], [place], [address], 3 13:06:36 rf (rheumatoid factor), serum 2022 023 [facility], [address], [place], [place], [address], 3 13:06:35 C reactive protein, QN, serum or plasma 2022 023 [facility], [address], [place], [place], [address], 3 13:06:36 OSMEL (antinuclea r antibodies) screen, serum 2022 023 [facility], [address], [place] [address], [place], [address], 3 13:06:35 Referral otolaryngol ogist referral 2022 023 [email or web address] [facility], [address], [place], [address], 3 10:22:25 Procedures None recorded. Surgeries None recorded. Imaging US, pelvis, transabdomi nal + transvagina l - abdomen complete and transvagina l 2023 024 [facility] (X-Ray), [address], [place], [address], 4 11:20:14 CT, abdomen + pelvis, w/o contrast 2023 024 [facility] (X-Ray), [address], [place], [address], 4 09:42:43 XR, lumbosacral spine, 2 or 3 view 2022 023 [facility] (X-Ray), [address], [place], [address], 3 19:29:47 XR, knee, 3 view 2022 023 [facility] (X-Ray), [address], [place], [address], 3 19:32:26 XR, hip, unilateral, 2 or 3 view 2022 023 [facility] (X-Ray), [address], [place], [address], 3 19:36:01 Medication Orders cephalexin 500 mg capsule 2023 024 [facility], [address], [address], 4 14:07:47 cephalexin 500 mg capsule 2022 023 [facility], [address], [address], 4 13:33:40 Zithromax Z-Douglas 250 mg tablet 2022 023 [facility], [address], [address], 4 13:33:35 cephalexin 500 mg capsule 2022 023 [facility], [address], [address], 4 13:33:40 Diflucan 100 mg tablet 2022 023 [facility], [address], [address], 4 13:33:47 Patient TargetsNo targets recorded. Patient Instructions Encounter Date Encounter Id Patient Instructions Last Modified By Organization Details Last Modified Time 05/29/2023 [id number] Please consult o ur office promptly if [...] neck or have trouble opening your mouth [email or web address] Not available 05/29/2023 14:32:49 You can give [...] symptoms, RTC sooner or go to ER. [email or web address] Not available 05/29/2023 14:33:18 Reason for Referral Manager Division Referral fo r Pharyngitis Referring Physician: Mj Pugh, Family Medicine, Encounter Date: 05/29/2023 Results Created Date Observation Date Name Description Value Unit Range Abnormal Flag Note LastModifiedBy Organization Detail LastModifiedTime 12/22/19 23 12/24/2022 RHEUM ATOID FACTO R (RF) rheumatoid factor (rf) <10.0 IU/mL <14.0 Not Available [facility]) [address] [facility], [place], [address], 12/25/2022 13:06:35 12/22/19 23 12/25/2022 OSMEL W/REF PRECIOUS IF POSIT HERNAN OSMEL direct Negati ve negati ve Not Available [facility] ([facility]) [address] [facility], [place], [address], 12/25/2022 13:06:35 12/22/19 23 12/23/2022 SEDIM ENTAT ION RATE- WESTE RGREN sedimentatio n rate-westerg dequan 10 mm/HR 0-32 Not Available [facility] ([facility]) [address] [facility], [place], [address], 12/25/2022 13:06:36 12/22/19 23 12/24/2022 C-JOSE ELIAS CTIVE PROTE IN, QUANT C-reactive protein, quant <1 mg/L 0-10 Not Available [facility] ([facility]) [address] [facility], [place], [address], 12/25/2022 13:06:36 12/22/19 23 12/24/2022 URINE CULTU RE, ROUTI NE urine culture, routine Final report Not Available [facility] ([facility]) [address] [place], [address], 12/25/2022 13:06:37 12/22/19 23 12/24/2022 URINE CULTU RE, ROUTI NE result 1 Commen t Cultu re shows less than 10,00 0 colon y formi ng units of bacte arely per iam liter of urine . This colon y count is not gener ally consi dered to be clini anders signi fican t. Not Available [facility] ([facility]) [address] [facility], [place], [address], 12/25/2022 13:06:37 12/22/19 23 12/22/2022 urina lysis , dipst ick Leukocytes Negati ve Not Available [address], [address], 12/22/2022 10:50:24 12/22/19 23 12/22/2022 urina lysis , dipst ick Nitrite negati ve Not Available [address], [address], 12/22/2022 10:50:24 12/22/19 23 12/22/2022 urina lysis , dipst ick Urobilinogen .2 Not Available [facility] [address], [address], 12/22/2022 10:50:24 12/22/19 23 12/22/2022 urina lysis , dipst ick Protein Negati ve Not Available [address], [address], 12/22/2022 10:50:24 12/22/19 23 12/22/2022 urina lysis , dipst ick pH 7.5 Not Available [address], [address], 12/22/2022 10:50:24 12/22/19 23 12/22/2022 urina lysis , dipst ick Blood Negati ve Not Available [address], [address], 12/22/2022 10:50:24 12/22/19 23 12/22/2022 urina lysis , dipst ick Specific [place] 1.020 Not Available [address], [address], 12/22/2022 10:50:24 12/22/19 23 12/22/2022 urina lysis , dipst ick Ketone Negati ve Not Available [address], [address], 12/22/2022 10:50:24 12/22/19 23 12/22/2022 urina lysis , dipst ick Bilirubin Negati ve Not Available [address], [address], 12/22/2022 10:50:24 12/22/19 23 12/22/2022 urina lysis , dipst ick Glucose Negati ve Not Available [address], [address], 12/22/2022 10:50:24 12/22/19 23 12/22/2022 urina lysis , dipst ick Appearance Clear Not Available [address], [address], 12/22/2022 10:50:24 12/22/19 23 12/22/2022 urina lysis , dipst ick Color Yellow Not Available [address], [address], 12/22/2022 10:50:24 01/12/20 23 01/12/2023 urina lysis , dipst ick Leukocytes Negati ve Not Available [address], [address], 01/12/2023 14:12:04 01/12/20 23 01/12/2023 urina lysis , dipst ick Nitrite negati ve Not Available [address], [address], 01/12/2023 14:12:04 01/12/20 23 01/12/2023 urina lysis , dipst ick Urobilinogen .2 Not Available [facility] [address], [address], 01/12/2023 14:12:04 01/12/20 23 01/12/2023 urina lysis , dipst ick Protein Negati ve Not Available [address], [address], 01/12/2023 14:12:04 01/12/20 23 01/12/2023 urina lysis , dipst ick pH 7.0 Not Available [address], [address], 01/12/2023 14:12:04 01/12/20 23 01/12/2023 urina lysis , dipst ick Blood Negati ve Not Available [address], [address], 01/12/2023 14:12:04 01/12/20 23 01/12/2023 urina lysis , dipst ick Specific [place] 1.025 Not Available [address], [address], 01/12/2023 14:12:04 01/12/20 23 01/12/2023 urina lysis , dipst ick Ketone Negati ve Not Available [address], [address], 01/12/2023 14:12:04 01/12/20 23 01/12/2023 urina lysis , dipst ick Bilirubin Negati ve Not Available [address], [address], 01/12/2023 14:12:04 01/12/20 23 01/12/2023 urina lysis , dipst ick Glucose Negati ve Not Available [address], [address], 01/12/2023 14:12:04 01/12/20 23 01/12/2023 urina lysis , dipst ick Appearance Clear Not Available [address], [address], 01/12/2023 14:12:04 01/12/20 23 01/12/2023 urina lysis , dipst ick Color Yellow Not Available [address], [address], 01/12/2023 14:12:04 01/12/20 23 01/12/2023 HbA1c (hemo globi n A1c), blood HbA1C 5.2 % Not Available [address], [address], 01/12/2023 14:12:16 05/18/20 23 05/18/2023 rapid strep group A, throa t Strep negati ve Not Available [address], [address], 05/18/2023 14:26:56 05/18/20 23 05/18/2023 rapid strep group A, throa t Culture No Not Available [address], [address], 05/18/2023 14:26:56 05/09/20 24 05/10/2024 TSH+F REE T4 TSH 1.920 uIU/m L 0.450- 4.500 Not Available [facility] ([facility]) [address] [place], [address], 05/11/2024 08:04:13 05/09/20 24 05/10/2024 TSH+F REE T4 T4,free(dire ct) 1.07 NG/dL 0.82-1 .77 Not Available [facility] ([facility]) [address] [facility], [place], [address], 05/11/2024 08:04:13 05/09/20 24 05/10/2024 CBC WITH DIFFE RENTI AL/PL ATELE T WBC 9.0 x10e3 /uL 3.4-10 .8 Not Available [facility] ([facility]) [address] [facility], [place], [address], 05/11/2024 08:04:13 05/09/20 24 05/10/2024 CBC WITH DIFFE RENTI AL/PL ATELE T RBC 3.96 x10e6 /uL 3.77-5 .28 Not Available [facility] ([facility]) [address] [place], [address], 05/11/2024 08:04:13 05/09/20 24 05/10/2024 CBC WITH DIFFE RENTI AL/PL ATELE T hemoglobin 12.9 g/dL 11.1-1 5.9 Not Available [facility] ([facility]) [address] [facility], [place], [address], 05/11/2024 08:04:13 05/09/20 24 05/10/2024 CBC WITH DIFFE RENTI AL/PL ATELE T hematocrit 37.2 % 34.0-4 6.6 Not Available [facility] ([facility]) [address] [place], [address], 05/11/2024 08:04:13 05/09/20 24 05/10/2024 CBC WITH DIFFE RENTI AL/PL ATELE T MCV 94 fL 79-97 Not Available [facility] ([facility]) [address] [place], [address], 05/11/2024 08:04:13 05/09/20 24 05/10/2024 CBC WITH DIFFE RENTI AL/PL ATELE T MCH 32.6 pg 26.6-3 3.0 Not Available [facility] ([facility]) [address] [place], [address], 05/11/2024 08:04:13 05/09/20 24 05/10/2024 CBC WITH DIFFE RENTI AL/PL ATELE T MCHC 34.7 g/dL 31.5-3 5.7 Not Available [facility] ([facility]) [address] [facility], [place], [address], 05/11/2024 08:04:13 05/09/20 24 05/10/2024 CBC WITH DIFFE RENTI AL/PL ATELE T RDW 12.5 % 11.7-1 5.4 Not Available [facility] ([facility]) [address] [facility], [place], [address], 05/11/2024 08:04:13 05/09/20 24 05/10/2024 CBC WITH DIFFE RENTI AL/PL ATELE T platelets 323 x10e3 /uL 150-45 0 Not Available [facility] ([facility]) [address] [facility], [place], [address], 05/11/2024 08:04:13 05/09/20 24 05/10/2024 CBC WITH DIFFE RENTI AL/PL ATELE T neutrophils 69 % not estab. Not Available [facility] ([facility]) [address] [facility], [place], [address], 05/11/2024 08:04:13 05/09/20 24 05/10/2024 CBC WITH DIFFE RENTI AL/PL ATELE T lymphs 24 % not estab. Not Available [facility] ([facility]) [address] [facility], [place], [address], 05/11/2024 08:04:13 05/09/20 24 05/10/2024 CBC WITH DIFFE RENTI AL/PL ATELE T monocytes 5 % not estab. Not Available [facility] ([facility]) [address] [facility], [place], [address], 05/11/2024 08:04:13 05/09/20 24 05/10/2024 CBC WITH DIFFE RENTI AL/PL ATELE T eos 1 % not estab. Not Available [facility] ([facility]) [address] [place], [address], 05/11/2024 08:04:13 05/09/20 24 05/10/2024 CBC WITH DIFFE RENTI AL/PL ATELE T basos 1 % not estab. Not Available [facility] ([facility]) [address] [facility], [place], [address], 05/11/2024 08:04:13 05/09/20 24 05/10/2024 CBC WITH DIFFE RENTI AL/PL ATELE T immature cells EARTH MOVING TECHNICIAN Not Available [facility] ([facility]) [address] [place], [address], 05/11/2024 08:04:13 05/09/20 24 05/10/2024 CBC WITH DIFFE RENTI AL/PL ATELE T neutrophils (absolute) 6.3 x10e3 /uL 1.4-7. 0 Not Available [facility] ([facility]) [address] [place], [address], 05/11/2024 08:04:13 05/09/20 24 05/10/2024 CBC WITH DIFFE RENTI AL/PL ATELE T lymphs (absolute) 2.2 x10e3 /uL 0.7-3. 1 Not Available [facility] ([facility]) [address] [place], [address], 05/11/2024 08:04:13 05/09/20 24 05/10/2024 CBC WITH DIFFE RENTI AL/PL ATELE T monocytes(ab solute) 0.4 x10e3 /uL 0.1-0. 9 Not Available [facility] ([facility]) [address] [place], [address], 05/11/2024 08:04:13 06/21/20 24 05/10/2024 CBC WITH DIFFE RENTI AL/PL ATELE T eos (absolute) 0.1 x10e3 /uL 0.0-0. 4 Not Available [facility] ([facility]) [address] [facility], [place], [address], 05/11/2024 08:04:13 05/09/20 24 05/10/2024 CBC WITH DIFFE RENTI AL/PL ATELE T baso (absolute) 0.1 x10e3 /uL 0.0-0. 2 Not Available [facility] ([facility]) [address] [facility], [place], [address], 05/11/2024 08:04:13 05/09/20 24 05/10/2024 CBC WITH DIFFE RENTI AL/PL ATELE T immature granulocytes 0 % not estab. Not Available [facility] ([facility]) [address] [facility], [place], [address], 05/11/2024 08:04:13 05/09/20 24 05/10/2024 CBC WITH DIFFE RENTI AL/PL ATELE T immature grans (abs) 0.0 x10e3 /uL 0.0-0. 1 Not Available [facility] ([facility]) [address] [facility], [place], [address], 05/11/2024 08:04:13 05/09/20 24 05/10/2024 CBC WITH DIFFE RENTI AL/PL ATELE T NRBC EARTH MOVING TECHNICIAN Not Available [facility] ([facility]) [address] [facility], [place], [address], 05/11/2024 08:04:13 05/09/20 24 05/10/2024 CBC WITH DIFFE RENTI AL/PL ATELE T hematology comments: EARTH MOVING TECHNICIAN Not Available [facility] ([facility]) [address] [facility], [place], [address], 05/11/2024 08:04:13 05/09/20 24 05/10/2024 COMP. METAB OLIC PANEL (14) glucose 85 mg/dL 70-99 Not Available [facility] ([facility]) [address] [place], [address], 05/11/2024 08:04:14 05/09/20 24 05/10/2024 COMP. METAB OLIC PANEL (14) BUN 6 mg/dL 6-20 Not Available [facility] ([facility]) [address] [place], [address], 05/11/2024 08:04:14 05/09/20 24 05/10/2024 COMP. METAB OLIC PANEL (14) creatinine 0.64 mg/dL 0.57-1 .00 Not Available [facility] ([facility]) [address] [place], [address], 05/11/2024 08:04:14 05/09/20 24 05/10/2024 COMP. METAB OLIC PANEL (14) eGFR 121 mL/mi n/1.7 3 >59 Not Available [facility] ([facility]) [address] [place], [address], 05/11/2024 08:04:14 05/09/20 24 05/10/2024 COMP. METAB OLIC PANEL (14) BUN/creatini ne ratio 9 9-23 Not Available [facility] ([facility]) [address] [place], [address], 05/11/2024 08:04:14 05/09/20 24 05/10/2024 COMP. METAB OLIC PANEL (14) sodium 139 mmol/ L 134-14 4 Not Available [facility] ([facility]) [address] [place], [address], 05/11/2024 08:04:14 05/09/20 24 05/10/2024 COMP. METAB OLIC PANEL (14) potassium 3.8 mmol/ L 3.5-5. 2 Not Available [facility] ([facility]) [address] [place], [address], 05/11/2024 08:04:14 05/09/20 24 05/10/2024 COMP. METAB OLIC PANEL (14) chloride 101 mmol/ L 96-106 Not Available [facility] ([facility]) [address] [place], [address], 05/11/2024 08:04:14 05/09/20 24 05/10/2024 COMP. METAB OLIC PANEL (14) carbon dioxide, total 23 mmol/ L 20-29 Not Available [facility] ([facility]) [address] [place], [address], 05/11/2024 08:04:14 05/09/20 24 05/10/2024 COMP. METAB OLIC PANEL (14) calcium 9.4 mg/dL 8.7-10 .2 Not Available [facility] ([facility]) [address] [place], [address], 05/11/2024 08:04:14 05/09/20 24 05/10/2024 COMP. METAB OLIC PANEL (14) protein, total 7.0 g/dL 6.0-8. 5 Not Available [facility] ([facility]) [address] [place], [address], 05/11/2024 08:04:14 05/09/20 24 05/10/2024 COMP. METAB OLIC PANEL (14) albumin 4.6 g/dL 3.9-4. 9 Not Available [facility] ([facility]) [address] [place], [address], 05/11/2024 08:04:14 05/09/20 24 05/10/2024 COMP. METAB OLIC PANEL (14) globulin, total 2.4 g/dL 1.5-4. 5 Not Available [facility] ([facility]) [address] [place], [address], 05/11/2024 08:04:14 05/09/20 24 05/10/2024 COMP. METAB OLIC PANEL (14) bilirubin, total 0.3 mg/dL 0.0-1. 2 Not Available [facility] ([facility]) [address] [place], [address], 05/11/2024 08:04:14 05/09/20 24 05/10/2024 COMP. METAB OLIC PANEL (14) alkaline phosphatase 65 IU/L 44-121 Not Available [facility]) [address] [place], [address], 05/11/2024 08:04:14 05/09/20 24 05/10/2024 COMP. METAB OLIC PANEL (14) AST (SGOT) 14 IU/L 0-40 Not Available [facility] ([facility]) [address] [place], [address], 05/11/2024 08:04:14 05/09/20 24 05/10/2024 COMP. METAB OLIC PANEL (14) ALT (SGPT) 14 IU/L 0-32 Not Available [facility] ([facility]) [address] [place], [address], 05/11/2024 08:04:14 05/09/20 24 05/10/2024 FSH AND LH LH 7.1 mIU/m L Adult Femal e Range Folli cular phase 2.4 - 12.6 Ovula tion phase 14.0 - 95.6 Lutea l phase 1.0 - 11.4 Postm enopa usal 7.7 - 58.5 Not Available [facility] ([facility]) [address] [place], [address], 05/11/2024 08:04:14 05/09/20 24 05/10/2024 FSH AND LH FSH 4.3 mIU/m L Adult Femal e Range Folli cular phase 3.5 - 12.5 Ovula tion phase 4.7 - 21.5 Lutea l phase 1.7 - 7.7 Postm enopa usal 25.8 - 134.8 Not Available [facility] ([facility]) [address] [place], [address], 05/11/2024 08:04:14 05/09/20 24 05/10/2024 HEMOG LOBIN A1C hemoglobin A1C 5.6 % 4.8-5. 6 Predi abete s: 5.7 - 6.4 Diabe chi: >6.4 Glyce rodriguez contr ol for adult s with diabe chi: <7.0 Not Available [facility] ([facility]) [address] [place], [address], 05/11/2024 08:04:15 05/09/20 24 05/10/2024 ESTRA DIOL estradiol 89.0 pg/mL Adult Femal e Range Folli cular phase 12.5 - 166.0 Ovula tion phase 85.8 - 498.0 Lutea l phase 43.8 - 211.0 Postm enopa usal <6.0 - 54.7 Pregn bridget 1st trime ster 215.0 - >4300 .0 Afua ECLIA metho dolog y Not Available [facility] ([facility]) [address] [place], [address], 05/11/2024 08:04:15 05/09/20 24 05/10/2024 PROGE STERO NE progesterone 1.4 NG/mL Folli cular phase 0.1 - 0.9 Lutea l phase 1.8 - 23.9 Ovula tion phase 0.1 - 12.0 Pregn ant First trime ster 11.0 - 44.3 Secon d trime ster 25.4 - 83.3 Third trime ster 58.7 - 214.0 Postm enopa usal 0.0 - 0.1 Not Available [facility] ([facility]) [address] [place], [address], 05/11/2024 08:04:16 05/09/20 24 05/11/2024 URINE CULTU RE, ROUTI NE urine culture, routine Final report Not Available [facility] ([facility]) [address] [facility], [place], [address], 05/11/2024 08:04:16 05/09/20 24 05/11/2024 URINE CULTU RE, ROUTI NE result 1 COMMEN T Mixed uroge nital karley 10,00 0-25, 000 colon y formi ng units per mL Not Available [facility] ([facility]) [address] [facility], [place], [address], 05/11/2024 08:04:16 05/09/20 24 05/09/2024 pregn bridget test, urine HCG negati ve Not Available [address], [address], 05/09/2024 14:02:13 05/09/20 24 05/09/2024 urina lysis , dipst ick Leukocytes Negati ve Not Available [address], [address], 05/09/2024 13:41:12 05/09/20 24 05/09/2024 urina lysis , dipst ick Nitrite negati ve Not Available [address], [address], 05/09/2024 13:41:12 05/09/20 24 05/09/2024 urina lysis , dipst ick Urobilinogen .2 Not Available [facility], [address], 05/09/2024 13:41:12 05/09/20 24 05/09/2024 urina lysis , dipst ick Protein Negati ve Not Available [address], [address], 05/09/2024 13:41:12 05/09/20 24 05/09/2024 urina lysis , dipst ick pH 7.0 Not Available [address], [address], 05/09/2024 13:41:12 05/09/20 24 05/09/2024 urina lysis , dipst ick Blood Negati ve Not Available [address], [address], 05/09/2024 13:41:12 05/09/20 24 05/09/2024 urina lysis , dipst ick Specific [place] 1.025 Not Available [address], [address], 05/09/2024 13:41:12 05/09/20 24 05/09/2024 urina lysis , dipst ick Ketone Negati ve Not Available [address], [address], 05/09/2024 13:41:12 05/09/20 24 05/09/2024 urina lysis , dipst ick Bilirubin Negati ve Not Available [address], [address], 05/09/2024 13:41:12 05/09/20 24 05/09/2024 urina lysis , dipst ick Glucose Negati ve Not Available [address], [address], 05/09/2024 13:41:12 05/09/20 24 05/09/2024 urina lysis , dipst ick Appearance Clear Not Available [address], [address], 05/09/2024 13:41:12 05/09/20 24 05/09/2024 urina lysis , dipst ick Color Yellow Not Available [address], [place], [address], 05/09/2024 13:41:12 01/01/20 23 01/01/2023 XR, lumbo sacra l spine , 2 or 3 view No observ ation record ed. [address], [place], [id number], 01/04/2023 11:05:44 01/01/20 23 01/01/2023 XR, knee, 3 view No observ ation record ed. [address], [place], [address], 01/04/2023 11:05:45 01/01/20 23 01/01/2023 XR, hip, unila teral , 2 or 3 view No observ ation record ed. [address], [place], [address], 01/04/2023 11:05:45 03/02/20 23 03/02/2023 US, trans vagin al No observ ation record ed. [address], [place], [address], 03/05/2023 08:30:42 05/15/20 24 05/15/2024 US, pelvi s, trans abdom inal + trans vagin al No observ ation record ed. [facility] (X-Ray) [address] [place] [address] [address], [place], [address], 05/16/2024 12:37:58 05/15/20 24 05/15/2024 US, pelvi s, trans abdom inal + trans vagin al No observ ation record ed. [facility] [address], [place], [address], 05/16/2024 12:37:58 05/31/2005/31/2025 CT, lumba r spine , w/o contr ast No observ ation record ed. [facility] [address], [place], [address], 06/01/2025 08:19:18 05/31/2005/31/2025 CT, thora cic spine , w/o contr ast No observ ation record ed. [facility] [address], [place], [address], 06/01/2025 08:19:05 05/31/2005/31/2025 CT, cervi danitza spine , w/o contr ast No observ ation record ed. [facility] [address], [place], [address], 06/01/2025 08:18:37 Result Notes None recorded. Problems Name Problem SNOMED Code Status Onset Date Resolution Date Notes Provider Name and Address Organization Details Recorded Time Uses oral contraception 9457547 Active 2015 Celina Edwards [facility], [place] - [facility] 2 11:32:11 Pharyngitis 483402849 Active 2022 Mj Pugh, MANAGER OFFICE SERVICES [address], [place], [address], [place] - [facility] 3 11:49:20 Problem Notes None recorded. Procedures Surgical History Date Name Laterality Status Provider Name and Address Organization Details Recorded Time 08/19/20 23 Endometrial Ablation completed Lissette Valadez, MANAGER OFFICE SERVICES [address], [place], [address], [place] - [facility] 05/09/2024 13:59:01 01/06/20 16 Date of Last Pap Smear completed Celina Edwards [place] - [facility] 07/11/2022 11:32:11 Tubal Ligation completed Kellee Cards [place] - [facility] 07/10/2022 16:16:23 extraction of wisdom tooth completed Kellee Cards [place] - [facility] 07/10/2022 16:16:29 Imaging Results None recorded. Procedure Notes None recorded. Medical Equipment None Reported. Allergies Allergen ID Allergen Name Allergen Category Reaction Reaction Severity Criticality Documentation Date Start Date Code Code System Note Provider Name and Address Organization Details Recorded Time 37403 Product containin g penicilli n (product) medicatio n Not available Not available Not available 08/25/20162014 51897 8001 SNOMED Celina Edwards [place], [place] - [facility] 2 11:32:12 Medications Name [...] nued on: 09/19/20 10 11:00AM; User: aria TeresaEstRan Fisher on: 03/21/20 09;Indic ation: Acne Vulgaris [...] sodium 75 mg oral tablet,d elayed release (/EC); Recorded Status: Recorded on: 07/14/20 16 11:23AM; [...] Disconti nued on: 01/06/20 16 9:47AM;U ser: edvin Avilati on: Drug eruption - (693.0); Pharmacy Verified [...] ser: [email or web address]; Indicati on: Acne Vulgaris - (3203 ) Not Available Not Available Not Available methylpre [...] ser: aria ;Est. Completi on: 03/04/20 16;Pharm acyVerif ied: 09/06/20 15 11:58AM Not Available Not Available Not Available imipramin e 25 mg tablet take 1 tablet (25 mg) by oral route [facility] 09/19 completed imiprami ne HCl 25 mg oral tablet;c omment: pt says does not take;Rec orded Status: Recorded on: 09/22/20 08 3:02PM;D iscontin ued Status: Disconti nued on: 09/19/20 10 11:00AM; User: aria ;Est. Completi on: 03/21/20 09;Indic ation: Depressi on - (9492 ) Not Available Not Available Not Available loratadin e 10 mg tablet take 1 tablet (10 mg) by oral route once daily for 14 days 01/06 completed loratadi ne 10 mg oral tablet;P rescribe Status: Prescrib ed on: 10/05/20 15 1:09PM;D iscontin ued Status: Disconti nued on: 01/06/20 16 9:47AM;U ser: [email or web address]; Est. Completi on: 10/19/20 15;Indic ation: Urticari a - (12.7089 00);Phar Clarence fied: 10/05/20 15 1:09PM Not Available [...] nued on: 08/09/20 15 12:44PM; User: [email or web address] Est. Completi on: 07/31/20 10;Print ed: 02/02/20 10 Not Available Not Available Not Available Minastrin 24 Fe 1 mg-20 mcg (24)/75 mg (4) chewable tablet chew 1 tablet by oral route once daily for 28 days 08/09 completed Minastri n 24 Fe 1 mg-20 mcg(24) /75 mg (4) oral tablet,lizz gould; Prescrib e Status: Prescrib ed on: 06/29/20 15 [...] Updated DateTime 3 159.13 cm 28.7 kg/m2 59726.7 8 g 94 /min 98 % 98 % 18 /min 97.8 [degF] 120/74 mm[Hg] Kellee Stears [place] - [facility] 3 10:55:34 Date Recorded Body height Body mass index (BMI) Body weight Body temperature Heart rate Oxygen saturation Oxygen saturation in Arterial blood by Pulse oximetry Respiratory rate Provider Name and Address Organization Details Last Updated DateTime 3 159.13 cm 29.1 kg/m2 74696.7 6 g 97.9 [degF] 97 /min 98 % 98 % 18 /min Brisa Garibay [place] - [facility] 3 13:40:40 Date Recorded Body height Body mass index (BMI) Body weight Body temperature Heart rate Oxygen saturation Oxygen saturation in Arterial blood by Pulse oximetry Respiratory rate Systolic And Diastolic Provider Name and Address Organization Details Last Updated DateTime 4 159.13 cm 25.4 kg/m2 63409.1 2 g 97.6 [degF] 110 /min 99 % 99 % 18 /min 122/76 mm[Hg] Brisa Garibay [place] - [facility] 4 13:39:32 Date Recorded Body height Body mass index (BMI) Body weight Body temperature Heart rate Oxygen saturation Oxygen saturation in Arterial blood by Pulse oximetry Respiratory rate Systolic And Diastolic Provider Name and Address Organization Details Last Updated DateTime 3 159.13 cm 27.4 kg/m2 36063.6 3 g 98.5 [degF] 99 /min 95 % 95 % 18 /min 110/72 mm[Hg] Brisa Garibay [place] - [facility] 3 14:03:37 Date Recorded Body height Body mass index (BMI) Body weight Body temperature Heart rate Oxygen saturation Oxygen saturation in Arterial blood by Pulse oximetry Respiratory rate Systolic And Diastolic Provider Name and Address Organization Details Last Updated DateTime 3 159.13 cm 27.6 kg/m2 99286.2 2 g 97.7 [degF] 78 /min 97 % 97 % 18 /min 105/68 mm[Hg] Brisa Garibay [place] - [facility] 3 13:54:42 Social History Question Answer Notes LastModified by Organizat ion Details LastModified Time Tobacco Smoking Status Former Smoker Kellee Ja [place], [place] - [facility] 07/10/2022 16:14:25 Do You Have An Advance Directive? No Information not available 07/10/2022 Are You Blind Or Do You Have Difficulty Seeing? No Information not available 07/10/2022 Is Blood Transfusion Acceptable In An Emergency? Yes [email or web address] Information not available 10/18/2016 What Is Your Level Of Caffeine Consumption? Occasional Information not available 07/10/2022 How Much Tobacco Do You Chew? None [email or web address] Information not available 10/18/2016 Are You Deaf Or Do You Have Serious Difficulty Hearing? No Information not available 07/10/2022 What Type Of Diet Are You Following? REGULAR Information not available 07/10/2022 What Is The Highest Grade Or Level Of School You Have Completed Or The Highest Degree You Have Received? [id number] Information not available 07/10/2022 Have There Been Any Changes To Your Family Or Social Situation? No Information not available 07/10/2022 What Is The Fluoride Status Of Your Home? Unknown Information not available 07/10/2022 Live Alone Or With Others? With Others [email or web address] Information not available 10/18/2016 Do You Have A Medical Power Of Blower Room Attendant? No Information not available 07/10/2022 How Many Children Do You Have? 3 2 Step Children Information not available 07/10/2022 Performs Monthly Self-breast Exam? Yes [email or web address] Information not available 10/18/2016 Do You Use Protection During Sex? Always [email or web address] Information not available 10/18/2016 What Is Your Relationship Status? Information not available 07/10/2022 Seat Belts Used Routinely Yes [email or web address] Information not available 10/18/2016 Are You Sexually Active? Yes [email or web address] Information not available 10/18/2016 Do You Have Smoke And Carbon Monoxide Detectors In Your Home? Yes Information not available 07/10/2022 At What Age Did You Start Smoking Tobacco? 19 [email or web address] Information not available 10/18/2016 Are You Passively Exposed To Smoke? Yes Information not available 07/10/2022 How Much Tobacco Do You Smoke? 0.5 PPD Information not available 10/18/2016 General Stress Level Medium [email or web address] Information not available 10/18/2016 Do You Use Sunscreen Routinely? Yes [email or web address] Information not available 10/18/2016 How Many Years Have You Smoked Tobacco? 2 [email or web address] Information not available 10/18/2016 Do You Have Difficulty Walking Or Climbing Stairs? No Information not available 07/10/2022 How Many Years Have You Used E-cigarettes Or Vape? 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 [id number] works night Information not available 07/10/2022 Do [...] Obesity N Vision or Eye Problems N Restless Leg Syndrome N Arthritis N Infertility N Polyps N Carpal Tunnel [...] Bladder or Kidney Problems N Fracture N Panic Disorder N Schizophrenia N Concussion N Spina Bifida N Osteoarthritis N Parkinson's Disease N Disc Protrusion N STI N Esophagitis N Angina N Thyroid Problems N GI Problems N ADD/ADHD N Anemia N Multiple Sclerosis N Abnormal PAP N Lumbago N Mental Illness N Psychiatric Illness N Diabetes N Ovarian Cancer N Degenerative Disc Disease N Seizures/Epilepsy N Hyperlipidemia N Syncope N Insomnia N Eczema N Abuse/Domestic Violence N Attention Deficient Disorder N Dementia N Ulcerative colitis N Cerebrovascular Disease N Depression N Guillain-Vista N Sleep Apnea N Aneurysm N Bronchitis N Heart Disease N Hypertension N Pre-Eclampsia N Suicidal Ideation N Osteoporosis N Gynecological History Statement/Question Response Date of Last Mammogram Flow Heavy Date of LMP 05/21/2023 Post Menopausal Bleeding N STIs/STDs N Last Lipids Date of Last Colonoscopy Last [facility] Ovarian U/S Screening Abnormal Pap N On [...] Recorded Time DTaP 4 completed [facility] 05[facility]29[facility]23 13:40:25 DTaP 7 completed Not Available [facility] 05/29/2023 13:40:25 Hib (PRP-OMP) 3 completed Not Available [facility] 05/29/2023 13:40:25 Hib (PRP-OMP) 3 completed Not Available [facility] 05/29/2023 13:40:25 Hib (PRP-OMP) 4 completed Not Available [facility] 05/29/2023 13:40:25 Hib (PRP-OMP) 4 completed Not Available [facility] 05/29/2023 13:40:25 IPV 3 completed Not Available [facility] 05/29/2023 13:40:25 IPV 3 completed Not Available [facility] 05/29/2023 13:40:25 IPV 4 completed Not Available [facility] 05/29/2023 13:40:25 IPV 7 completed Not Available [facility] 05/29/2023 13:40:25 MMR 4 completed Not Available [facility] 05/29/2023 13:40:25 MMR 9 completed Not Available [facility] 05/29/2023 13:40:25 varicella 1 completed Not Available [facility] 05/29/2023 13:40:25 meningococcal MCV4P 6 completed Not Available [facility] 05/29/2023 13:40:25 influenza, unspecified formulation 5 completed Not Available [facility] 05/29/2023 13:40:25 influenza, unspecified formulation 6 completed Not Available [facility] 05/29/2023 13:40:25 HPV, unspecified formulation 7 completed Not Available [facility] 05/29/2023 13:40:25 HPV, unspecified formulation 7 completed Not Available [facility] 05/29/2023 13:40:25 HPV, unspecified formulation 8 completed Not Available [facility] 05/29/2023 13:40:25 tetanus toxoid, adsorbed 4 completed Not Available [facility] 05/29/2023 13:40:25 Hep B, adolescent or pediatric 3 completed Not Available [facility] 05/29/2023 13:40:25 Hep B, adolescent or pediatric 3 completed Not Available [facility] 05/29/2023 13:40:25 Hep B, adolescent or pediatric 4 completed Not Available [facility] 05/29/2023 13:40:25 DTaP 3 completed Not Available [facility] 05/29/2023 13:40:25 DTaP 3 completed Not Available [facility] 05/29/2023 13:40:25 DTaP 4 completed Not Available [facility] 05/29/2023 13:40:25 Influenza, split virus, trivalent, preservative 9 completed MON[place] Vázquez - [facility] 09/12/2022 18:39:13 Past Encounters Encounter ID Performer Location Encounter Start Date Encounter Closed Date Diagnosis/Indication Diagnosis SNOMED-CT Code Diagnosis ICD10 Code Diagnosis Note [id number] [facility] [address] [place] [address] 05/10/2009 00:00:00 [id number] [facility] [address] [place] [address] 05/18/2009 00:00:00 [id number] [facility] [address] [place] [address] 08/03/2009 00:00:00 [id number] [facility] [address] [place] [address] 07/14/2016 00:00:00 [id number] [facility] [address] [place] [address] [place] [address] 09/22/2008 00:00:00 [id number] [facility] [address] [place] [address] [address] 10/22/2008 00:00:00 [id number] [facility] [address] [place] [address] [address] 07/19/2010 00:00:00 [id number] [facility] [address] [place] [address] 09/19/2010 00:00:00 [id number] [facility] [address] [place] [address] [address] 08/09/2015 00:00:00 [id number] [facility] [address] [place] [address] [address] 09/06/2015 00:00:00 [id number] [facility] [address] [place] [address] [address] 01/12/2009 00:00:00 [id number] [facility] [address] [place] [address] 10/05/2015 00:00:00 [id number] [facility] [address] [place] [address] 03/19/2009 00:00:00 [id number] [facility] [address] [place] [address] 01/06/2016 00:00:00 [id number] [facility] [address] [place] [address] 05/10/2009 00:00:00 [id number] [facility] [address] [place] [address] 03/30/2016 00:00:00 [id number] [facility] [address] [place] [address] [place] [address] 06/21/2016 00:00:00 [id number] [facility] [address] [place] [address] [address] 07/14/2016 00:00:00 [id number] MIROSLAVA Rios TRANSPORT CONDUCTOR [address] 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 Techniques for quitting smoking discussed including pharmaceut icals (Nicotine patches, gum, Zyban, and Chantix) and behavioral therapy (Dick Trujillo). Immediate and custodial cardiovasc ular and respirator y benefits of smoking cessation discussed. Lung cancer risk reduction also discussed. [id number] Lissette Valadez [address] [address] 07/10/2022 16:07:56 07/10/2022 17:04:11 Fatigue 21312186 R53.83 Obesity 352154739 E66.9 [id number] Lissette Valadez [address] [address] 07/17/2022 08:30:51 07/17/2022 09:04:56 Body mass index 25-29 - overweight 752186638 Z68.27 discussed low calorie/ca rb diet and exercise plandiscus sed options for medication management .pt would like to try contrave- risk and benefits discussed with pt. medication discussed with pt in detail. Overweight 809497621 E66 .3 [id number] Lissette Valadez [address] [place] [address] 09/12/2022 17:50:52 09/12/2022 18:50:30 Acute urinary tract infection 999142824 N39.0 Dysuria 73329439 R30.0 [id number] Lissette Valadez [address] [address] 12/22/2022 10:47:35 12/22/2022 11:50:56 Acute urinary tract infection 004256419 N39.0 increase fluids Low back pain 251444341 M54.50 Pain of ri ght hip joint 6877656089 88002 M25.551 Pain of ri ght knee joint 4608613054 86261 M25.561 Pain of mu ltiple joints 39986649 M25.50 [id number] Lissette Valadez [address] [address] 01/12/2023 13:32:09 01/12/2023 15:00:35 Overactive urinary bladder 626926182 N32.81 if any other symptoms return sooner Pain of mu ltiple joints 72530769 M25.50 labs was wnlcontinu e to monitor tylenol or motrin as needed [id number] Lissette Valadez [address] [address] 05/18/2023 13:33:45 05/18/2023 14:38:16 Pharyngitis 321770245 J02.9 if symptoms worsen return or go to [facility] for fever [id number] Mj Pugh [address] [address] 05/29/2023 13:39:50 05/29/2023 14:24:27 Pharyngitis 615868401 J02.9 [id number] Lissette Valadez [address] [address] 05/09/2024 13:13:09 05/09/2024 14:14:56 Acute urinary tract infection 986699978 N39.0 increase fluidstrea t while waiting for culture Unintentio nal weight loss 686790922 R63.4 Night sweats 59830627 R6 1 Pain in pelvis 89799791 R10.2 if symptoms worsen or no improvemen t return or go to [facility] Concerns Section Related Observation LastModified by Organization Detai ls LastModified Time None Recorded Concern Status LastModified by Organization Details LastModified Time None Recorded Advance Directives Directive N: Payers Insurance Date Sequence Insurance Name Policy Number Policy Ellison Covered Member ID Ellison Member ID Guarantor Name 07/11/2022 1 [facility] (MEDICAID O) Ángela Edwards [id number] Ángela Earlyluisa 05/09/[address] [facility] WR[facility] (MEDICAID) [id number] Ángela Earlyluisa [id number] Ángela Earlywinaleksey 05/09/2024 1 *SELF PAY* Gregory lau luisa 05/15/2024 1 [place] [id number] 01 Ángela Cazares [id number] Ángela Earlywinaleksey 07/11/2022 1 [employer] (MEDICAID REPLACEMENT - HMO) Ángela Calloway Earlyluisa [id number] Ángela Earlywinaleksey 05/09/2024 1 [facility] (MEDICA[facility] H[facility]) Ángela Earlyluisa [id number] Ángela Earlywinaleksey 07/11/2022 1 [place] Ángela [id number] Ángela Earlywinaleksey 05/09/2024 1 [place] [id number] 02 Rickie Cazares [id number] Ángela Earlywine 07/11/2022 1 UNSPECIFIED REMIT PAYOR Ángela Cazares Notes Date Note Type Note Provider Name [...] getting to bathroom fast enough,pelvis pressure Lissette Valadez, MANAGER OFFICE SERVICES [address], [place], [address], [place] [facility] 12/22/2022 11:33:03 01/12/2023 text/html [...] has a sweet smell with freq. Lissette Valadez, MIROSLAVA [address], [place], [address], [place] [facility] 01/12/2023 15:54:35 05/18/2023 text/html Sore ThroatRepor kenyon bypatient.Duration:s tarted 3 day(s) ago Quality:painful;symp toms worse in the evening Severity:mild Context:no recent travel Associated Symptoms:no fever 28 yr old female presents with a swollen tonsil, denies pain in the throat. Has had some dizziness and sweating spells as well. Lissette Issageorgiana, MIROSLAVA [address], [place], [address], [place] [facility] 05/18/2023 14:34:23 05/29/2023 text/html sore [...] none- Associated family history: none Mj Pugh, MANAGER OFFICE SERVICES [address], [place], [address], [facility] - [facility] 05/29/2023 14:39:50 05/09/2024 text/html 31 [...] pt states also having night sweats. Lissette Valadez, MANAGER OFFICE SERVICES [address], [place], [address], [facility] - [facility] 05/09/2024 16:11:33 OBGyn Episode No OBEpisode recorded.
--- NOTE | 2025-06-03 15:30 | US_ITS ---
PROCEDURE: US TRANSVAGINAL CLINICAL INDICATION: RLQP COMPARISON: US US TRANSVAGINAL from 03/02/2023 US US TRANSVAGINAL from 05/15/2024 US US ABDOMEN COMPLETE from 05/15/2024 FINDINGS: Transvaginal sonographic images of the pelvis were obtained. UTERUS: 8.0cm x 4.2cmx 3.8 cm anteverted with a combined endometrial thickness of 4.4mm. The endometrium was difficult to visualize since she has had a previous ablation. There is a fibroid anteriorly measuring 1.1 cm x 1.1 cm x 1.4 cm. There is a posterior fibroid measuring 1.2 cm x 1.0 cm x 1.3 cm. There is a fluid collection in the posterior myometrium measuring 0.84 cm by 0.49 cm x 0.62 cm. This seems to be part of the posterior fibroid. LEFT OVARY: 2.8 cmx2.7 cmx1.6cm with a volume of 6.2ml. There are multiple small peripheral follicles. RIGHT OVARY: 4.6 cmx 3.8 cmx3.3cm with a volume of 30.5ml. There is a dominant follicle in the right ovary measuring 2.5 cm x 2.8 cm x 2.4 cm. Both ovaries are seen and appear normal. Doppler flow to both ovaries are seen. There is a small amount of fluid in the cul-de-sac. IMPRESSION: 1. Anteverted uterus normal in shape and size. The endometrium is difficult to visualize secondary to her previous ablation. 2. There are least 2 fibroids anteriorly and posteriorly in the myometrium. They measure 1.4 cm and 1.3 cm. There is a small amount of fluid within the posterior fibroid measuring up to 0.84 cm. 3. Left ovary is seen and appears somewhat polycystic. The right ovary contains a dominant follicle measuring 2.8 cm. 4. There is a small amount of fluid in the cul-de-sac. Dictated by: Walter Santos MD 06/03/2025 16:44 Walter Santos MD in OV 06/03/2025 16:44
== END 2025-06-03 23:59 | disposition home or self-care (01) ==
LOC: RAD 15:03
PROVIDERS: PCP Nurse Practitioner Family; Visit Provider Nurse Practitioner Obstetrics & Gynecology
DX: D25.1 Intramural leiomyoma of uterus (principal); E28.2 Polycystic ovarian syndrome; M54.89 Other dorsalgia; R93.89 Abnormal findings on diagnostic imaging of other specified body structures; Z98.890 Other specified postprocedural states
CPT/HCPCS: 76830